=== PATIENT | female | born 1990 | race Caucasian/White ===

== ENCOUNTER 2021-08-03 14:51 | Emergency (ER) | payer OTHER, SELFPAY ==
[2021-08-03 15:01] VITALS: BP 129/88; PULSE 85; RESP 18; TEMP 36.4; O2SAT 100; BMI 28.3
--- NOTE | 2021-08-03 18:16 | ED_ITS ---
HPI - General Adult General Chief complaint: General Medical Stated complaint: dental pain Source: patient Mode of arrival: ambulatory Limitations: no limitations History of Present Illness HPI narrative: Patient presents for left-sided upper tooth pain for couple of days. Patient denies any recent trauma to the face or facial swelling. Patient states she is due for a root canal, but due to they would not perform root canal. Patient is 22 weeks . Patient denies any fever, chills, neck swelling, nausea, vomiting, or shortness of breath. During evaluation patient informed me that also she has not felt baby move since 05:00. Patient denies any abdominal pain or vaginal bleeding. Related Data Previous Rx's Medication Instructions Recorded acetaminophen 325 mg capsule 325 mg PO QID PRN #28 cap 08/03/21 (Tylenol) amoxicillin 500 mg tablet 500 mg PO Q8H 10 Days #30 tab 08/03/21 Allergies Allergy/AdvReac Type Severity Reaction Status Date / Time No Known Allergies Allergy Mild UNKNOWN Verified 08/03/21 15:06 Review of Systems Review of Systems: Yes all other systems are reviewed and are negative Constitutional: Constitutional: Reports as per HPI and Reports no additional constitutional complaints Eyes: Eyes: Reports as per HPI and Reports no additional eye complaints ENT: Reports system reviewed and no additional complaints, except as documented and Reports as per HPI Comments: Dental pain Cardiovascular: Cardiovascular: Reports as per HPI and Reports no additional cardiovascular complaints Respiratory: Respiratory: Reports as per HPI and Reports no additional respiratory complaints Gastrointestinal: Gastrointestinal: Reports as per HPI and Reports no additional gastrointestinal complaints Comments: Not feeling baby move Genitourinary: Genitourinary: Reports no additional female genitourinary complaints and Reports as per HPI Musculoskeletal: Musculoskeletal: Reports no additional musculoskeletal complaints and Reports as per HPI Neurologic: Reports system reviewed and no additional complaints, except as documented and Reports as per HPI Psychiatric: Psychiatric: Reports no additional psychiatric complaints and Reports as per HPI [facility] Past Medical History Medical History (Updated 08/03/21 @ 19:09 by RUDY Jones) Thyroid disease Social History Social History Alcohol intake: never Patient Tobacco Use Status: Never used Tobacco Physical Exam Vital Signs: Vital Signs: Last Vital Signs Temp 97.5 F 08/03/21 15:01 Pulse 85 08/03/21 15:01 Resp 18 08/03/21 15:01 BP 129/88 08/03/21 15:01 Pulse Ox 100 08/03/21 15:01 Body Mass Index 28.3 Const: General: cooperative, healthy appearing, comfortable, no acute distress, well developed, alert, awake and Physically active Orientation/consciousness: patient oriented x3 HENMT: Head: Yes normal to inspection, Yes No palpable skull fracture present, Yes normocephalic, Yes atraumatic and No abrasion Teeth image: 1. Tenderness on palpation. Negative for gum swelling, gum redness, or active pus discharge. Negative for facial swelling or neck swelling. Negative for drooling. Negative for change in voice or hoarseness. Eyes: General: appearance normal, both eyes and all related structures Neck: Neck: Yes normal visual inspection, Yes full ROM, Yes no lymphadenopathy, Yes no meningeal signs, Yes trachea midline, Yes supple and No tender Chest: Chest palpation & inspection: normal inspection of the chest and normal palpation of entire chest wall Resp: Effort & Inspection: normal respiratory effort and able to speak in complete sentences Auscultation: clear to auscultation bilaterally Cardio: Jugular venous distension: no JVD Heart sounds: S1 normal heart sound present and S2 normal heart sound present GI: Other: 5 months Palpation (GI): Soft to palpation, not firm, nontender, no guarding and not rigid : General: No CVA tenderness and Yes no CVA tenderness Back/Spine/Pelvis: Back: no CVA tenderness, No CVA tenderness and No back tenderness Skin: General skin exam: no rashes or lesions noted and elasticity normal Neuro: General: patient oriented x3, gait normal, no meningeal signs and CN's II-XI intact bilaterally Cranial nerves: Yes CN's II-XII intact bilaterally Extrem: Other: Lower extremities negative for swelling, pitting edema, or calf Psych: Appearance: grossly normal, well kempt and not disheveled Course Course Course Narrative: Patient will be given Tylenol and antibiotic prescription. Bedside transabdominal ultrasound shows fetus moving with heart rate of 140. Will consult Dr. Small your OBGYN to see for possible transfer. Reevaluation(s) Reevaluation #1: Dr. Small Recommends patient be transferred to [facility] for monitoring of fetus on the strip. 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 Patient states she she should go to [facility] immediately if patient having abdominal pain, vaginal bleeding, decrease babys movement. Patient states she will go in the morning. Patient informs necessity for evaluation of fetus and the importance of heart rhythm on the strip and monertering of fetus, but patient states she has to take care of her daughter. Patient discharged with antibiotic. Time: 19:05 Medical Decision Making MDM Narrative Medical decision making narrative: Tooth pain Discharge Plan Discharge Clinical Impression: Toothache, Currently Patient Disposition: Home, Self-Care Instructions: Toothache (ED), at 19 to 22 Weeks (ED) Additional Instructions: Dr. Staci Cameron, our OBGYN on-call recommended you be transferred to [facility] for further evaluation/monitoring immediately after being discharged. Since you presently refuse to go to [facility], I would recommend going to [facility] immediately if once again not able to feel fetus, severe abdominal pain, vaginal bleeding, weakness, dizziness, nausea, vomiting, or any other concerning symptoms. Prescriptions: New amoxicillin 500 mg tablet 500 mg PO Q8H 10 Days Qty: 30 RF: 0 acetaminophen [Tylenol] 325 mg capsule 325 mg PO QID PRN (Reason: pain) Qty: 28 RF: 0 Interventions: ED Discharge Assessment Last Done: 08/03/21 19:47 Discharge Date/Time: 08/03/21 19:49 Print Language: Vietnamese
--- NOTE | 2021-08-03 18:37 | PC.NURSE ---
heart tone 140
--- NOTE | 2021-08-03 19:16 | PM.OBCN ---
OB Consult Note - [facility] Data Service Date: 08/03/21 Primary Care Provider: None Physician Narrative I was consulted regarding Pascale Dooley who is a 31 year old female who presented to the emergency room at 22 weeks of gestation with toothache and complaining of decreased movement, no abdominal cramping vaginal bleeding or leakage of fluid. 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 Review of Systems ROS Unobtainable: All systems reviewed & are unremarkable except as noted in HPI and below OB PMFSH Past Medical History Medical History (Updated 08/03/21 @ 19:09 by RUDY Jones) Thyroid disease Social History Social History Alcohol intake: never Patient Tobacco Use Status: Never used Tobacco Use of substances other than those prescribed or required for medical reasons: No Advance Directives: No Advance Directives Information Provided: No Patient : Yes Meds Allergies Allergy/AdvReac Type Severity Reaction Status Date / Time No Known Allergies Allergy Mild UNKNOWN Verified 08/03/21 15:06 OB - CN: A/P Assessment and Plan (1) Currently : Status: Acute Assessment and Plan: Since the patient is having decreased movement and 22 weeks of gestation , I recommended for the [facility], and OB ultrasound for a well-being check. I was contacted back by RUDY Veloz stating that the patient declined to go to [facility], recommended for the following instructions to be explained to the patient the importance of going to [facility] triage area to evaluate well-being with a heart rate strip monitoring and an OB ultrasound to rule out any abnormalities and to explain to the patient the risk of not going l might affect patient well-being, delay diagnosis of any abnormality and can lead to possiblefetal . I was contacted by [employer] regarding this patient, I did not see the patient or examine her. (2) Toothache: Status: Acute Assessment and Plan: Recommended for the patient to call her dentist regarding treatment recommendation for toothache. Tylenol p.r.n.
== END 2021-08-03 19:49 | disposition home or self-care (01) ==
PROVIDERS: Emergency Provider Emergency Medicine
DX: K08.89 Other specified disorders of teeth and supporting structures (principal)
CPT/HCPCS: 99283; 99284

== ENCOUNTER 2022-01-02 08:44 | Emergency (ER) | payer OTHER, SELFPAY ==
--- NOTE | ~2022-01-02 | CT_ITS ---
EXAMINATION: CT ANGIOGRAM OF THE CHEST WITH AND WITHOUT CONTRAST (CT PULMONARY ANGIOGRAM FOR PE) CLINICAL INFORMATION: Reason for Exam elevated ddimer. . pleuritic cp COMPARISON: Previous chest x-ray September 2015 TECHNIQUE: Prior to contrast administration, noncontrast localization images were obtained. Subsequently, multidetector volumetric imaging was performed from the thoracic inlet to below the diaphragms following the administration of 80 mL Omnipaque 350 intravenous contrast. No contrast reaction reported Sagittal, coronal, and MIP oblique sagittal reformatted images were obtained on the CT workstation, uploaded to PACS, and reviewed. This CT examination was performed using dose optimization techniques as appropriate, variously including the following: *Automated exposure control *Adjustment of mA and/or kV according to patient size (this includes techniques or standardized protocols for targeted exams where dose is matched to indication/reason for exam; i.e. extremities or head) *Use of iterative reconstruction technique Total exam dose-length product mGy-cm FINDINGS: QUALITY OF STUDY/CONTRAST BOLUS: Satisfactory. PULMONARY ARTERIES: No central or segmental pulmonary emboli. THORACIC AORTA: No aneurysm or dissection. LUNG: No focal consolidation, nodules or masses. PLEURA: No pleural effusion or pneumothorax. MEDIASTINUM: Normal heart size. No pericardial effusion. No hilar or mediastinal lymphadenopathy. No evidence of septal bowing or right heart strain. CHEST WALL/AXILLA: No axillary or internal mammary lymphadenopathy. OSSEOUS STRUCTURES: No acute or suspicious osseous abnormality. UPPER ABDOMEN: There are small gallstones. No reflux of contrast into the hepatic veins to suggest elevated right heart pressures. CT/CT angio chest PE protocol IMPRESSION: No evidence of pulmonary embolism. VTE: negative
[2022-01-02 10:07] VITALS: BP 117/76; PULSE 70; RESP 14; TEMP 36.6; O2SAT 99; BMI 30.7
[2022-01-02 11:22] LABS: MANUAL DIFF FLAG NO
[2022-01-02 11:24] LABS: Basophils Percent Auto 0.3 % (0-2); Eosinophils Absolute Auto 0.1 X10*3/uL (0.0-0.4); Eosinophils Percent Auto 1.4 % (0-4); Hematocrit 42.2 % (37.0-47.0); Hemoglobin 14.1 g/dl (12.0-16.0); Imm Gran Abs Auto 0.01 X10*3/uL (0.00-0.03); Imm Gran Pct Auto 0.2 % (0.0-0.4); Lymphocytes Absolute Auto 1.3 X10*3/uL (1.2-4.9); Lymphocytes Percent Auto 22.7 % (20-40); Mean Corpuscular HGB Conc 33.4 g/dl (31.0-35.0); Mean Corpuscular Hemoglobin 32.7 pg (27.0-33.0); Mean Corpuscular Volume 97.9 fL (80.0-98.0); Mean Platelet Volume 9.9 fL (9.4-12.3); Monocytes Absolute Auto 0.3 X10*3/uL (0.1-1.2); Monocytes Percent Auto 5.6 % (2-11); Neutrophils Percent Auto 69.8 % (45-73); Platelet Count 341 X10*3/uL (160-400); Red Blood Count 4.31 X10*6/uL (4.20-5.50); Red Cell Distribution Width 12.1 % (11.0-16.0); White Blood Count 5.7 X10*3/uL (4.8-10.8)
--- NOTE | 2022-01-02 11:31 | ED_ITS ---
HPI - Back Pain/Injury General Chief Complaint: Back Pain/Injury Stated Complaint: Back pain Time Seen by Provider: 01/02/22 10:12 Source: patient Mode of arrival: ambulatory History of Present Illness HPI Narrative: 31-year-old female with a past medical history of thyroid disease, 2 months , presenting to the ED complaining of acute on chronic mid back pain worsening x 3 days. Denies known injury/trauma or fall. Reports pain worse with deep breathing with mild associated SOB from pain. Denies CP, fever, chills, hematuria, flank pain, dysuria, abdominal pain, urinary incontinence/retention. Currently on Depo-Provera. Denies recent travel, history go MD elicited complaint: back pain Pertinent past history: prior back pain Onset (ago): day(s) Related Data Previous Rx's Medication Instructions Recorded acetaminophen 325 mg capsule 325 mg PO QID PRN #28 cap 08/03/21 (Tylenol) amoxicillin 500 mg tablet 500 mg PO Q8H 10 Days #30 tab 08/03/21 acetaminophen 500 mg tablet 500 mg PO Q6H PRN #20 tab 01/02/22 (Tylenol Extra Strength) cyclobenzaprine 5 mg tablet 5 mg PO Q8H PRN 5 Days #14 tab 01/02/22 lidocaine 5 % topical patch 1 patch TOPICAL DAILY PRN #30 ea 01/02/22 (Lidoderm) MDD remove after 12 hours naproxen 500 mg tablet 500 mg PO BID PRN 10 Days #20 tab 01/02/22 Allergies Allergy/AdvReac Type Severity Reaction Status Date / Time No Known Allergies Allergy Mild UNKNOWN Verified 08/03/21 15:06 Review of Systems Review of Systems: Constitutional: No Fever, No Chills, No Fatigue, No Malaise ENT/Mouth: No Ear Pain, No Nasal Congestion, No sore throat, No Rhinorrhea, No Swallowing Difficulty Eyes: No Eye Pain, No Swelling, No Redness Cardiovascular: No Chest Pain, + SOB, No Dyspnea on Exertion, No Orthopnea, No Edema, No Palpitations Respiratory: No Cough, No Sputum, No Dyspnea Gastrointestinal: No Nausea, No Vomiting, No Diarrhea, No Constipation, No Abdominal pain Genitourinary: No Dysuria, No Hematuria, No Urinary Incontinence/retention, No Flank Pain, No Urinary Flow Changes Musculoskeletal: +back joint pain, No Myalgias, No Joint Swelling Skin: No Skin Lesions, No rash Neuro: No Weakness, No Numbness, No Paresthesias, No Headache Yes all other systems are reviewed and are negative Neurologic: Denies Sensory deficit (Neuro) [facility] Past Medical History Attestation statement: The following information was validated with the patient. Medical History Thyroid disease Social History Social History Alcohol intake: never Patient Tobacco Use Status: Never used Tobacco Advance Directives: No Patient : No Physical Exam Vital Signs: Vital Signs: Last Vital Signs Temp 97.8 F 01/02/22 10:07 Pulse 70 01/02/22 10:07 Resp 14 01/02/22 10:07 BP 117/76 01/02/22 10:07 Pulse Ox 99 01/02/22 10:07 BMI result Body Mass Index 30.7 Const: General: cooperative, healthy appearing, comfortable and no acute distress Orientation/consciousness: patient oriented x3 Limitations: no limitations HEENT: Head: Yes normal to inspection and Yes normocephalic Ears: hearing grossly normal bilaterally General nose exam: Normal external nose present Face and sinus: Yes normal facial exam Eyes: General: appearance normal, both eyes and all related structures EOM: EOMs intact bilaterally Neck: Neck: Yes normal visual inspection and Yes no meningeal signs Chest: Chest palpation & inspection: normal inspection of the chest, no crepitus and no tenderness Resp: Effort & Inspection: normal respiratory effort and no respiratory distress Auscultation: clear to auscultation bilaterally Cardio: Rate: regular rate Heart sounds: S1 normal heart sound present and S2 normal heart sound present GI: Inspection: Yes normal to inspection Palpation (GI): Soft to palpation, nontender, no guarding and not rigid : General: Yes no CVA tenderness Back/Spine/Pelvis: Other: No midline cervical/thoracic or lumbar spinous tenderness/step-off or deformity. + bilateral thoracic paraspinal tenderness. No CVA tenderness Back: no CVA tenderness Skin: Rashes: no rashes Wounds: no wounds Neuro: Other: Ambulating with steady gait General: patient oriented x3, gait normal, tone normal, moves all extremities, no meningeal signs and no focal motor deficits Gait exam (Neuro): Normal gait present Motor exam (neuro): 5/5 motor strength present throughout Sensory Exam: No Sensory deficit (Neuro) Extrem: General: Yes normal to inspection Course Course Course Narrative: -1140--D-dimer elevated to 630 > will obtain CTA to rule out PE CT angio chest PE protocol IMPRESSION: No evidence of pulmonary embolism. VTE: negative >> results discussed with patient including worrisome signs and symptoms and strict return precautions and needed follow-up with PCP. Patient not currently breast feeding MDM - Back Pain/Injury MDM Narrative Medical decision making narrative: 31-year-old female with a past medical history of thyroid disease, 2 months , presenting to the ED complaining of acute on chronic mid back pain worsening x 3 days. On exam vital signs stable, NAD/nontoxic, no midline spinous tenderness throughout, no focal neuro deficits. Lungs CTA, no CVA tenderness. Concern for MSK pain/strain vs PE RN low concern for follow/UTI or renal stone. Low concern for pneumonia. Plan: Labs including D-dimer Medical Records Attestation: I reviewed the patient's medical records. Lab Data Attestation: I reviewed the patient's lab results. Result diagrams: 01/02/22 11:12 01/02/22 11:12 Labs: Lab Results 01/02/22 01/02/22 01/02/22 Range/Units 11:12 11:12 11:12 WBC 5.7 (4.8-10.8) X10*3/uL RBC 4.31 (4.20-5.50) X10*6/uL Hgb 14.1 (12.0-16.0) g/dl Hct 42.2 (37.0-47.0) % MCV 97.9 (80.0-98.0) fL MCH 32.7 (27.0-33.0) pg MCHC 33.4 (31.0-35.0) g/dl RDW 12.1 (11.0-16.0) % Plt Count 341 (160-400) X10*3/uL MPV 9.9 (9.4-12.3) fL Immature Gran % (Auto) 0.2 (0.0-0.4) % Neut % (Auto) 69.8 (45-73) % Lymph % (Auto) 22.7 (20-40) % [place] % (Auto) 5.6 (2-11) % Eos % (Auto) 1.4 (0-4) % Baso % (Auto) 0.3 (0-2) % Lymph # (Auto) 1.3 (1.2-4.9) X10*3/uL [place] # (Auto) 0.3 (0.1-1.2) X10*3/uL Eos # (Auto) 0.1 (0.0-0.4) X10*3/uL Baso # (Auto) 0.0 (0.0-0.2) X10*3/uL Abs Immat Gran (auto) 0.01 (0.00-0.03) X10*3/uL Absolute Neuts (auto) 4.0 (2.0-8.3) x10*3/uL Absolute Nucleated RBC 0.000 (0.0-0.012) X10*3/uL Nucleated RBC % (auto) 0.0 (0.0-0.2) /100WBC D-Dimer High Sensitivty 630 NG/ML Sodium 138 (135-145) mmol/L Potassium 4.3 (3.3-5.1) mmol/L Chloride 107 (96-108) mmol/L Carbon Dioxide 23 (22-29) mmol/L Anion Gap 12 (12-20) BUN 6 L (9-16) mg/dL Creatinine 0.63 (0.5-1.4) mg/dL Estim Creat Clear Calc 132.2 Estimated GFR > 60 Random Glucose 81 (60-115) mg/dL Calcium 9.4 (8.4-10.2) mg/dL B-Natriuretic Peptide (<100) pg/mL 01/02/22 Range/Units 11:12 WBC (4.8-10.8) X10*3/uL RBC (4.20-5.50) X10*6/uL Hgb (12.0-16.0) g/dl Hct (37.0-47.0) % MCV (80.0-98.0) fL MCH (27.0-33.0) pg MCHC (31.0-35.0) g/dl RDW (11.0-16.0) % Plt Count (160-400) X10*3/uL MPV (9.4-12.3) fL Immature Gran % (Auto) (0.0-0.4) % Neut % (Auto) (45-73) % Lymph % (Auto) (20-40) % [place] % (Auto) (2-11) % Eos % (Auto) (0-4) % Baso % (Auto) (0-2) % Lymph # (Auto) (1.2-4.9) X10*3/uL [place] # (Auto) (0.1-1.2) X10*3/uL Eos # (Auto) (0.0-0.4) X10*3/uL Baso # (Auto) (0.0-0.2) X10*3/uL Abs Immat Gran (auto) (0.00-0.03) X10*3/uL Absolute Neuts (auto) (2.0-8.3) x10*3/uL Absolute Nucleated RBC (0.0-0.012) X10*3/uL Nucleated RBC % (auto) (0.0-0.2) /100WBC D-Dimer High Sensitivty NG/ML Sodium (135-145) mmol/L Potassium (3.3-5.1) mmol/L Chloride (96-108) mmol/L Carbon Dioxide (22-29) mmol/L Anion Gap (12-20) BUN (9-16) mg/dL Creatinine (0.5-1.4) mg/dL Estim Creat Clear Calc Estimated GFR Random Glucose (60-115) mg/dL Calcium (8.4-10.2) mg/dL B-Natriuretic Peptide 29 (<100) pg/mL Discharge Plan Discharge Clinical Impression: Thoracic back pain Patient Disposition: Home, Self-Care Instructions: Thoracic Pain (ED) Additional Instructions: Your CT scan was unremarkable, did not show a blood clot Your pain is likely musculoskeletal Flexeril is a muscle relaxer, take at night as it makes you drowsy, do not drive, drink alcohol, or operate machinery while taking it Naproxen as an anti-inflammatory / pain medication, take with food Lidoderm patches are numbing patches, apply to painful area In addition take Tylenol at home If symptoms persist or worsen, pain becomes unbearable, you developed urinary retention or incontinence, or weakness return to the ED Prescriptions: New acetaminophen [Tylenol Extra Strength] 500 mg tablet 500 mg PO Q6H PRN (Reason: pain or fever) Qty: 20 0RF lidocaine [Lidoderm] 5 % adhesive patch,medicated 1 patch topical DAILY MDD remove after 12 hours PRN (Reason: pain) Qty: 30 0RF Rx Instructions: leave on most painful area for up to 12 hrs naproxen 500 mg tablet 500 mg PO BID PRN (Reason: pain) 10 Days Qty: 20 0RF cyclobenzaprine 5 mg tablet 5 mg PO Q8H PRN (Reason: pain (scale score 7-10)) 5 Days Qty: 14 0RF No Action amoxicillin 500 mg tablet 500 mg PO Q8H 10 Days Qty: 30 0RF acetaminophen [Tylenol] 325 mg capsule 325 mg PO QID PRN (Reason: pain) Qty: 28 0RF Referrals: Physician,None [Primary Care Provider] - 2 days Stand Alone Forms: Work/School Release
[2022-01-02 11:34] LABS: D Dimer High Sensitivity 630 NG/ML
[2022-01-02 11:50] LABS: Anion Gap 12 (12-20); Blood Urea Nitrogen 6 mg/dL (9-16); Calcium 9.4 mg/dL (8.4-10.2); Carbon Dioxide 23 mmol/L (22-29); Chloride 107 mmol/L (96-108); Creatinine Clr Calc Pharmacy 132.2; Estimated Glomerular Filt Rate > 60; Glucose Random 81 mg/dL (60-115); Potassium 4.3 mmol/L (3.3-5.1); Sodium 138 mmol/L (135-145)
[2022-01-02] MEDS: 0.9 % Sodium Chloride 500 ML 999 ML IV (11:50)
[2022-01-02 11:58] LABS: B Type Natriuretic Peptide 29 pg/mL (<100)
[2022-01-02] MEDS: iohexoL 350 MG/ML 100 ML INFUS..BTL IV (12:07)
== END 2022-01-02 13:33 | disposition home or self-care (01) ==
PROVIDERS: Physician Assistant; Emergency Provider Emergency Medicine Emergency Medical Services
DX: M54.6 Pain in thoracic spine (principal); R06.02 Shortness of breath
CPT/HCPCS: 36415; 71275; 80048; 83880; 85025; 85379; 99284; Q9967

== ENCOUNTER 2022-01-30 16:53 | Emergency (ER) | payer OTHER, SELFPAY ==
[2022-01-30 17:10] VITALS: BP 117/61; PULSE 75; RESP 16; TEMP 36.3; O2SAT 99; BMI 30.5
[2022-01-30] MEDS: Acetaminophen 325 MG TABLET 650 MG PO (17:37)
[2022-01-30 18:02] LABS: Appearance Urine HAZY; Color Urine ORANGE; Glucose Urine UA 100 MG/DL (NEG); Leukocyte Esterase Urine 2+ (NEG); Nitrite Urine POS (NEG); Specific Gravity - Urine 1.025 (1.005-1.025); UACC Culture Trigger YES; Urine Blood TRACE (NEG); Urine Ketones 5 MG/DL (NEG); Urine Protein 2+ MG/DL (NEG-TRACE)
[2022-01-30 18:12] LABS: Bacteria Urine 2+ /LPF; Squamous Epithelial Cell Urine 3+ /LPF
--- NOTE | 2022-01-30 19:10 | ED.FEMALEGU ---
HPI - Female Genitourinary General Chief complaint: Urogenital-Female Stated complaint: Uti Time Seen by Provider: 01/30/22 19:10 Source: patient Mode of arrival: ambulatory Limitations: no limitations History of Present Illness HPI Narrative: 31 y/o female presents to the ER for evaluation of UTI symptoms that started 4 days ago. She states she has burning with urination, bladder pain, increased urinary frequency and urgency. She states her urine is dark and foul smelling. She denies any abdominal pain, nausea, vomiting, fever, chills. She has history of UTI in the past and states it feels similar. She denies any chance of . She denies any concern for STI, denies vaginal discharge. She has been taking [id number] AZO with no improvement in her symptoms. MD elicited complaint: UTI Onset (ago): day(s) (4) Location of symptoms: suprapubic and urethra Severity: severe Female Urogenital Radiation: Suprapubic Severity scale (1-10): 10 Quality of pain: burning Consistency: intermittent Vaginal discharge: none Vaginal bleeding: none Urinary symptoms: Dysuria, Urgency, Frequency and Foul Smelling Urine Exacerbating factors: urination Relieving factors: none Treatment prior to arrival: none Patient : No Related Data Previous Rx's Medication Instructions Recorded acetaminophen 325 mg capsule 325 mg PO QID PRN #28 cap 08/03/21 (Tylenol) amoxicillin 500 mg tablet 500 mg PO Q8H 10 Days #30 tab 08/03/21 acetaminophen 500 mg tablet 500 mg PO Q6H PRN #20 tab 01/02/22 (Tylenol Extra Strength) cyclobenzaprine 5 mg tablet 5 mg PO Q8H PRN 5 Days #14 tab 01/02/22 lidocaine 5 % topical patch 1 patch TOPICAL DAILY PRN #30 ea 01/02/22 (Lidoderm) MDD remove after 12 hours naproxen 500 mg tablet 500 mg PO BID PRN 10 Days #20 tab 01/02/22 nitrofurantoin 100 mg PO Q12H 7 Days #14 cap 01/30/22 monohydrate/macrocrystals 100 mg capsule (Macrobid) phenazopyridine 100 mg tablet 100 mg PO TID PRN #6 tab 01/30/22 (Pyridium) Allergies Allergy/AdvReac Type Severity Reaction Status Date / Time No Known Allergies Allergy Mild UNKNOWN Verified 08/03/21 15:06 Review of Systems Review of Systems: Constitutional: No Fever, No Chills ENT/Mouth: No sore throat, No Rhinorrhea Cardiovascular: No Chest Pain, No SOB Gastrointestinal: No Nausea, No Vomiting, No Diarrhea, No abdominal Pain Genitourinary: + Dysuria, + Urinary Frequency, No Hematuria Musculoskeletal: No joint pain, No Myalgias Skin: No Skin Lesions, No rash Heme/Lymph: No Bruising, No Lymphadenopathy Endocrine: + Polyuria, No Polydipsia PMFSH Past Medical History Medical History Thyroid disease Social History Social History Alcohol intake: never Patient Tobacco Use Status: Never used Tobacco Patient : No Physical Exam Vital Signs: Vital Signs: Last Vital Signs Temp 97.3 F 01/30/22 17:10 Pulse 75 01/30/22 17:10 Resp 16 01/30/22 17:10 BP 117/61 01/30/22 17:10 Pulse Ox 99 01/30/22 17:10 BMI result Body Mass Index 30.5 Appearance: Alert. Oriented X3. No acute distress. HEENT: Normal external inspection Neck: Normal inspection. Neck supple. CVS: Normal heart rate and rhythm. Pulses normal. Respiratory: No respiratory distress. Breath sounds normal. Abdomen: Soft mild suprapubic tenderness. No rebound or guarding. +BS x4 no CVA tenderness. Pelvic deferred. Skin: Skin warm and dry. Normal skin color. Normal skin turgor. No rashes. Extremities: Normal inspection x4 Neuro: Oriented X 3. Grossly normal, nonfocal Course Course Course Narrative: 31-year-old female presents to the ER with UTI symptoms for the last 4 days. On arrival she is hemodynamically stable and afebrile. Her urinalysis is grossly positive for infection. Will give a dose of Macrobid and Pyridium here and discharge her on a course of antibiotics. She is stable for discharge home with plan to follow-up with her PCP as needed. Return precautions discussed. MDM - Female Genitourinary Lab Data Labs: Lab Results 01/30/22 Range/Units 17:39 Urine Color ORANGE A Urine Appearance HAZY Urine pH 5.0 (5.0-8.0) Ur Specific [place] 1.025 (1.005-1.025) Urine Protein 2+ H (NEG-TRACE) MG/DL Urine Glucose (UA) 100 H (NEG) MG/DL Urine Ketones 5 (NEG) MG/DL Urine Blood TRACE (NEG) Urine Nitrite POS H (NEG) Ur Leukocyte Esterase 2+ H (NEG) Urine RBC 1-4 (0) /HPF Urine WBC 76-150 H (0-4) /HPF Ur Squamous Epith Cells 3+ /LPF Urine Bacteria 2+ /LPF Discharge Plan Discharge Clinical Impression: Urinary tract infection Patient Disposition: Home, Self-Care Instructions: Urinary Tract Infection in Women (DC) Additional Instructions: Your urine test today showed infection. Take the prescribed antibiotic as directed, complete the entire course. Drink plenty of water. Take the prescribed medication called Pyridium to help with bladder pain. This will turn your urine orange and that is a normal side effect. If you develop new or worsening symptoms call 911 or come back to the ER for further evaluation. Prescriptions: New nitrofurantoin monohyd/m-cryst [Macrobid] 100 mg capsule 100 mg PO Q12H 7 Days Qty: 14 0RF Rx Instructions: must administer with a meal/food phenazopyridine [Pyridium] 100 mg tablet 100 mg PO TID PRN (Reason: pain) Qty: 6 0RF No Action amoxicillin 500 mg tablet 500 mg PO Q8H 10 Days Qty: 30 0RF acetaminophen [Tylenol] 325 mg capsule 325 mg PO QID PRN (Reason: pain) Qty: 28 0RF acetaminophen [Tylenol Extra Strength] 500 mg tablet 500 mg PO Q6H PRN (Reason: pain or fever) Qty: 20 0RF lidocaine [Lidoderm] 5 % adhesive patch,medicated 1 patch topical DAILY MDD remove after 12 hours PRN (Reason: pain) Qty: 30 0RF Rx Instructions: leave on most painful area for up to 12 hrs naproxen 500 mg tablet 500 mg PO BID PRN (Reason: pain) 10 Days Qty: 20 0RF cyclobenzaprine 5 mg tablet 5 mg PO Q8H PRN (Reason: pain (scale score 7-10)) 5 Days Qty: 14 0RF
[2022-01-30] MEDS: Nitrofurantoin Monohyd/M-Cryst 100 MG CAPSULE PO (19:40)
[2022-01-30] MEDS: Phenazopyridine HCL 100 MG TABLET PO (19:40)
== END 2022-01-30 20:14 | disposition home or self-care (01) ==
LOC: HO.ED 19:25
PROVIDERS: Physician Assistant; Emergency Provider Emergency Medicine Emergency Medical Services
DX: N39.0 Urinary tract infection, site not specified (principal); Z79.899 Other long term (current) drug therapy
CPT/HCPCS: 81001; 87086; 99283; 99284

== ENCOUNTER 2022-08-27 16:17 | Emergency (ER) | payer OTHER, SELFPAY ==
[2022-08-27 16:43] VITALS: BP 123/62; PULSE 97; RESP 18; TEMP 36.5; O2SAT 100; BMI 30.9
--- NOTE | 2022-08-27 16:43 | ED_ITS ---
HPI - General Adult General Chief complaint: General Medical <Leanne Blackwood MD - Last Filed: 08/27/22 16:49> Stated complaint: spider bite infection <Leanne Blackwood MD - Last Filed: 08/27/22 16:49> Time Seen by Provider: 08/27/22 20:52 <Leanne Blackwood MD - Last Filed: 08/27/22 16:49> Source: patient <Kalyan Ontiveros MD - Last Filed: 08/27/22 23:45> Mode of arrival: ambulatory <Kalyan Ontiveros MD - Last Filed: 08/27/22 23:45> Limitations: no limitations <Kalyan Ontiveros MD - Last Filed: 08/27/22 23:45> History of Present Illness HPI narrative: Patient had? Insect/spider bite the is getting bigger and blackish with surrounding erythema patient does not know what caused it . No fever no chills <Kalyan Ontiveros MD - Last Filed: 08/27/22 23:45> Related Data Home medications: Previous Rx's Medication Instructions Recorded acetaminophen 325 mg capsule 325 mg PO QID PRN pain #28 caps 08/03/21 (Tylenol) amoxicillin 500 mg tablet 500 mg PO Q8H dental 10 days #30 08/03/21 tabs acetaminophen 500 mg tablet 500 mg PO Q6H PRN pain or fever 01/02/22 (Tylenol Extra Strength) #20 tabs cyclobenzaprine 5 mg tablet 5 mg PO Q8H PRN pain (scale score 01/02/22 7-10) 5 days #14 tabs lidocaine 5 % topical patch 1 patch topical DAILY PRN pain #30 01/02/22 (Lidoderm) ea naproxen 500 mg tablet 500 mg PO BID PRN pain 10 days #20 01/02/22 tabs nitrofurantoin 100 mg PO Q12H 7 days #14 caps 01/30/22 monohydrate/macrocrystals 100 mg capsule (Macrobid) phenazopyridine 100 mg tablet 100 mg PO TID PRN pain 6 doses #6 01/30/22 (Pyridium) tabs cephalexin 500 mg capsule 500 mg PO QID 10 days #40 caps 08/27/22 doxycycline hyclate 100 mg tablet 100 mg PO BID #20 tabs 08/27/22 <Leanne Blackwood MD - Last Filed: 08/27/22 16:49> Allergies/adverse reactions: Allergies Allergy/AdvReac Type Severity Reaction Status Date / Time No Known Allergies Allergy Mild UNKNOWN Verified 08/03/21 15:06 <Leanne Blackwood MD - Last Filed: 08/27/22 16:49> Review of Systems Review of Systems: Yes all other systems are reviewed and are negative <Kalyan Ontiveros MD - Last Filed: 08/27/22 23:45> [facility] Past Medical History Medical History: Medical History Thyroid disease <Leanne Blackwood MD - Last Filed: 08/27/22 16:49> Social History Social History: Social History Alcohol intake: never Patient Tobacco Use Status: Never used Tobacco Advance Directives: No Advance Directives Information Provided: No <Leanne Blackwood MD - Last Filed: 08/27/22 16:49> Physical Exam ED Vital Signs: Vital Signs - 24 hr 08/27/22 16:43 08/27/22 21:01 Temperature 97.7 F Pulse Rate 97 80 Respiratory Rate 18 18 Blood Pressure 123/62 106/61 Pulse Oximetry 100 100 Oxygen Delivery Method Room Air Room Air BMI result Body Mass Index 30.9 <Leanne Blackwood MD - Last Filed: 08/27/22 16:49> Vital Signs - 24 hr 08/27/22 16:43 08/27/22 21:01 Temperature 97.7 F Pulse Rate 97 80 Respiratory Rate 18 18 Blood Pressure 123/62 106/61 Pulse Oximetry 100 100 Oxygen Delivery Method Room Air Room Air BMI result Body Mass Index 30.9 <Kalyan Ontiveros MD - Last Filed: 08/27/22 23:45> Appearance: Alert. Oriented X3. No acute distress. CVS: Normal heart rate and rhythm. Pulses normal. Respiratory: No respiratory distress. Abdomen: Soft and nontender. B Neuro: Oriented X 3. <Kalyan Ontiveros MD - Last Filed: 08/27/22 23:45> Extrem Upper/lower leg/hip images: 1. 10 x 10 cm cellulitic area with 3 x 3 cm induration in central area with blackish eschar <Leanne Blackwood MD - Last Filed: 08/27/22 16:49> 1. 10 x 10 cm cellulitic area with 3 x 3 cm induration in central area with blackish eschar <Kalyan Ontiveros MD - Last Filed: 08/27/22 23:45> Course Course Course Narrative: Triage JULISSA: -pt comes to the ED c/o pain/insect bite 4 days ago in the inner right thigh -c/o significant pain, no fever or chills -PE: 10cm x 10cm erythematous patch, ulceration in middle, no drainage, very tender to palpation -basic labs pending, may need bedside US to determine if there's a deep abcess underneath +/- I&D -on PE noted to have goiter, hasnt been taking meds for a long time/months <Leanne Blackwood MD - Last Filed: 08/27/22 16:49> Medications Administered Discontinued Medications Generic Name Dose Route Start Last Admin Trade Name Freq PRN Reason Stop Dose Admin Cephalexin HCl 500 mg 08/27/22 22:59 08/27/22 23:37 Cephalexin 500 Mg Capsule PO 08/27/22 23:00 500 mg ONCE ONE Administration Diphtheria/Tetanus/Acell Pertussis 0.5 ml 08/27/22 23:23 08/27/22 23:39 Diphth,Pertus(Acell),Tet Adult 0.5 Ml Syringe IM 08/27/22 23:24 0.5 ml .ONCE ONE Administration Doxycycline Monohydrate 100 mg 08/27/22 22:59 08/27/22 23:38 Doxycycline Monohydrate 100 Mg Capsule PO 08/27/22 23:00 100 mg ONCE ONE Administration <Leanne Blackwood MD - Last Filed: 08/27/22 16:49> Medications Administered Discontinued Medications Generic Name Dose Route Start Last Admin Trade Name Freq PRN Reason Stop Dose Admin Cephalexin HCl 500 mg 08/27/22 22:59 08/27/22 23:37 Cephalexin 500 Mg Capsule PO 08/27/22 23:00 500 mg ONCE ONE Administration Diphtheria/Tetanus/Acell Pertussis 0.5 ml 08/27/22 23:23 08/27/22 23:39 Diphth,Pertus(Acell),Tet Adult 0.5 Ml Syringe IM 08/27/22 23:24 0.5 ml .ONCE ONE Administration Doxycycline Monohydrate 100 mg 08/27/22 22:59 08/27/22 23:38 Doxycycline Monohydrate 100 Mg Capsule PO 08/27/22 23:00 100 mg ONCE ONE Administration <Kalyan Ontiveros MD - Last Filed: 08/27/22 23:45> Procedures Abscess I/D Site: lower extremity (Right thigh) <Kalyan Ontiveros MD - Last Filed: 08/27/22 23:45> Side (if applicable): right <Kalyan Ontiveros MD - Last Filed: 08/27/22 23:45> Local Anesthetic: lidocaine 1% <Kalyan Ontiveros MD - Last Filed: 08/27/22 23:45> Amount of anesthesia used (mL): 10 <Kalyan Ontiveros MD - Last Filed: 08/27/22 23:45> Technique: incised with blade <Kalyan Ontiveros MD - Last Filed: 08/27/22 23:45> Amount of fluid expressed (mL): 2 <Kalyan Ontiveros MD - Last Filed: 08/27/22 23:45> Sent for culture/gram staining?: Yes <Kalyan Ontiveros MD - Last Filed: 08/27/22 23:45> Irrigation: No <Kalyan Ontiveros MD - Last Filed: 08/27/22 23:45> Packing used?: iodoform <Kalyan Ontiveros MD - Last Filed: 08/27/22 23:45> Complications: pain <Kalyan Ontiveros MD - Last Filed: 08/27/22 23:45> Medical Decision Making Lab Data Result diagrams: : 08/27/22 19:56 08/27/22 19:56 <Leanne Blackwood MD - Last Filed: 08/27/22 16:49> Labs: Lab Results 08/27/22 08/27/22 08/27/22 Range/Units 19:56 19:56 19:56 WBC 9.8 (4.8-10.8) X10*3/uL RBC 4.05 L (4.20-5.50) X10*6/uL Hgb 13.0 (12.0-16.0) g/dl Hct 39.4 (37.0-47.0) % MCV 97.3 (80.0-98.0) fL MCH 32.1 (27.0-33.0) pg MCHC 33.0 (31.0-35.0) g/dl RDW 12.4 (11.0-16.0) % Plt Count 322 (160-400) X10*3/uL MPV 9.8 (9.4-12.3) fL Immature Gran % (Auto) 0.3 (0.0-0.4) % Neut % (Auto) 75.8 H (45-73) % Lymph % (Auto) 17.8 L (20-40) % [place] % (Auto) 5.0 (2-11) % Eos % (Auto) 0.7 (0-4) % Baso % (Auto) 0.4 (0-2) % Lymph # (Auto) 1.7 (1.2-4.9) X10*3/uL [place] # (Auto) 0.5 (0.1-1.2) X10*3/uL Eos # (Auto) 0.1 (0.0-0.4) X10*3/uL Baso # (Auto) 0.0 (0.0-0.2) X10*3/uL Abs Immat Gran (auto) 0.03 (0.00-0.03) X10*3/uL Absolute Neuts (auto) 7.4 (2.0-8.3) x10*3/uL Absolute Nucleated RBC 0.000 (0.0-0.012) X10*3/uL Nucleated RBC % (auto) 0.0 (0.0-0.2) /100WBC Sodium 144 (135-145) mmol/L Potassium 4.0 (3.3-5.1) mmol/L Chloride 109 H (96-108) mmol/L Carbon Dioxide 24 (22-29) mmol/L Anion Gap 15 (12-20) BUN 12 D (9-16) mg/dL Creatinine 0.69 (0.5-1.4) mg/dL Estim Creat Clear Calc 119.9 Estimated GFR > 60 Random Glucose 77 (60-115) mg/dL Calcium 8.9 (8.4-10.2) mg/dL TSH 5.00 H (0.32-4.0) uIU/mL Free T4 0.98 (0.71-1.85) ng/dL <Leanne Blackwood MD - Last Filed: 08/27/22 16:49> Lab Results 08/27/22 08/27/22 08/27/22 Range/Units 19:56 19:56 19:56 WBC 9.8 (4.8-10.8) X10*3/uL RBC 4.05 L (4.20-5.50) X10*6/uL Hgb 13.0 (12.0-16.0) g/dl Hct 39.4 (37.0-47.0) % MCV 97.3 (80.0-98.0) fL MCH 32.1 (27.0-33.0) pg MCHC 33.0 (31.0-35.0) g/dl RDW 12.4 (11.0-16.0) % Plt Count 322 (160-400) X10*3/uL MPV 9.8 (9.4-12.3) fL Immature Gran % (Auto) 0.3 (0.0-0.4) % Neut % (Auto) 75.8 H (45-73) % Lymph % (Auto) 17.8 L (20-40) % [place] % (Auto) 5.0 (2-11) % Eos % (Auto) 0.7 (0-4) % Baso % (Auto) 0.4 (0-2) % Lymph # (Auto) 1.7 (1.2-4.9) X10*3/uL [place] # (Auto) 0.5 (0.1-1.2) X10*3/uL Eos # (Auto) 0.1 (0.0-0.4) X10*3/uL Baso # (Auto) 0.0 (0.0-0.2) X10*3/uL Abs Immat Gran (auto) 0.03 (0.00-0.03) X10*3/uL Absolute Neuts (auto) 7.4 (2.0-8.3) x10*3/uL Absolute Nucleated RBC 0.000 (0.0-0.012) X10*3/uL Nucleated RBC % (auto) 0.0 (0.0-0.2) /100WBC Sodium 144 (135-145) mmol/L Potassium 4.0 (3.3-5.1) mmol/L Chloride 109 H (96-108) mmol/L Carbon Dioxide 24 (22-29) mmol/L Anion Gap 15 (12-20) BUN 12 D (9-16) mg/dL Creatinine 0.69 (0.5-1.4) mg/dL Estim Creat Clear Calc 119.9 Estimated GFR > 60 Random Glucose 77 (60-115) mg/dL Calcium 8.9 (8.4-10.2) mg/dL TSH 5.00 H (0.32-4.0) uIU/mL Free T4 0.98 (0.71-1.85) ng/dL <Kalyan Ontiveros MD - Last Filed: 08/27/22 23:45> Discharge Plan Discharge Clinical Impression: Abscess of right thigh <Leanne Blackwood MD - Last Filed: 08/27/22 16:49> Patient Disposition: Home, Self-Care <Leanne Blackwood MD - Last Filed: 08/27/22 16:49> Instructions: Abscess Incision and Drainage (DC) <Leanne Blackwood MD - Last Filed: 08/27/22 16:49> Additional Instructions: Local care as advised Packing removal in 48 hours Antibiotic as prescribed Follow up with PCP Report to ER if worsening of the redness or pain <Leanne Blackwood MD - Last Filed: 08/27/22 16:49> Prescriptions: New cephalexin 500 mg capsule 500 mg PO QID 10 Days Qty: 40 0RF doxycycline hyclate 100 mg tablet 100 mg PO BID Qty: 20 0RF No Action amoxicillin 500 mg tablet 500 mg PO Q8H 10 Days Qty: 30 0RF acetaminophen [Tylenol] 325 mg capsule 325 mg PO QID PRN (Reason: pain) Qty: 28 0RF acetaminophen [Tylenol Extra Strength] 500 mg tablet 500 mg PO Q6H PRN (Reason: pain or fever) Qty: 20 0RF lidocaine [Lidoderm] 5 % adhesive patch,medicated 1 patch topical DAILY MDD remove after 12 hours PRN (Reason: pain) Qty: 30 0RF Rx Instructions: leave on most painful area for up to 12 hrs naproxen 500 mg tablet 500 mg PO BID PRN (Reason: pain) 10 Days Qty: 20 0RF cyclobenzaprine 5 mg tablet 5 mg PO Q8H PRN (Reason: pain (scale score 7-10)) 5 Days Qty: 14 0RF nitrofurantoin monohyd/m-cryst [Macrobid] 100 mg capsule 100 mg PO Q12H 7 Days Qty: 14 0RF Rx Instructions: must administer with a meal/food phenazopyridine [Pyridium] 100 mg tablet 100 mg PO TID PRN (Reason: pain) Qty: 6 0RF <Leanne Blackwood MD - Last Filed: 08/27/22 16:49> Stand Alone Forms: Work/School Release <Leanne Blackwood MD - Last Filed: 08/27/22 16:49>
[2022-08-27 20:02] LABS: MANUAL DIFF FLAG NO
[2022-08-27 20:03] LABS: Basophils Percent Auto 0.4 % (0-2); Eosinophils Absolute Auto 0.1 X10*3/uL (0.0-0.4); Eosinophils Percent Auto 0.7 % (0-4); Hematocrit 39.4 % (37.0-47.0); Imm Gran Abs Auto 0.03 X10*3/uL (0.00-0.03); Imm Gran Pct Auto 0.3 % (0.0-0.4); Lymphocytes Absolute Auto 1.7 X10*3/uL (1.2-4.9); Lymphocytes Percent Auto 17.8 % (20-40); Mean Corpuscular Hemoglobin 32.1 pg (27.0-33.0); Mean Corpuscular Volume 97.3 fL (80.0-98.0); Mean Platelet Volume 9.8 fL (9.4-12.3); Monocytes Absolute Auto 0.5 X10*3/uL (0.1-1.2); Neutrophils Absolute Auto 7.4 x10*3/uL (2.0-8.3); Neutrophils Percent Auto 75.8 % (45-73); Platelet Count 322 X10*3/uL (160-400); Red Blood Count 4.05 X10*6/uL (4.20-5.50); Red Cell Distribution Width 12.4 % (11.0-16.0); White Blood Count 9.8 X10*3/uL (4.8-10.8)
[2022-08-27 20:32] LABS: Anion Gap 15 (12-20); Blood Urea Nitrogen 12 mg/dL (9-16); Calcium 8.9 mg/dL (8.4-10.2); Carbon Dioxide 24 mmol/L (22-29); Chloride 109 mmol/L (96-108); Creatinine Clr Calc Pharmacy 119.9; Estimated Glomerular Filt Rate > 60; Glucose Random 77 mg/dL (60-115); Sodium 144 mmol/L (135-145)
[2022-08-27 21:01] VITALS: BP 106/61; PULSE 80; RESP 18; O2SAT 100
[2022-08-27 21:40] LABS: Free T4 (Free Thyroxine) 0.98 ng/dL (0.71-1.85)
[2022-08-27] MEDS: cephALEXin 500 MG CAPSULE PO (23:37)
[2022-08-27] MEDS: Doxycycline Monohydrate 100 MG CAPSULE PO (23:38)
[2022-08-27] MEDS: Diphth,Pertus(ACell),Tet Adult 0.5 ML SYRINGE IM (23:39)
--- NOTE | 2022-08-27 23:43 | PC.NURSE ---
non-adhesive dressing applied and wrapped, pt medicated per provider order.
== END 2022-08-27 23:49 | disposition home or self-care (01) ==
PROVIDERS: Emergency Medicine; Emergency Provider Internal Medicine
DX: L02.415 Cutaneous abscess of right lower limb (principal)
CPT/HCPCS: 10060; 36415; 80048; 84439; 84443; 85025; 87070; 87077; 87147; 87186; 87205; 90471; 90715; 99283; 99284

== ENCOUNTER 2023-01-26 09:39 | Inpatient (IN) | payer OTHER, SELFPAY ==
--- NOTE | ~2023-01-26 | MR_ITS ---
EXAMINATION: MR ABDOMEN WITHOUT CONTRAST/MRCP CLINICAL INFORMATION: Elevated LFTs. Gallstones. COMPARISON: CT scan of the abdomen and pelvis dated 01/26/2023 and 11/01/2019. Ultrasound of the abdomen dated 01/26/2023. TECHNIQUE: An MRI scan of the abdomen was performed using multiple imaging sequences and imaging planes. As per the MRCP protocol, heavily T2-weighted 3-D high-resolution MRCP sequences were obtained in the coronal plane along with thin and thick slab coronal images and coronal MIP reconstructions obtained on the technologist workstation under concurrent physician supervision. FINDINGS: LIVER: The liver is normal in size and signal. No hepatic steatosis is seen. No focal cystic or solid mass is present. GALLBLADDER/BILIARY TREE: The gallbladder is partially distended. There is mild intrahepatic and prominent extrahepatic ductal dilatation. Common hepatic duct measures 1.2 cm and the common bile duct approximately 1.2 cm and distally 0.9 cm. No obstructing stone or mass is seen. There are several gallstones seen within the gallbladder. Gallbladder wall is normal in thickness on MRI scan and no definite pericholecystic edema is seen. PANCREAS: The pancreas is normal in appearance. No ductal dilatation, mass or surrounding stranding is seen. SPLEEN: Normal size and appearance. Splenic vein patent. ADRENAL GLANDS AND KIDNEYS: Adrenal glands normal. Kidneys bilaterally symmetric in size and function. No focal mass, hydronephrosis, or perinephric stranding. BOWEL LOOPS: Grossly within normal limits. LYMPHOVASCULAR STRUCTURES: Abdominal aorta normal in caliber. No periaortic collections. Incidentally noted are 2 left renal arteries. No abdominal adenopathy or free fluid collection. BONES: Within normal limits to the extent included. MR/MR MRCP IMPRESSION: 1. Mild intrahepatic and prominent extrahepatic ductal dilatation is seen without evidence of an obstructing stone or mass. The common bile duct distention is new compared to CT scan from 11/01/2019 and etiology is not entirely certain. Consider endoscopic assessment to exclude ampullary stricture or mass. 2. Cholelithiasis with no MRI evidence of acute cholecystitis. Close clinical correlation is requested.
--- NOTE | ~2023-01-26 | US_ITS ---
EXAMINATION: US ABDOMEN LIMITED CLINICAL INFORMATION: Right upper quadrant pain. Evaluate for cholelithiasis. COMPARISON: Most recent CT abdomen/pelvis dated 11/01/2019. TECHNIQUE: Real-time imaging of the right upper quadrant abdominal viscera. FINDINGS: GALLBLADDER: The gallbladder is completely opacified with stones. There is thickening of the gallbladder wall which measures up to 0.7 cm. Trace pericholecystic free fluid. Findings can be seen in the setting of acute cholecystitis. Positive sonographic Gaxiola sign. COMMON BILE DUCT: Mildly dilated measuring up to 1.0 cm. No visualized choledocholithiasis, however, a distal ductal stone cannot be excluded. US/US abdomen limited IMPRESSION: 1. Cholelithiasis with gallbladder wall thickening, trace pericholecystic free fluid, and positive sonographic Gaxiola sign. Findings can be seen in the setting of acute cholecystitis. 2. Mildly dilated common bile duct measuring up to 1.0 cm. No visualized choledocholithiasis, however, a distal ductal stone cannot be excluded.
--- NOTE | ~2023-01-26 | CT_ITS ---
EXAMINATION: CT ABDOMEN AND PELVIS WITH CONTRAST CLINICAL INFORMATION: Upper abdominal pain. COMPARISON: CT scan of the abdomen and pelvis dated 11/01/2019. TECHNIQUE: Multidetector CT volumetric acquisition of the abdomen and pelvis was performed after the administration of 85 mL of intravenous Omnipaque 350. The data set was reformatted in the sagittal and coronal planes and reviewed on an independent workstation. This CT examination was performed using dose optimization techniques as appropriate, variously including the following: *Automated exposure control *Adjustment of mA and/or kV according to patient size (this includes techniques or standardized protocols for targeted exams where dose is matched to indication/reason for exam; i.e. extremities or head) *Use of iterative reconstruction technique DLP: 644 mGy-cm. FINDINGS: LOWER CHEST: Included lung bases unremarkable. LIVER, GALLBLADDER, BILIARY TREE: Liver normal size and attenuation. No focal cystic or solid mass. There is prominent intra-and extrahepatic ductal dilatation. Common bile duct measures 1.1 cm in maximal diameter and can be followed down to the ampullary region. No definite obstructing stone or mass is seen. There is mild mucosal enhancement of the gallbladder, which is only partially distended. Trace amount of pericholecystic fluid is noted. There is a tiny calcification in the gallbladder fundus. Findings are equivocal but raise the suspicion of subtle acute cholecystitis and close clinical correlation is requested. Hepatic and portal veins patent. PANCREAS: Normal. No ductal dilatation, mass, or surrounding stranding. SPLEEN: Normal size and appearance. Splenic vein patent. ADRENAL GLANDS AND KIDNEYS: Adrenal glands normal. Kidneys bilaterally symmetric in size and function. No focal mass, hydronephrosis, nephrolithiasis or perinephric stranding. URETERS AND BLADDER: Ureters decompressed and within normal limits. Bladder partially distended and grossly unremarkable. PELVIC ORGANS: Uterus retroverted and retroflexed. There is a small subserosal anterior uterine body fibroid GASTROINTESTINAL TRACT: Normal. Small and large bowel loops decompressed. Appendix in right lower quadrant normal. ABDOMINAL WALL: There is a tiny fat-containing umbilical hernia. LYMPHOVASCULAR STRUCTURES: Abdominal aorta normal in caliber. No periaortic collections. No abdominal or pelvic adenopathy or free fluid collection. BONES: The spinous processes at the T11 and T12 level are absent with incomplete fusion of the posterior elements of T12 noted, consistent with a variant spinal dysraphism. CT/CT abdomen pelvis w IV con IMPRESSION: 1. Prominent intra-and extrahepatic ductal dilatation is seen with the common bile duct measuring 1.1 cm in maximal diameter. No definite obstructing calcified stone or mass is seen. Consider further evaluation with ultrasound or MRCP to more fully evaluate the common bile duct. 2. There is mild mucosal enhancement of the gallbladder with trace pericholecystic fluid and a tiny calcification in the gallbladder fundus. Findings are equivocal but raise the suspicion of subtle acute cholecystitis. 3. Small uterine fibroid. 4. Tiny fat-containing umbilical hernia. 5. 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
[2023-01-26 10:00] LABS: MANUAL DIFF FLAG NO
--- NOTE | 2023-01-26 10:00 | ED_ITS ---
HPI - Abdominal Pain General Chief Complaint: Abdominal Pain Stated Complaint: Abd pain per EMS Time Seen by Provider: 01/26/23 09:52 Source: patient Mode of arrival: EMS Limitations: no limitations History of Present Illness HPI narrative: This is a 32 years old female presented to the emergency department complaining of epigastric abdominal pain nausea vomiting for about a week denies any fever chills diarrhea MD elicited complaint: abdominal pain Pertinent past history: none Onset (ago): week(s) (1) Pain Consistency: constant Location: epigastric Severity: moderate Migration to: no migration Related Data Patient : No Home Medications Medication Instructions Recorded Confirmed levothyroxine 125 mcg tablet 125 mcg PO DAILY 01/26/23 01/26/23 Allergies Allergy/AdvReac Type Severity Reaction Status Date / Time No Known Allergies Allergy Mild UNKNOWN Verified 08/03/21 15:06 Review of Systems Constitutional: Reports no additional constitutional complaints Reports system reviewed and no additional complaints, except as documented Cardiovascular: Reports no additional cardiovascular complaints [facility] Past Medical History Attestation statement: The following information was validated with the patient. [facility] Narrative: denies Medical History Hypothyroidism Social History Social History Alcohol intake: never Patient Tobacco Use Status: Never used Tobacco Smoked in Last 30 Days: No Use of substances other than those prescribed or required for medical reasons: Yes Substance Use Type: Marijuana Advance Directives: No Advance Directives Information Provided: Yes Nutrition Risks: Acute nausea or vomiting x1 week Patient : No Physical Exam ED Vital Signs: Vital Signs - 24 hr 01/26/23 10:03 Temperature 97.7 F Pulse Rate 56 Respiratory Rate 18 Blood Pressure 115/59 L Pulse Oximetry 99 Oxygen Delivery Method Room Air BMI result Body Mass Index 32.9 Const General: cooperative HENMT Head: Yes normal to inspection General nose exam: Normal external nose present Face and sinus: Yes normal facial exam Throat: Yes posterior oropharynx normal Neck Neck: Yes normal visual inspection Resp Effort & Inspection: normal respiratory effort Cardio Jugular venous distension: no JVD Rate: regular rate Rhythm: regular rhythm GI Inspection: Yes normal to inspection Palpation (GI): Soft to palpation, not firm, nontender and no guarding Auscultation: normal bowel sounds Skin General skin exam: no rashes or lesions noted and elasticity normal Course Reevaluation(s) Reevaluation #1: case was d/w GI Dr Haas and Dr Douglass surgery pt will be admitted to surgery service Time: 13:08 Medical Decision Making Medical Decision Making [facility] Narrative: Patient to presented with upper abdominal pain we get the labs ultrasound to rule of cholecystitis Differential Diagnosis Differential Diagnoses: The differential diagnosis associated with the presentation includes Cholecystitis/biliary colic/peptic ulcer disease Admission/Observation Consideration of admission/observation: Escalation of care including admission/observation considered Consult Healthcare Provider Management of the patient was discussed with: Transmission System Operator GI DR Haas and surgery Dr Douglass Lab Data [facility] Lab Attestation statement: I reviewed the patient's lab results. 01/26/23 09:57 01/26/23 09:56 Labs: Lab Results 01/26/23 01/26/23 01/26/23 Range/Units 09:56 09:57 10:09 WBC 7.3 (4.8-10.8) X10*3/uL RBC 4.41 (4.20-5.50) X10*6/uL Hgb 14.4 (12.0-16.0) g/dl Hct 43.0 (37.0-47.0) % MCV 97.5 (80.0-98.0) fL MCH 32.7 (27.0-33.0) pg MCHC 33.5 (31.0-35.0) g/dl RDW 12.5 (11.0-16.0) % Plt Count 346 (160-400) X10*3/uL MPV 10.5 (9.4-12.3) fL Immature Gran % (Auto) 0.3 (0.0-0.4) % Neut % (Auto) 73.9 H (45-73) % Lymph % (Auto) 18.4 L (20-40) % [place] % (Auto) 5.7 (2-11) % Eos % (Auto) 1.0 (0-4) % Baso % (Auto) 0.7 (0-2) % Lymph # (Auto) 1.4 (1.2-4.9) X10*3/uL [place] # (Auto) 0.4 (0.1-1.2) X10*3/uL Eos # (Auto) 0.1 (0.0-0.4) X10*3/uL Baso # (Auto) 0.1 (0.0-0.2) X10*3/uL Abs Immat Gran (auto) 0.02 (0.00-0.03) X10*3/uL Absolute Neuts (auto) 5.4 (2.0-8.3) x10*3/uL Absolute Nucleated RBC 0.000 (0.0-0.012) X10*3/uL Nucleated RBC % (auto) 0.0 (0.0-0.2) /100WBC Sodium 143 (135-145) mmol/L Potassium 3.9 (3.3-5.1) mmol/L Chloride 110 H (96-108) mmol/L Carbon Dioxide 25 (22-29) mmol/L Anion Gap 12 (12-20) BUN 11 (9-16) mg/dL Creatinine 0.73 (0.5-1.4) mg/dL Estim Creat Clear Calc 117.0 Estimated GFR > 60 Random Glucose 112 (60-115) mg/dL Calcium 9.1 (8.4-10.2) mg/dL Total Bilirubin 2.7 H (0.0-1.0) mg/dL Direct Bilirubin 1.9 H (0.0-0.5) mg/dL AST 567 H (5-31) U/L ALT 1185 H (0-31) U/L Alkaline Phosphatase 222 H (39-117) U/L Total Protein 7.0 (6.5-8.0) g/dL Albumin 4.3 (3.5-5.0) g/dL Lipase 21 (8-78) U/L Beta HCG, Quant < 2 mIU/mL Urine Color Urine Appearance Urine pH (5.0-9.0) Ur Specific [place] (1.005-1.025) Urine Protein (Neg-Trace) mg/dL Urine Glucose (UA) (Negative) mg/dL Urine Ketones (Negative) mg/dL Urine Blood (Negative) Urine Nitrite (Negative) Ur Leukocyte Esterase (Negative) Urine RBC (0-2) /HPF Urine WBC (0-5) /HPF Ur Squamous Epith Cells (0-2) /HPF Other Crystals Urine Bacteria (None Seen) Hyaline Casts (0-2) /LPF Urine Test (NEGATIVE) 01/26/23 01/26/23 Range/Units 11:07 11:07 WBC (4.8-10.8) X10*3/uL RBC (4.20-5.50) X10*6/uL Hgb (12.0-16.0) g/dl Hct (37.0-47.0) % MCV (80.0-98.0) fL MCH (27.0-33.0) pg MCHC (31.0-35.0) g/dl RDW (11.0-16.0) % Plt Count (160-400) X10*3/uL MPV (9.4-12.3) fL Immature Gran % (Auto) (0.0-0.4) % Neut % (Auto) (45-73) % Lymph % (Auto) (20-40) % [place] % (Auto) (2-11) % Eos % (Auto) (0-4) % Baso % (Auto) (0-2) % Lymph # (Auto) (1.2-4.9) X10*3/uL [place] # (Auto) (0.1-1.2) X10*3/uL Eos # (Auto) (0.0-0.4) X10*3/uL Baso # (Auto) (0.0-0.2) X10*3/uL Abs Immat Gran (auto) (0.00-0.03) X10*3/uL Absolute Neuts (auto) (2.0-8.3) x10*3/uL Absolute Nucleated RBC (0.0-0.012) X10*3/uL Nucleated RBC % (auto) (0.0-0.2) /100WBC Sodium (135-145) mmol/L Potassium (3.3-5.1) mmol/L Chloride (96-108) mmol/L Carbon Dioxide (22-29) mmol/L Anion Gap (12-20) BUN (9-16) mg/dL Creatinine (0.5-1.4) mg/dL Estim Creat Clear Calc Estimated GFR Random Glucose (60-115) mg/dL Calcium (8.4-10.2) mg/dL Total Bilirubin (0.0-1.0) mg/dL Direct Bilirubin (0.0-0.5) mg/dL AST (5-31) U/L ALT (0-31) U/L Alkaline Phosphatase (39-117) U/L Total Protein (6.5-8.0) g/dL Albumin (3.5-5.0) g/dL Lipase (8-78) U/L Beta HCG, Quant mIU/mL Urine Color Dark Yellow Urine Appearance Turbid Urine pH 5.5 (5.0-9.0) Ur Specific [place] >= 1.030 H (1.005-1.025) Urine Protein 30 (1+) H (Neg-Trace) mg/dL Urine Glucose (UA) Negative (Negative) mg/dL Urine Ketones 40 (Negative) mg/dL Urine Blood Large (3+) H (Negative) Urine Nitrite Positive H (Negative) Ur Leukocyte Esterase Small (1+) H (Negative) Urine RBC >20 H (0-2) /HPF Urine WBC 6-10 (0-5) /HPF Ur Squamous Epith Cells 0-2 (0-2) /HPF Other Crystals Present Urine Bacteria None Seen (None Seen) Hyaline Casts 0-2 (0-2) /LPF Urine Test NEGATIVE (NEGATIVE) Independent Interpretation I performed an independent interpretation of an: Ultrasound Interpretation: gallstones Radiology Impression Discussion of test interpretation with radiology: I have reviewed the radiologist's reading. Radiologist Impression: COMPARISON: Most recent CT abdomen/pelvis dated 11/01/2019. TECHNIQUE: Real-time imaging of the right upper quadrant abdominal viscera. FINDINGS: GALLBLADDER: The gallbladder is completely opacified with stones. There is thickening of the gallbladder wall which measures up to 0.7 cm. Trace pericholecystic free fluid. Findings can be seen in the setting of acute cholecystitis. Positive sonographic Gaxiola sign. COMMON BILE DUCT: Mildly dilated measuring up to 1.0 cm. No visualized choledocholithiasis, however, a distal ductal stone cannot be excluded. US/US abdomen limited IMPRESSION: 1. Cholelithiasis with gallbladder wall thickening, trace pericholecystic free fluid, and positive sonographic Gaxiola sign. Findings can be seen in the setting of acute cholecystitis. ? 2. Mildly dilated common bile duct measuring up to 1.0 cm. No visualized choledocholithiasis, however, a distal ductal stone cannot be excluded. Medications Administered Discontinued Medications Generic Name Dose Route Start Last Admin Trade Name Freq PRN Reason Stop Dose Admin Hydromorphone HCl 0.5 mg 01/26/23 10:44 01/26/23 11:01 Hydromorphone Hcl 0.5 Mg/0.5 Ml Syringe IVPUSH 01/26/23 10:45 0.5 mg ONCE ONE Administration Protocol Sodium Chloride 1,000 mls @ 999 mls/hr 01/26/23 10:00 01/26/23 10:14 Ns IVCONT 01/26/23 11:00 999 mls/hr .Q1H1M ORESTES Administration Iohexol 100 ml 01/26/23 12:40 01/26/23 12:40 Iohexol 350 Mg/Ml 100 Ml Infus..Btl IV 01/26/23 12:41 85 ml ONCE ONE Administration Ketorolac Tromethamine 30 mg 01/26/23 09:58 01/26/23 10:14 Ketorolac Tromethamine 30 Mg/Ml Vial IVPUSH 01/26/23 09:59 30 mg ONCE ONE Administration Ondansetron HCl 4 mg 01/26/23 10:53 01/26/23 11:03 Ondansetron Hcl 4 Mg/2 Ml Vial IVPUSH 01/26/23 10:54 4 mg ONCE ONE Administration Discharge Plan Discharge Clinical Impression: Cholecystitis, Elevated LFTs Patient Disposition: Admitted As Inpatient
[2023-01-26 10:03] VITALS: BP 115/59; PULSE 56; RESP 18; TEMP 36.5; O2SAT 99; BMI 32.9
[2023-01-26] MEDS: 0.9 % Sodium Chloride 1,000 ML 999 ML IVCONT (10:14)
[2023-01-26] MEDS: Ketorolac Tromethamine 30 MG/ML VIAL IVPUSH (10:14)
[2023-01-26 10:18] LABS: Alanine Aminotransferase 1185 U/L (0-31); Albumin Level 4.3 g/dL (3.5-5.0); Alkaline Phosphatase 222 U/L (39-117); Anion Gap 12 (12-20); Aspartate Amino Transferase 567 U/L (5-31); Bilirubin Direct 1.9 mg/dL (0.0-0.5); Bilirubin Total 2.7 mg/dL (0.0-1.0); Blood Urea Nitrogen 11 mg/dL (9-16); Calcium 9.1 mg/dL (8.4-10.2); Carbon Dioxide 25 mmol/L (22-29); Chloride 110 mmol/L (96-108); Estimated Glomerular Filt Rate > 60; Glucose Random 112 mg/dL (60-115); Lipase 21 U/L (8-78); Potassium 3.9 mmol/L (3.3-5.1); Sodium 143 mmol/L (135-145)
[2023-01-26 10:19] VITALS: BP 115/79; PULSE 61; O2SAT 98
[2023-01-26 10:31] LABS: Basophils Absolute Auto 0.1 X10*3/uL (0.0-0.2); Basophils Percent Auto 0.7 % (0-2); Eosinophils Absolute Auto 0.1 X10*3/uL (0.0-0.4); Hemoglobin 14.4 g/dl (12.0-16.0); Imm Gran Abs Auto 0.02 X10*3/uL (0.00-0.03); Imm Gran Pct Auto 0.3 % (0.0-0.4); Lymphocytes Absolute Auto 1.4 X10*3/uL (1.2-4.9); Lymphocytes Percent Auto 18.4 % (20-40); Mean Corpuscular HGB Conc 33.5 g/dl (31.0-35.0); Mean Corpuscular Hemoglobin 32.7 pg (27.0-33.0); Mean Corpuscular Volume 97.5 fL (80.0-98.0); Mean Platelet Volume 10.5 fL (9.4-12.3); Monocytes Absolute Auto 0.4 X10*3/uL (0.1-1.2); Monocytes Percent Auto 5.7 % (2-11); Neutrophils Absolute Auto 5.4 x10*3/uL (2.0-8.3); Neutrophils Percent Auto 73.9 % (45-73); Platelet Count 346 X10*3/uL (160-400); Red Blood Count 4.41 X10*6/uL (4.20-5.50); Red Cell Distribution Width 12.5 % (11.0-16.0); White Blood Count 7.3 X10*3/uL (4.8-10.8)
[2023-01-26 10:37] LABS: HCG Quantitative < 2 mIU/mL
--- OUTSIDE RECORDS SUMMARY | 2023-01-26 10:42 | XMS_ITS | Continuity of Care Document ---
Author Name Unknown Organization [facility] Address [address] [place] [id number]- Care Team Providers Care Data Assistant Name Role Phone Po Belinda MARY Primary Care Physician Encounter [facility] [place] Date(s): 01/29/22 - 02/28/[address] [id number] Allergies, Adverse Reactions, Alerts No Known Allergies Immunizations Given and Recorded Vaccine Date Status Refusal Reason tetanus/diphtheria/pertussis, acel(Tdap) 10/03/21 Given tetanus/diphtheria/pertussis, acel(Tdap) 09/28/20 Given Medications acetaminophen 325 mg oral tablet 650 mg, By Mouth, Every 4 hours, PRN, (1-3), may give 325mg per patient preference and re-dose [id number] within 4 hours, if needed. Patient should only receive a total of 650mg of Acetaminophen every 4 hours., Refills 0, Maintenance, Pain , Mild, 0... Start Date: 11/01/21 Status: Ordered Diflucan 150 mg oral tablet 1 tablet = 150 mg, By Mouth, Once, # 1 tablet, 0 Refills, Soft Stop, 01/23/22 18:05:00 EDT, Tablet,[id number], Partial fill upon patient request if the prescription is for a schedule II opioid drug., 163, cm, 11/01/21 8:24:00 EST, Height, 85,... Start Date: 01/23/22 Status: Ordered Docusate Sodium Capsule 100 mg, 1, capsule, By Mouth, 2 times a day, PRN, Refills 0, Maintenance, Constipation, 11/01/21 6:42:00 EST, Partial fill upon patient request if the prescription is for a schedule II opioid drug. Start Date: 11/01/21 Status: Ordered famotidine 20 mg oral tablet 1, tablet, By Mouth, 2 times a day, # 180 tablet, Refills 0, Route to Pharmacy Electronically, [id number], 163, cm, 11/01/21 8:24:00 EST, Height, 85, kg, 10/29/21 21:04:00 EST, Dry Weight Start Date: 12/15/21 Status: Ordered ibuprofen 800 mg oral tablet 800 mg, 1, tablet, By Mouth, Every 8 hours, PRN, (4-6), may give 400mg per patient preference and re-dose with 400mg within 8 hours if needed. Patient should only receive a total of 800mg of Ibuprofen every 8 hours., Refills 0, Maintenance, Pain , M... Start Date: 11/01/21 Status: Ordered levothyroxine 125 mcg (0.125 mg) oral tablet 1 tablet = 125 mcg, By Mouth, Daily, # 30 tablet, 11 Refills, Maintenance, 06/16/21 16:02:00 EDT, Tablet, [facility]/pharmacy #[id number], dose changed, 163, cm, 05/29/21 9:58:00 EDT, Height, 82.2, kg, 02/15/21 9:54:00 EDT, Dry Weight Start Date: 06/16/21 Status: Ordered medroxyPROGESTERone 150 mg/mL intramuscular suspension 1 mL = 150 mg, Intramuscular, On Discharge, 0 Refills, Maintenance, 11/01/21 6:42:00 EST, Injection, Partial fill upon patient request if the prescription is for a schedule II opioid drug. Start Date: 11/01/21 Status: Ordered Multivitamins with Folic Acid 1 mg oral capsule See Instructions, TAKE ONE DAILY BY MOUTH, # 100 capsule, 2 Refills, Maintenance, 04/07/21 10:09:00EDT, [facility]/pharmacy #[id number], Partial fill upon patient request if the prescription is for a schedule IIopioid drug., TAKE ONE DAILY BY MOUTH, 163, cm, ... 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 Pt informed of [facility] services/declined - will call if services are needed. 2Urogyn Consult in [place] 3Patient reports during telehealth OBI visit that she is not currently engaged with Endo or any provider to help manage thyroid dysfunction. TSH level labs ordered. 4Patient reports during telehealth OBI visit that she is not currently engaged with Mental health services for DXs. Pt informed of [facility] services/declined - will call if services are needed. 5?bipolar 2 disorder; no meds/therapy currently Social History Social History Type Response Smoking Status Former smoker, quit more than 30 days ago entered on: 05/16/20 Sex
--- OUTSIDE RECORDS SUMMARY | 2023-01-26 10:42 | XMS_ITS | Continuity of Care Document ---
Author Name Unknown Organization [facility] Address [address] [place] [id number]- Care Team Providers Care Safety Net Maker Name Role Phone Po Belinda MARY Primary Care Physician Encounter [facility] [place] Date(s): 01/30/22 - 03/02/[address] [address] Attending Physician: Not on Staff, Attending MD Allergies, Adverse Reactions, Alerts No Known Allergies Immunizations Given and Recorded Vaccine Date Status Refusal Reason tetanus/diphtheria/pertussis, acel(Tdap) 10/03/21 Given tetanus/diphtheria/pertussis, acel(Tdap) 09/28/20 Given Medications acetaminophen 325 mg oral tablet 650 mg, By Mouth, Every 4 hours, PRN, (1-3), may give 325mg per patient preference and re-dose [id number] within 4 hours, if needed. Patient should only receive a total of 650mg of Acetaminophen every 4 hours., Refills 0, Maintenance, Pain , Mild, 0... Start Date: 11/01/21 Status: Ordered Diflucan 150 mg oral tablet 1 tablet = 150 mg, By Mouth, Once, # 1 tablet, 0 Refills, Soft Stop, 01/23/22 18:05:00 EDT, [facility]t,[id number], Partial fill upon patient request if the [...] tablet, Refills 0, Route to Pharmacy Electronically, [facility] [id number], 163, cm, 11/01/21 8:24:00 EST, Height, 85, [...] 11 Refills, Maintenance, 06/16/21 16:02:00 EDT, Tablet, [facility]/pharmacy #[id number], dose changed, 163, cm, 05/29/21 9:58:00 [...] 100 capsule, 2 Refills, Maintenance, 04/07/21 10:09:00EDT, [facility]/pharmacy #[id number], Partial fill upon patient request if [...] health services for DXs. Pt informed of [facility] services/declined - will call if services are needed. 2Urogyn Consult in [facility] 3Patient reports during telehealth OBI visit that she is not currently engaged with Endo or any provider to help manage thyroid dysfunction. TSH level labs ordered. 4Patient reports during telehealth OBI visit that she is not currently engaged with Mental health services for DXs. Pt informed of [facility] services/declined - will call if services are needed. 5?bipolar 2 disorder; no meds/therapy currently Social History Social History Type Response Smoking Status Former smoker, quit more than 30 days ago entered on: 05/16/20 Sex
--- OUTSIDE RECORDS SUMMARY | 2023-01-26 10:42 | XMS_ITS | Continuity of Care Document ---
Author Name Unknown Organization [facility] Address [address] [place] [id number]- Care Team Providers Care Flying I Instructor Name Role Phone Milind MARY [OB], Itzel Azevedo Primary Care Physician Encounter [facility] Date(s): 11/07/20 - 12/07/[address] [address]- Allergies, Adverse Reactions, Alerts Substance Reaction Severity Status NKA Active Immunizations Given and Recorded Vaccine Date Status Refusal Reason tetanus/diphtheria/pertussis, acel(Tdap) 09/28/20 Given Medications LSO for low back pain LSO for low back pain, See Instructions, # 1 each, Refills 0, Tot. Refills 0, Maintenance, please size patient, 10/12/20 13:49:00 EST, Supply Start Date: 10/12/20 Status: Ordered Pepcid 20 mg oral tablet 1 tablet = 20 mg, By Mouth, 2 times a day, # 180 tablet, 1 Refills, Maintenance, 09/23/20 17:11:00 EST, [facility]t, [id number], Partial fill upon patient request if the prescription is for a schedule II opioid drug., 168, cm, 08/31/20 9:01:00 EST,... 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
--- OUTSIDE RECORDS SUMMARY | 2023-01-26 10:43 | XMS_ITS | Continuity of Care Document ---
Author Name Unknown Organization [facility] Address [address] [place] [id number]- Care Team Providers Care Desk Pen Set Assembler Name Role Phone Milind MARY [OB], Itzel Azevedo Primary Care Physician [place] [facility] [place]/14/20 - 12/14/[address] [address]- Allergies, Adverse Reactions, Alerts Substance Reaction Severity [...]
--- OUTSIDE RECORDS SUMMARY | 2023-01-26 10:43 | XMS_ITS | Continuity of Care Document ---
Author Name Unknown Organization [facility] Address [address] [place] [id number]- Care Team Providers Care County Coroner Name Role Phone Po Belinda MARY Primary Care Physician Encounter [facility] Date(s): 01/31/22 - 03/02/[address] [address]- Attending Physician: Sara Bloom Admitting Physician: Sara Bloom Referring Physician: AdmtrSara Allergies, Adverse Reactions, Alerts No Known Allergies Immunizations Given and Recorded Vaccine Date Status Refusal Reason tetanus/diphtheria/pertussis, acel(Tdap) 10/03/21 Given tetanus/diphtheria/pertussis, acel(Tdap) 09/28/20 Given Medications acetaminophen 325 mg oral tablet 650 mg, By Mouth, Every 4 hours, PRN, (1-3), may give 325mg per patient preference and re-dose [id number] within 4 hours, if needed. Patient should only receive a total of 650mg of Acetaminophen every 4 hours., Refills 0, Maintenance, Pain , Mild, 0... Start Date: 11/01/21 Status: Ordered Diflucan 150 mg oral tablet 1 tablet = 150 mg, By Mouth, Once, # 1 tablet, 0 Refills, Soft Stop, 01/23/22 18:05:00 EDT, Tablet,[facility]/pharmacy #[id number], Partial fill upon patient request if the [...] tablet, Refills 0, Route to [facility]acy Electronically, [id number], 163, cm, 11/01/21 8:24:00 EST, Height, 85, [...] 11 Refills, Maintenance, 06/16/21 16:02:00 EDT, Tablet, [facility]/pharmacy #[id number], dose changed, 163, cm, 05/29/21 [...] 100 capsule, 2 Refills, Maintenance, 04/07/21 10:09:00EDT, [facility]/pharmacy #[id number], Partial fill upon patient request [...] health services for DXs. Pt informed of [facility] services/declined - will call if services are needed. 2Urogyn Consult in [facility] 3Patient reports during telehealth OBI visit that she is not currently engaged with Endo or any provider to help manage thyroid dysfunction. TSH level labs ordered. 4Patient reports during telehealth OBI visit that she is not currently engaged with Mental health services for DXs. Pt informed of [facility] services/declined - will call if services are needed. 5?bipolar 2 disorder; no meds/therapy currently Social History Social History Type Response Smoking Status Former smoker, quit more than 30 days ago entered on: 05/16/20 Sex
--- OUTSIDE RECORDS SUMMARY | 2023-01-26 10:43 | XMS_ITS | Continuity of Care Document ---
Author Name Unknown Organization [facility] Address [address] [place] [address]- Care Team Providers Care Licensed Life And Health Agent Name Role Phone Po Belinda MARY Primary Care Physician Encounter [facility] Date(s): 09/26/21 - 10/26/[address] [address]- Allergies, Adverse Reactions, Alerts No Known Allergies Immunizations Given and Recorded Vaccine Date Status Refusal Reason tetanus/diphtheria/pertussis, acel(Tdap) 10/03/21 Given tetanus/diphtheria/pertussis, acel(Tdap) 09/28/20 Given Medications famotidine 20 mg oral tablet 20 mg, 1, tablet, By Mouth, 2 times a day, # 180 tablet, Refills 0, Tot. Refills 0, Maintenance, 09/25/21 14:02:00 EST, Route to Pharmacy Electronically, [facility]/pharmacy #[id number], Partial fill upon patientrequest if the prescription is for a schedule II op... Start Date: 09/25/21 Status: Ordered levothyroxine 125 mcg (0.125 mg) oral tablet 1 tablet = 125 mcg, By Mouth, Daily, # 30 tablet, 11 Refills, Maintenance, 06/16/21 16:02:00 EDT, Tablet, [facility]/pharmacy #[id number], dose changed, 163, cm, 05/29/21 9:58:00 EDT, Height, 82.2, kg, 02/15/21 9:54:00 EDT, Dry Weight Start Date: 06/16/21 Status: Ordered LSO for lower back pain LSO for lower back pain, See Instructions, # 1 each, Refills 0, Tot. Refills 0, Maintenance, pleasesize pt for LSO, 10/12/21 12:05:00 EST, Supply Start Date: 10/12/21 Status: Ordered Multivitamins with Folic Acid 1 mg oral capsule See Instructions, TAKE ONE DAILY BY MOUTH, # 100 capsule, 2 Refills, Maintenance, 04/07/21 10:09:00EDT, [facility]/pharmacy #[id number], Partial fill upon patient request if the prescription is for a schedule IIopioid drug., TAKE ONE DAILY BY MOUTH, 163, cm, .. 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 Pt informed of [facility] services/declined - will call if services are needed. 2Urogyn Consult in [place] 3Patient reports during telehealth OBI visit that she is not currently engaged with Endo or any provider to help manage thyroid dysfunction. TSH level labs ordered. 4Patient reports during telehealth OBI visit that she is not currently engaged with Mental health services for DXs. Pt informed of [facility] services/declined - will call if services are needed. 5?bipolar 2 disorder; no meds/therapy currently Social History Social History Type Response Smoking Status Former smoker, quit more than 30 days ago entered on: 05/16/20 Sex Female
--- OUTSIDE RECORDS SUMMARY | 2023-01-26 10:43 | XMS_ITS | Continuity of Care Document ---
Author Name Unknown Organization [facility] Address [address] [place] [address]- Care Team Providers Care Aerospace Project Engineer Name Role Phone Milind MARY [OB], Itzel Azevedo Primary Care Physician [facility]counter [facility] Date(s): 02/15/21 - 02/15/[address] [address] Discharge Disposition: A-D/C Home Attending Physician: Allie Griggs MD Admitting Physician: Allie Griggs MD Referring Physician: Allie Griggs MD Allergies, Adverse Reactions, Alerts Substance Reaction Severity Status NKA Active Immunizations Given and Recorded Vaccine Date Status Refusal Reason tetanus/diphtheria/pertussis, acel(Tdap) 09/28/20 Given Medications No Known Medications Problem List Condition Effective Dates Status Health Status Inform ant 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 Hypothyroid(Confirmed) Active Marijuana use(Confirmed) Active Anxiety and depression(Confirmed) 1 Active Body piercing(Confirmed) Active (Confirmed) Active 1?bipolar 2 disorder; no meds/therapy currently Vital Signs Most recent to oldest [Reference Range]: 1 Height 163 cm (02/15/21 10:26 AM) Weight 82.2 kg (02/15/21 9:54 AM) Oxygen Saturation [94-100 %] 100 % (02/15/21 9:54 AM) Pulse Rate [55-90 bpm] 100 bpm *H* (02/15/21 9:54 AM) Blood Pressure [90-138/55-84 mm Hg] 114/ 75mm Hg (02/15/21 9:54 AM) Respiratory Rate [16-30 br/min] 16 br/mi n (02/15/21 9:54 AM) Temperature [96.8-100.4 DegF] 98.5 DegF (02/15/21 9:54 AM) Mode of Delivery (Oxygen) Room air (02/15/21 9:54 AM) Blood pressure sites Arm, right 1 (02/15/21 9:54 AM) Temperature Route Oral (02/15/21 9:54 AM) Dry Weight 82.2 kg (02/15/21 9:54 AM) Weight Obtained Via Standing scale (02/15/21 9:54 AM) Dry Weight Obtained Via Standing scale (02/15/21 9:54 AM) 1Result Comment: Right arm measured at 37cm Social History Social History Type Response Smoking Status Former smoker, quit more than 30 days ago entered on: 05/16/20 Sex
--- OUTSIDE RECORDS SUMMARY | 2023-01-26 10:43 | XMS_ITS | Continuity of Care Document ---
Author Name Unknown Organization [facility] Address [address] [place] [address]- Care Team Providers Care Naturalization Examiner Name Role Phone Po Belinda MARY Primary Care Physician [place] [facility] Date(s): 06/28/22 - 09/05/[address] [address] Attending Physician: Not on Staff, Attending MD Allergies, Adverse Reactions, Alerts No Known Allergies Immunizations Given and Recorded Vaccine Date Status Refusal Reason tetanus/diphtheria/pertussis, acel(Tdap) 10/03/21 Given tetanus/diphtheria/pertussis, acel(Tdap) 09/28/20 Given Medications acetaminophen 325 mg oral tablet 650 mg, By Mouth, Every 4 hours, PRN, (1-3), may give 325mg per patient preference and re-dose [id number] within 4 hours, if needed. Patient should only receive a total of 650mg of Acetaminophen every 4 hours., Refills 0, Maintenance, Pain , Mild, 0... Start Date: 11/01/21 Status: Ordered Diflucan 150 mg oral tablet 1 tablet = 150 mg, By Mouth, Once, # 1 tablet, 0 Refills, Soft Stop, 01/23/22 18:05:00 EDT, Tablet,[id number], Partial fill upon patient request if the [...] tablet, Refills 0, Route to Pharmacy Electronically, [id number], 163, cm, 11/01/21 8:24:00 EST, Height, 85, [...] 125 mcg (0.125 mg) oral tablet 1 tablet, By Mouth, Daily, # 30 tablet, 3 Refills, Maintenance, 06/28/22 15:13:00 EDT, [id number], 163, cm, 04/17/22 12:28:00 EDT, Height, 85, kg, 10/29/21 21:04:00 EST, Dry Weight Start Date: 06/28/22 Status: Ordered medroxyPROGESTERone 150 mg/mL intramuscular suspension [...] 100 capsule, 2 Refills, Maintenance, 04/07/21 10:09:00EDT, [facility]/pharmacy #[id number], Partial fill upon patient request if the prescription is for a schedule IIopioid drug., TAKE ONE DAILY BY MOUTH, 163, cm, ... 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 Pt informed of [facility] services/declined - will call if services are needed. 2Urogyn Consult in [facility] 3Patient reports during telehealth OBI visit that she is not currently engaged with Endo or any provider to help manage thyroid dysfunction. TSH level labs ordered. 4Patient reports during telehealth OBI visit that she is not currently engaged with Mental health services for DXs. Pt informed of [facility] services/declined - will call if services are needed. 5?bipolar 2 disorder; no meds/therapy currently Social History Social History Type Response Smoking Status Former smoker, quit more than 30 days ago entered on: 05/16/20 Sex Patient Care team information Care Team Personnel Name: Belinda Helm MD Position: Reference Physician Member Role: PCP Address: Address: [address] [place] [address] - Care Team Related Persons Name: ALICE CHAUDHRY Address: [place], [place] Name: ALEXEY LOVE Address: [address] Address: home [address] [place], [place] Name: FRACISCO LOVE Address: home [address] [place], [place] Name: TERESSA LOVE Address: [address] Address: home [address] [place], [place] Name: ARGELIA SOUSA Address: [address]
--- OUTSIDE RECORDS SUMMARY | 2023-01-26 10:43 | XMS_ITS | Continuity of Care Document ---
Author Name Unknown Organization [facility] Address [address] [place] [address]- Care Team Providers Care Pool Finisher Name Role Phone Po Belinda MARY Primary Care Physician [phone] Encounter [facility] [place] Date(s): 10/16/21 - 11/15/21 [facility] [address] [place] [address] Allergies, Adverse Reactions, Alerts No Known Allergies Immunizations Given and Recorded Vaccine Date Status Refusal Reason tetanus/diphtheria/pertussis, acel(Tdap) 10/03/21 Given tetanus/diphtheria/pertussis, acel(Tdap) 09/28/20 Given Medications acetaminophen 325 mg oral tablet 650 mg, By Mouth, Every 4 hours, PRN, (1-3), may give 325mg per patient preference and re-dose [id number] within 4 hours, if needed. Patient should only receive a total of 650mg of Acetaminophen every 4 hours., Refills 0, Maintenance, Pain , Mild, 0... Start Date: 11/01/21 Status: Ordered Docusate Sodium Capsule 100 mg, 1, capsule, By Mouth, 2 times a day, PRN, Refills 0, Maintenance, Constipation, 11/01/21 6:42:00 EST, Partial fill upon patient request if the prescription is for a schedule II opioid drug. Start Date: 11/01/21 Status: Ordered ibuprofen 800 mg oral tablet [...] 11 Refills, Maintenance, 06/16/21 16:02:00 EDT, Tablet, [id number], dose changed, 163, cm, 05/29/21 9:58:00 [...] 2 Refills, Maintenance, 04/07/21 10:09:00EDT, [facility]/pharmacy #[id number], Partial fill upon patient request if [...] health services for DXs. Pt informed of [facility] services/declined - will call if services are needed. 5?bipolar 2 disorder; no meds/therapy currently Social History Social History Type Response Smoking Status Former smoker, quit more than 30 days ago entered on: 05/16/20 Sex
--- OUTSIDE RECORDS SUMMARY | 2023-01-26 10:43 | XMS_ITS | Continuity of Care Document ---
Author Name Unknown Organization [facility] Address [address] [place] [address]- Care Team Providers Care Environmental Issues Instructor Name Role Phone Luis Fernando MARY, Mina Primary Care Physician Encounter [facility] Date(s): 06/01/20 - 07/01/20 [facility] [address] [address]- [facility] Allergies, Adverse Reactions, Alerts Substance Reaction Severity Status NKA Active Medications Multivitamins with Folic Acid 1 mg oral [...] use(Confirmed) Active Anxiety and depression(Confirmed) 1 Active (Confirmed) Active 1?bipolar 2 disorder; no meds/therapy currently Social History Social History Type Response Smoking Status Former smoker, quit more than 30 days ago entered on: 05/16/20 Sex
--- OUTSIDE RECORDS SUMMARY | 2023-01-26 10:43 | XMS_ITS | Continuity of Care Document ---
Author Name Unknown Organization [facility] Address [address] [place] [address]- Care Team Providers Care Cloth Brushing And Sueding Supervisor Name Role Phone Po Belinda MARY Primary Care Physician [phone] Encounter [facility] Date(s): 09/27/21 - 10/27/[address] [address] Allergies, Adverse Reactions, Alerts No Known Allergies Immunizations Given and Recorded Vaccine Date Status Refusal Reason tetanus/diphtheria/pertussis, acel(Tdap) 10/03/21 Given tetanus/diphtheria/pertussis, acel(Tdap) 09/28/20 Given Medications famotidine 20 mg oral tablet 20 mg, 1, tablet, By Mouth, 2 times a day, # 180 tablet, Refills 0, Tot. Refills 0, Maintenance, 09/25/21 14:02:00 EST, Route to Pharmacy Electronically, [facility]/pharmacy #[id number], Partial fill upon patientrequest if the prescription is for a schedule II op... Start Date: 09/25/21 Status: Ordered levothyroxine 125 mcg (0.125 mg) oral tablet 1 tablet = 125 mcg, By Mouth, Daily, # 30 tablet, 11 Refills, Maintenance, 06/16/21 16:02:00 EDT, Tablet, [facility]/pharmacy #[id number], dose changed, 163, cm, 05/29/21 9:58:00 EDT, Height, 82.2, kg, 02/15/21 9:54:00 EDT, Dry Weight Start Date: 06/16/21 Status: Ordered LSO for lower back pain LSO for lower back pain, See Instructions, # 1 each, Refills 0, Tot. Refills 0, Maintenance, pleasesize pt for LSO, 12/30/21 12:05:00 EST, Supply Start Date: 10/12/21 Status: Ordered Multivitamins with Folic Acid 1 mg oral capsule See Instructions, TAKE ONE DAILY BY MOUTH, # 100 capsule, 2 Refills, Maintenance, 04/07/21 10:09:00EDT, [facility]/pharmacy #[id number], Partial fill upon patient request if the [...] health services for DXs. Pt informed of [facility] services/declined - will call if services are needed. 2Urogyn Consult in [facility] 3Patient reports during telehealth OBI visit that she is not currently engaged with [facility] or any provider to help manage thyroid dysfunction. TSH level labs ordered. 4Patient reports during telehealth OBI visit that she is not currently engaged with Mental health services for DXs. Pt informed of [facility] services/declined - will call if services are needed. 5?bipolar 2 disorder; no meds/therapy currently Social History Social History Type Response Smoking Status Former smoker, quit more than 30 days ago entered on: 05/16/20 Sex Female
--- OUTSIDE RECORDS SUMMARY | 2023-01-26 10:43 | XMS_ITS | Continuity of Care Document ---
Author Name Unknown Organization [facility] Address [address] [place] [address]- Care Team Providers Care Health Center Assistant Name Role Phone Po Belinda MARY Primary Care Physician Encounter [facility] Date(s): 08/06/22 - 09/05/[address] [address]- Attending Physician: Sara Bloom Admitting Physician: Sara Bloom Referring Physician: AdmtrSara Allergies, Adverse Reactions, Alerts No Known Allergies Immunizations Given and Recorded Vaccine Date Status Refusal Reason tetanus/diphtheria/pertussis, acel(Tdap) 10/03/21 Given tetanus/diphtheria/pertussis, acel(Tdap) 09/28/20 Given Medications acetaminophen 325 mg oral tablet 650 mg, By Mouth, Every 4 hours, PRN, (1-3), may give 325mg per patient preference and re-dose [id number] within 4 hours, if needed. Patient should only receive a total of 650mg of Acetaminophen every 4 hours., Refills 0, Maintenance, Pain , Mild, 0... Start Date: 11/01/21 Status: Ordered Diflucan 150 mg oral tablet 1 tablet = 150 mg, By Mouth, Once, # 1 tablet, 0 Refills, Soft Stop, 01/23/22 18:05:00 EDT, Tablet,[facility]/pharmacy #[id number], Partial fill upon patient request if the [...] tablet, Refills 0, Route to Pharmacy Electronically, [facility] [id number], 163, cm, 11/01/21 8:24:00 EST, Height, 85, [...] tablet, 3 Refills, Maintenance, 06/28/22 15:13:00 EDT, [facility] 82327, 163, cm, 04/17/22 12:28:00 EDT, Height, 85, [...] capsule, 2 Refills, Maintenance, 04/07/21 10:09:00EDT, [facility]/pharmacy #[id number], Partial fill upon patient request if [...] Reference Physician Member Role: PCP Address: Address: [address] [place] [address] - Care Team Related Persons Name: ALICE CHAUDHRY Address: [place], [place] Name: ALEXEY LOVE Address: [address] Address: home [address] [place], [place] Name: FRACISCO LOVE Address: [address] [place], [place] Name: TERESSA LOVE Address: [address] Address: [address] [place], [place] Name: ARGELIA SOUSA Address: [address]
--- OUTSIDE RECORDS SUMMARY | 2023-01-26 10:43 | XMS_ITS | Continuity of Care Document ---
Author Name Unknown Organization [facility] Address [address] [place] [address]- Care Team Providers Care Grades 1 Thru 5 Teacher Name Role Phone Belinda Helm MD Primary Care Physician [place] [facility] Date(s): 04/04/22 - 05/09/[address] [address]- Attending Physician: Not on Staff, Attending MD Referring Physician: Belinda Helm MD Allergies, Adverse Reactions, Alerts No Known Allergies Immunizations Given and Recorded Vaccine Date Status Refusal Reason tetanus/diphtheria/pertussis, acel(Tdap) 10/03/21 Given tetanus/diphtheria/pertussis, acel(Tdap) 09/28/20 Given Medications acetaminophen 325 mg oral tablet 650 mg, By Mouth, Every 4 hours, PRN, (1-3), may give 325mg per patient preference and re-dose [id number] within 4 hours, if needed. Patient should only receive a total of 650mg of Acetaminophen every 4 hours., Refills 0, Maintenance, Pain , Mild, 0... Start Date: 11/01/21 Status: Ordered Diflucan 150 mg oral tablet 1 tablet = 150 mg, By Mouth, Once, # 1 tablet, 0 Refills, Soft Stop, 01/23/22 18:05:00 EDT, [facility]t,[id number], Partial fill upon patient request if the [...] tablet, Refills 0, Route to Pharmacy Electronically, [facility] [id number], 163, cm, 11/01/21 8:24:00 EST, Height, 85, [...] 11 Refills, Maintenance, 06/16/21 16:02:00 EDT, Tablet, [facility]/pharmacy #[id number], dose changed, 163, cm, [...] 100 capsule, 2 Refills, Maintenance, 04/07/21 10:09:00EDT, [facility]/pharmacy #[id number], Partial fill upon patient request [...] health services for DXs. Pt informed of [facility] services/declined - will call if services are needed. 2Urogyn Consult in [facility] 3Patient reports during telehealth OBI visit that she is not currently engaged with Endo or any provider to help manage thyroid dysfunction. TSH level labs ordered. 4Patient reports during telehealth OBI visit that she is not currently engaged with Mental health services for DXs. Pt informed of [facility] services/declined - will call if services are needed. 5?bipolar 2 disorder; no meds/therapy currently Social History Social History Type Response Smoking Status Former smoker, quit more than 30 days ago entered on: 05/16/20 Sex
--- OUTSIDE RECORDS SUMMARY | 2023-01-26 10:43 | XMS_ITS | Continuity of Care Document ---
Author Name Unknown Organization [facility] Address [address] [place] [address]- Care Team Providers Care Coil Wrapper Name Role Phone Po Belinda MARY Primary Care Physician [place] [facility]/22/[place] - 10/22/[address] [address]- Allergies, Adverse Reactions, Alerts Substance Reaction Severity Status NKA Active Immunizations Given and Recorded Vaccine Date Status Refusal Reason tetanus/diphtheria/pertussis, acel(Tdap) 10/03/21 Given tetanus/diphtheria/pertussis, acel(Tdap) 09/28/20 Given Medications famotidine 20 mg oral tablet 20 mg, 1, tablet, By Mouth, 2 times a day, # 180 tablet, Refills 0, Tot. Refills 0, Maintenance, 09/25/21 14:02:00 EST, Route to Pharmacy Electronically, [facility]/pharmacy #[id number], Partial fill upon patientrequest if the prescription is for a schedule II op... Start Date: 09/25/21 Status: Ordered levothyroxine 125 mcg (0.125 mg) oral tablet 1 tablet = 125 mcg, By Mouth, Daily, # 30 tablet, 11 Refills, Maintenance, 06/16/21 16:02:00 EDT, Tablet, [facility]/pharmacy #[id number], dose changed, 163, cm, 05/29/21 9:58:00 [...] 100 capsule, 2 Refills, Maintenance, 04/07/21 10:09:00EDT, [facility]/pharmacy #[id number], Partial fill upon patient request if the [...] health services for DXs. Pt informed of [facility] services/declined - will call if services are needed. 2Urogyn Consult in [facility] 3Patient reports during telehealth OBI visit that she is not currently engaged with Endo or any provider to help manage thyroid dysfunction. TSH level labs ordered. 4Patient reports during telehealth OBI visit that she is not currently engaged with Mental health services for DXs. Pt informed of [facility] services/declined - will call if services are needed. 5?bipolar 2 disorder; no meds/therapy currently Social History Social History Type Response Smoking Status Former smoker, quit more than 30 days ago entered on: 05/16/20 Sex Female
--- OUTSIDE RECORDS SUMMARY | 2023-01-26 10:43 | XMS_ITS | Continuity of Care Document ---
Author Name Unknown Organization [facility] Address [address] [place] [address]- Care Team Providers Care Nuclear Weapons Mechanical Specialist Name Role Phone Milind MARY [OB], Itzel Azevedo Primary Care Physician [place] [facility] 12/01/20 - 12/31/20 [facility] [address] [address]- Allergies, Adverse Reactions, Alerts Substance Reaction Severity Status NKA Active Immunizations Given and Recorded Vaccine Date Status Refusal Reason tetanus/diphtheria/pertussis, acel(Tdap) 09/28/20 Given Problem List Condition Effective Dates Status Health [...]
--- OUTSIDE RECORDS SUMMARY | 2023-01-26 10:43 | XMS_ITS | Continuity of Care Document ---
Author Name Unknown Organization [facility] Address [address] [place] [address]- Care Team Providers Care Head Of Stock Name Role Phone Milind MARY [OB], Itzel Azevedo Primary Care Physician ( [phone] [facility] [place] Date(s): 01/23/21 - 02/22/21 [facility] [address] [address] Allergies, Adverse Reactions, Alerts Substance Reaction Severity [...]
--- OUTSIDE RECORDS SUMMARY | 2023-01-26 10:43 | XMS_ITS | Continuity of Care Document ---
Author Name Unknown Organization [facility] Address [address] [place] [address]- Care Team Providers Care Functional Manager Name Role Phone Po Belinda MARY Primary Care Physician [phone] Encounter [facility] [place] Date(s): 03/15/22 - 04/14/[address] [address]- Allergies, Adverse Reactions, Alerts No Known Allergies Immunizations Given and Recorded Vaccine Date Status Refusal Reason tetanus/diphtheria/pertussis, acel(Tdap) 10/03/21 Given tetanus/diphtheria/pertussis, acel(Tdap) 09/28/20 Given Medications acetaminophen 325 mg oral tablet 650 mg, By Mouth, Every 4 hours, PRN, (1-3), may give 325mg per patient preference and re-dose [id number] within 4 hours, if needed. Patient should only receive a total of 650mg of Acetaminophen every 4 hours., Refills 0, Maintenance, Pain , Mild, 0... Start Date: 11/01/21 Status: Ordered Diflucan 150 mg oral tablet 1 tablet = 150 mg, By Mouth, Once, # 1 tablet, 0 Refills, Soft Stop, 01/23/22 18:05:00 EDT, Tablet,[id number], Partial fill upon patient request if the [...] tablet, Refills 0, Route to Pharmacy Electronically, [id number], 163, cm, 11/01/21 8:24:00 EST, Height, 85, [...] 11 Refills, Maintenance, 06/16/21 16:02:00 EDT, Tablet, [facility]/pharmacy #[id number], dose changed, 163, cm, 05/29/21 9:58:00 [...] 100 capsule, 2 Refills, Maintenance, 04/07/21 10:09:00EDT, [facility]/pharmacy #[id number], Partial fill upon patient request [...] health services for DXs. Pt informed of [facility] services/declined - will call if services are needed. 5?bipolar 2 disorder; no meds/therapy currently Social History Social History Type Response Smoking Status Former smoker, quit more than 30 days ago entered on: 05/16/20 Sex
--- OUTSIDE RECORDS SUMMARY | 2023-01-26 10:43 | XMS_ITS | Continuity of Care Document ---
Author Name Unknown Organization [facility] Address [address] [place] [address]- Care Team Providers Care Server Assistant Name Role Phone Po Belinda MARY Primary Care Physician [phone] Encounter [facility] [place] Date(s): 10/03/21 - 10/03/[address] [address] Discharge Disposition: A-D/C Home Attending Physician: Milind MARY [OB], Itzel Azevedo Admitting Physician: Milind MARY [OB], Itzel Azevedo Referring Physician: Milind MARY [OB], Itzel Azevedo Allergies, Adverse Reactions, Alerts Substance Reaction Severity Status NKA Active Immunizations Given and Recorded Vaccine Date Status Refusal Reason tetanus/diphtheria/pertussis, acel(Tdap) 10/03/21 Given tetanus/diphtheria/pertussis, acel(Tdap) 09/28/20 Given Medications famotidine 20 mg oral tablet 20 mg, 1, tablet, By Mouth, 2 times a day, # 180 tablet, Refills 0, Tot. Refills 0, Maintenance, 09/25/21 14:02:00 EST, Route to Pharmacy Electronically, [facility]/pharmacy #[id number], Partial fill upon patientrequest if the prescription is for a schedule II op... Start Date: 09/25/21 Status: Ordered levothyroxine 125 mcg (0.125 mg) oral tablet 1 tablet = 125 mcg, By Mouth, Daily, # 30 tablet, 11 Refills, Maintenance, 06/16/21 16:02:00 EDT, Tablet, [facility]/pharmacy #[id number], dose changed, 163, cm, 05/29/21 9:58:00 EDT, Height, 82.2, kg, 02/15/21 9:54:00 EDT, Dry Weight Start Date: 06/16/21 Status: Ordered Multivitamins with Folic Acid 1 mg oral capsule See Instructions, TAKE ONE DAILY BY MOUTH, # 100 capsule, 2 Refills, Maintenance, 04/07/21 10:09:00EDT, [facility]/pharmacy #[id number], Partial fill upon patient request if the prescription is for a schedule IIopioid drug., TAKE ONE DAILY BY MOUTH, 163, cm, ... 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 Pt informed of [facility] services/declined - will call if services are needed. 2Urogyn Consult in CIS 3Patient reports during telehealth OBI visit that she is not currently engaged with Endo or any provider to help manage thyroid dysfunction. TSH level labs ordered. 4Patient reports during telehealth OBI visit that she is not currently engaged with Mental health services for DXs. Pt informed of [facility] services/declined - will call if services are needed. 5?bipolar 2 disorder; no meds/therapy currently Vital Signs Most recent to oldest [Reference Range]: 1 Blood Pressure [90-138/55-84 mm Hg] 101/ 62mm Hg (10/03/21 11:59 AM) Respiratory Rate [16-30 br/min] 20 br/mi n (10/03/21 11:59 AM) Temperature [96.8-100.4 DegF] 98.5 DegF (10/03/21 11:59 AM) Temperature Route Oral (10/03/21 11:59 AM) Social History Social History Type Response Smoking Status Former smoker, quit more than 30 days ago entered on: 05/16/20 Sex Female
--- OUTSIDE RECORDS SUMMARY | 2023-01-26 10:43 | XMS_ITS | Continuity of Care Document ---
Author Name Unknown Organization [facility] ter Address [address] [place] [address]- Care Team Providers Care Car Changer Name Role Phone Po Belinda MARY Primary Care Physician Encounter [facility] [place] Date(s): 09/22/21 - 09/22/[address] [address] Discharge Disposition: A-D/C Home Attending Physician: Rani Parker MD Admitting Physician: Rani Parker MD Referring Physician: Rani Parker MD Allergies, Adverse Reactions, Alerts Substance Reaction Severity Status NKA Active Immunizations Given and Recorded Vaccine Date Status Refusal Reason tetanus/diphtheria/pertussis, acel(Tdap) 09/28/20 Given Medications Flagyl 500 mg oral tablet 1 tablet = 500 mg, By Mouth, Every 12 hours, for 7 days, # 14 tablet, 0 Refills, Acute 09/29/21 16:11:00 EST, 09/22/21 16:11:00 EST, [facility]t, [id number], Partial fill upon patient request if the prescription is for a schedule II opioid drug., 1... Start Date: 09/22/21 Stop Date: 09/29/21 Status: Ordered levothyroxine 125 mcg (0.125 mg) [...] 100 capsule, 2 Refills, Maintenance, 04/07/21 10:09:00EDT, [facility]/pharmacy #[id number], Partial fill upon patient request if [...] services for DXs. Pt informed of [facility] services/declined - will call if services are needed. 2Urogyn Consult in CIS 3Patient reports during telehealth OBI visit that she is not currently engaged with Endo or any provider to help manage thyroid dysfunction. TSH level labs ordered. 4Patient reports during telehealth OBI visit that she is not currently engaged with Mental health services for DXs. Pt informed of [facility] services/declined - will call if services are needed. 5?bipolar 2 disorder; no meds/therapy currently Vital Signs Most recent to oldest [Reference Range]: 1 Height 163 cm (09/22/21 12:40 PM) Weight 83.8 kg (09/22/21 12:22 PM) Oxygen Saturation [94-100 %] 99 % (09/22/21 12:40 PM) Pulse Rate [55-90 bpm] 87 bpm (09/22/21 12:40 PM) Blood Pressure [90-138/55-84 mm Hg] 102/ 66mm Hg (09/22/21 12:40 PM) Respiratory Rate [16-30 br/min] 20 br/mi n (09/22/21 12:40 PM) Temperature [96.8-100.4 DegF] 98.5 DegF (09/22/21 12:22 PM) Temperature Route Oral (09/22/21 12:22 PM) Dry Weight 83.8 kg (09/22/21 12:22 PM) Social History Social History Type Response Smoking Status Former smoker, quit more than 30 days ago entered on: 05/16/20 Sex Female
--- OUTSIDE RECORDS SUMMARY | 2023-01-26 10:43 | XMS_ITS | Continuity of Care Document ---
Author Name Unknown Organization [facility] Address [address] [place] [address]- Care Team Providers Care Clerk Cashier Name Role Phone Milind MARY [OB], Itzel Azevedo Primary Care Physician En[place] [facility] [place] Date(s): 01/23/21 - 02/24/21 [facility] [address] [address]- Attending Physician: Abril Britton CNM Admitting Physician: Abril Britton CNM Allergies, Adverse Reactions, Alerts Substance Reaction Severity [...]
--- OUTSIDE RECORDS SUMMARY | 2023-01-26 10:43 | XMS_ITS | Continuity of Care Document ---
Author Name Unknown Organization [facility] Address [address] [place] [address]- Care Team Providers Care Gateman Name Role Phone Mina Gould MD Primary Care Physician Encounter [facility] [place] Date(s): 11/23/19 - 12/03/19 [facility] [address] [address]- [facility] Attending Physician: Sara Bloom Admitting Physician: Sara Bloom Referring Physician: AdmtrSara Allergies, Adverse Reactions, Alerts Substance Reaction Severity Status NKA Active Medications levothyroxine 0.075 mg oral tablet 1 tablet, By Mouth, Daily, # 30 tablet, 6 Refills, Maintenance, 12/28/16 15:57:49 Start Date: 12/28/16 Stop Date: 07/26/17 Status: Ordered Multivitamins By Mouth, Daily, 0 Refills, Maintenance, 10/18/19 17:58:00 EST Start Date: 10/18/19 Status: Ordered Social History Social History Type Response Tobacco Use: 4 or less cigar ettes(less than 1/4 pack)/day in last 30 days. Sex
--- OUTSIDE RECORDS SUMMARY | 2023-01-26 10:43 | XMS_ITS | Continuity of Care Document ---
Author Name Unknown Organization [facility] Address [address] [place] [address]- Care Team Providers Care Linux System Admin Name Role Phone Po Belinda MARY Primary Care Physician [phone] Encounter [facility] [place] Date(s): 10/09/21 - 11/08/[address] [address] Allergies, Adverse Reactions, Alerts No Known Allergies Immunizations Given and Recorded Vaccine Date Status Refusal Reason tetanus/diphtheria/pertussis, acel(Tdap) 10/03/21 Given tetanus/diphtheria/pertussis, acel(Tdap) 09/28/20 Given Medications acetaminophen 325 mg oral tablet 650 mg, By Mouth, Every 4 hours, PRN, (1-3), may give 325mg per patient preference and re-dose [id number] within 4 hours, if needed. Patient should [...] 100 capsule, 2 Refills, Maintenance, 04/07/21 10:09:00EDT, [id number], Partial fill upon patient request [...] that she is not currently engaged with [facility] or any provider to help manage thyroid dysfunction. TSH level labs ordered. 4Patient reports during telehealth OBI visit that she is not currently engaged with Mental health services for DXs. Pt informed of [facility] services/declined - will call if services are needed. 5?bipolar 2 disorder; no meds/therapy currently Social History Social History Type Response Smoking Status Former smoker, quit more than 30 days ago entered on: 05/16/20 Sex
--- OUTSIDE RECORDS SUMMARY | 2023-01-26 10:43 | XMS_ITS | Continuity of Care Document ---
Author Name Unknown Organization [facility] Address [address] [place] [address]- Care Team Providers Care Flask Carrier Name Role Phone Po Belinda MARY Primary Care Physician Encounter [facility] [place] Date(s): 10/24/21 - 11/23/[address] [address] Allergies, Adverse Reactions, Alerts No Known Allergies Immunizations Given and Recorded Vaccine Date Status Refusal Reason tetanus/diphtheria/pertussis, acel(Tdap) 10/03/21 Given tetanus/diphtheria/pertussis, acel(Tdap) 09/28/20 Given Medications acetaminophen 325 mg oral tablet 650 mg, By Mouth, Every 4 hours, PRN, (1-3), may give 325mg per patient preference and re-dose [id number] within 4 hours, if needed. Patient should [...] health services for DXs. Pt informed of [facility] services/declined - will call if services are needed. 5?bipolar 2 disorder; no meds/therapy currently Social History Social History Type Response Smoking Status Former smoker, quit more than 30 days ago entered on: 05/16/20 Sex
--- OUTSIDE RECORDS SUMMARY | 2023-01-26 10:44 | XMS_ITS | Continuity of Care Document ---
Author Name Unknown Organization [facility] Address [address] [place] [address]- Care Team Providers Care Hazardous Materials Tanker Driver Name Role Phone Po Belinda MARY Primary Care Physician [phone] Encounter [facility] [place] Date(s): 09/21/21 - 10/21/21 [facility] [address] [place] [address]- Allergies, Adverse Reactions, Alerts Substance Reaction Severity Status NKA Active Immunizations Given and Recorded Vaccine Date Status Refusal Reason tetanus/diphtheria/pertussis, acel(Tdap) 10/03/21 Given tetanus/diphtheria/pertussis, acel(Tdap) 09/28/20 Given Medications famotidine 20 mg oral tablet 20 mg, 1, tablet, By Mouth, 2 times a day, # 180 tablet, Refills 0, Tot. Refills 0, Maintenance, 09/25/21 14:02:00 EST, Route to Pharmacy Electronically, [facility]/pharmacy #[id number], Partial fill upon patientrequest if the prescription is for a schedule II op... Start Date: 09/25/21 Status: Ordered levothyroxine 125 mcg (0.125 mg) oral tablet 1 tablet = 125 mcg, By Mouth, Daily, # 30 tablet, 11 Refills, Maintenance, 06/16/21 16:02:00 EDT, Tablet, [facility]/pharmacy #[id number], dose changed, 163, cm, 05/29/21 [...] 100 capsule, 2 Refills, Maintenance, 04/07/21 10:09:00EDT, [facility]/pharmacy #[id number], Partial fill upon patient request if the [...] health services for DXs. Pt informed of [facility] services/declined - will call if services are needed. 2Urogyn Consult in CIS 3Patient reports during telehealth OBI visit that she is not currently engaged with Endo or any provider to help manage thyroid dysfunction. TSH level labs ordered. 4Patient reports during telehealth OBI visit that she is not currently engaged with Mental health services for DXs. Pt informed of [facility] services/declined - will call if services are needed. 5?bipolar 2 disorder; no meds/therapy currently Social History Social History Type Response Smoking Status Former smoker, quit more than 30 days ago entered on: 05/16/20 Sex Female
--- OUTSIDE RECORDS SUMMARY | 2023-01-26 10:44 | XMS_ITS | Continuity of Care Document ---
Author Name Unknown Organization [facility] Address [address] [place] [address]- Care Team Providers Care Inner Tube Tuber Machine Operator Name Role Phone Po Belinda MARY Primary Care Physician [phone] Encounter [facility] Date(s): 09/27/21 - 10/27/21 [facility] [address] [place] [address] Attending Physician: Sara Bloom Admitting Physician: Admtr, Ar8 Referring Physician: Admtr, Ar8 Allergies, Adverse Reactions, Alerts No Known Allergies Immunizations Given and Recorded Vaccine Date Status Refusal Reason tetanus/diphtheria/pertussis, acel(Tdap) 10/03/21 Given tetanus/diphtheria/pertussis, acel(Tdap) 09/28/20 Given Medications famotidine 20 mg oral tablet 20 mg, 1, tablet, By Mouth, 2 times a day, # 180 tablet, Refills 0, Tot. Refills 0, Maintenance, 09/25/21 14:02:00 EST, Route to Pharmacy Electronically, [facility]/pharmacy #[id number], Partial fill upon patientrequest if the prescription is for a schedule II op... Start Date: 09/25/21 Status: Ordered levothyroxine 125 mcg (0.125 mg) oral tablet 1 tablet = 125 mcg, By Mouth, Daily, # 30 tablet, 11 Refills, Maintenance, 06/16/21 16:02:00 EDT, Tablet, [facility]/pharmacy #[id number], dose changed, 163, cm, 05/29/21 9:58:00 [...] 100 capsule, 2 Refills, Maintenance, 04/07/21 10:09:00EDT, [facility]/pharmacy #[id number], Partial fill upon patient request if [...] health services for DXs. Pt informed of [facility] services/declined - will call if services are needed. 2Urogyn Consult in CIS 3Patient reports during telehealth OBI visit that she is not currently engaged with Endo or any provider to help manage thyroid dysfunction. TSH level labs ordered. 4Patient reports during telehealth OBI visit that she is not currently engaged with Mental health services for DXs. Pt informed of [facility] services/declined - will call if services are needed. 5?bipolar 2 disorder; no meds/therapy currently Social History Social History Type Response Smoking Status Former smoker, quit more than 30 days ago entered on: 05/16/20 Sex Female
--- OUTSIDE RECORDS SUMMARY | 2023-01-26 10:44 | XMS_ITS | Continuity of Care Document ---
Author Name Unknown Organization [facility] Address [address] [place] [address]- Care Team Providers Care Shell Freezing Machine Operator Name Role Phone Po Belinda MARY Primary Care Physician Encounter [facility] [place] Date(s): 11/03/21 - 01/10/[address] [address] Attending Physician: Not on Staff, Attending MD Allergies, Adverse Reactions, Alerts No Known Allergies Immunizations Given and Recorded Vaccine Date Status Refusal Reason tetanus/diphtheria/pertussis, acel(Tdap) 10/03/21 Given tetanus/diphtheria/pertussis, acel(Tdap) 09/28/20 Given Medications acetaminophen 325 mg oral tablet 650 mg, By Mouth, Every 4 hours, PRN, (1-3), may give 325mg per patient preference and re-dose [id number] within 4 hours, if needed. Patient should [...] tablet, Refills 0, Route to Pharmacy Electronically, [id number], 163, cm, 11/01/21 8:24:00 EST, Height, 85, [...] 11 Refills, Maintenance, 06/16/21 16:02:00 EDT, Tablet, [facility]/pharmacy #[id number], dose changed, 163, [...] services for DXs. Pt informed of [facility] services/declined - will call if services are needed. 2Urogyn Consult in CIS 3Patient reports during telehealth OBI visit that she is not currently engaged with Endo or any provider to help manage thyroid dysfunction. TSH level labs ordered. 4Patient reports during telehealth OBI visit that she is not currently engaged with Mental health services for DXs. Pt informed of [facility] services/declined - will call if services are needed. 5?bipolar 2 disorder; no meds/therapy currently Social History Social History Type Response Smoking Status Former smoker, quit more than 30 days ago entered on: 05/16/20 Sex
--- OUTSIDE RECORDS SUMMARY | 2023-01-26 10:44 | XMS_ITS | Continuity of Care Document ---
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 H/O: depression(Confirmed) 1 11/08/20 Active Hypothyroid(Confirmed) Active Marijuana use(Confirmed) Active Anxiety and depression(Confirmed) 2 Active Body piercing(Confirmed) Active (Confirmed) Active 1Problem added by Discern Expert 2?bipolar 2 disorder; no meds/therapy currently Vital Signs Most recent to oldest [Reference Range]: 1 Weight 81.7 kg (11/08/20 10:22 AM) Oxygen Saturation [94-100 %] 99 % (11/08/20 10:35 AM) Pulse Rate [55-90 bpm] 109 bpm *H* (11/08/20 10:35 AM) Blood Pressure [90-138/55-84 mm Hg] 116/ 79mm Hg (11/08/20 10:35 AM) Respiratory Rate [16-30 br/min] 18 br/mi n (11/08/20 10:35 AM) Temperature [96.8-100.4 DegF] 98.7 DegF (11/08/20 10:22 AM) Mode of Delivery (Oxygen) Room air (11/08/20 10:35 AM) Blood pressure sites Arm, right (11/08/20 10:35 AM) Temperature Route Oral (11/08/20 10:22 AM) Weight Obtained Via Standing scale (11/08/20 10:22 AM) Social History Social History Type Response Smoking Status Former smoker, quit more than 30 days ago entered on: 05/16/20 Sex
--- OUTSIDE RECORDS SUMMARY | 2023-01-26 10:44 | XMS_ITS | Continuity of Care Document ---
Author Name Unknown Organization [facility] Address [address] [place] [address]- Care Team Providers Care Exchange Consultant Name Role Phone Milind MARY [OB], Itzel Azevedo Primary Care Physician [place] [facility] [place](s): 12/28/20 - 03/22/21 [facility] [address] [address] Attending Physician: Not on Staff, Attending MD Allergies, Adverse Reactions, Alerts Substance Reaction [...]
--- OUTSIDE RECORDS SUMMARY | 2023-01-26 10:44 | XMS_ITS | Continuity of Care Document ---
Author Name Unknown Organization [facility] Address [address] [place] [address]- Care Team Providers Care Broaching Machine Set Up Operator Name Role Phone Milind MARY [OB], Itzel Azevedo Primary Care Physician [place] [facility] [place] - 04/07/[address] [address] Allergies, Adverse Reactions, Alerts Substance Reaction Severity Status NKA Active Immunizations Given and Recorded Vaccine Date Status Refusal Reason tetanus/diphtheria/pertussis, acel(Tdap) 09/28/20 Given Medications Multivitamins with Folic Acid 1 mg oral capsule See Instructions, TAKE ONE DAILY BY MOUTH, # 100 capsule, 2 Refills, Maintenance, 04/07/21 10:09:00EDT, [facility]/pharmacy #[id number], Partial fill upon patient request if the prescription is for a schedule IIopioid drug., TAKE ONE DAILY BY MOUTH, 163, cm, 05/... Start Date: 04/07/21 Status: Ordered Problem List [...]
--- OUTSIDE RECORDS SUMMARY | 2023-01-26 10:44 | XMS_ITS | Continuity of Care Document ---
Author Name Unknown Organization [facility] Address [address] [place] [address]- Care Team Providers Care Wardrobe Supervisor Name Role Phone Po Belinda MARY Primary Care Physician [phone] Encounter [id number] Date(s): 10/03/21 - 12/17/[address] [address] Attending Physician: Not on Staff, Attending MD Allergies, Adverse Reactions, Alerts No Known Allergies Immunizations Given and Recorded Vaccine Date Status Refusal Reason tetanus/diphtheria/pertussis, acel(Tdap) 10/03/21 Given tetanus/diphtheria/pertussis, acel(Tdap) 09/28/20 Given Medications acetaminophen 325 mg oral tablet 650 mg, By Mouth, Every 4 hours, PRN, (1-3), may give 325mg per patient preference and re-dose [id number] within 4 hours, if needed. Patient should [...] tablet, Refills 0, Route to Pharmacy Electronically, [id number], 163, cm, 11/01/21 8:24:00 EST, Height, 85, [...] 11 Refills, Maintenance, 06/16/21 16:02:00 EDT, Tablet, [facility]/pharmacy #[id number], dose changed, 163, cm, 05/29/21 [...] health services for DXs. Pt informed of [facility] services/declined - will call if services are needed. 2Urogyn Consult in CIS 3Patient reports during telehealth OBI visit that she is not currently engaged with Endo or any provider to help manage thyroid dysfunction. TSH level labs ordered. 4Patient reports during telehealth OBI visit that she is not currently engaged with Mental health services for DXs. Pt informed of [facility] services/declined - will call if services are needed. 5?bipolar 2 disorder; no meds/therapy currently Social History Social History Type Response Smoking Status Former smoker, quit more than 30 days ago entered on: 05/16/20 Sex
--- OUTSIDE RECORDS SUMMARY | 2023-01-26 10:44 | XMS_ITS | Continuity of Care Document ---
Author Name Unknown Organization [facility] Address [address] [place] [address]- Care Team Providers Care Hub Cutter Apprentice Name Role Phone Belinda Helm MD Primary Care Physician En[place] [facility] Date(s): 06/29/21 - 10/27/21 [facility] [address] [place] [address] Attending Physician: Betzaida Keith MD Admitting Physician: Betzaida Keith MD Referring Physician: Milind MARY [OB], Itzel Azevedo Allergies, Adverse Reactions, Alerts No Known Allergies Immunizations Given and Recorded Vaccine Date Status Refusal Reason tetanus/diphtheria/pertussis, acel(Tdap) 10/03/21 Given tetanus/diphtheria/pertussis, acel(Tdap) 09/28/20 Given Medications famotidine 20 mg oral tablet 20 mg, 1, tablet, By Mouth, 2 times a day, # 180 tablet, Refills 0, Tot. Refills 0, Maintenance, 09/25/21 14:02:00 EST, Route to Pharmacy Electronically, [facility]/pharmacy #[id number], Partial fill upon patientrequest if the prescription is for a schedule II op... Start Date: 09/25/21 Status: Ordered levothyroxine 125 mcg (0.125 mg) oral tablet 1 tablet = 125 mcg, By Mouth, Daily, # 30 tablet, 11 Refills, Maintenance, 06/16/21 16:02:00 EDT, Tablet, [facility]/pharmacy #[id number], dose changed, 163, cm, 05/29/21 [...] 100 capsule, 2 Refills, Maintenance, 04/07/21 10:09:00EDT, [facility]/pharmacy #[id number], Partial fill upon patient request [...] health services for DXs. Pt informed of [facility] services/declined - will call if services are needed. 2Urogyn Consult in CIS 3Patient reports during telehealth OBI visit that she is not currently engaged with Endo or any provider to help manage thyroid dysfunction. TSH level labs ordered. 4Patient reports during telehealth OBI visit that she is not currently engaged with Mental health services for DXs. Pt informed of [facility] services/declined - will call if services are needed. 5?bipolar 2 disorder; no meds/therapy currently Social History Social History Type Response Smoking Status Former smoker, quit more than 30 days ago entered on: 05/16/20 Sex Female
--- OUTSIDE RECORDS SUMMARY | 2023-01-26 10:44 | XMS_ITS | Continuity of Care Document ---
Author Name Unknown Organization [facility] Address [address] [place] [address]- Care Team Providers Care Web Content Editor Name Role Phone Milind MARY [OB], Itzel Azevedo Primary Care Physician [place] [facility] [place] 04/28/21 - 05/28/[address] [address]- Allergies, Adverse Reactions, Alerts Substance Reaction Severity Status NKA Active Immunizations Given and Recorded Vaccine Date Status Refusal Reason tetanus/diphtheria/pertussis, acel(Tdap) 09/28/20 Given Medications levothyroxine 75 mcg (0.075 mg) oral tablet 1 tablet = 75 mcg, By Mouth, Daily, # 30 tablet, 1 Refills, Maintenance, 04/28/21 10:00:00 EDT, Tablet, [id number], Partial fill upon patient request if the prescription is for a schedule II opioid drug., 163, cm, 04/18/21 13:28:00 EDT, Height... Start Date: 04/28/21 Status: Ordered Multivitamins with Folic Acid 1 [...] onfirmed) 4, 5 Active Body piercing(Confirmed) Active 1Patient reports during telehealth OBI visit [...] services for DXs. Pt informed of [facility] services/declined - will call if services are needed. 5?bipolar 2 disorder; no meds/therapy currently Social History Social History Type Response Smoking Status Former smoker, quit more than 30 days ago entered on: 05/16/20 Sex
--- OUTSIDE RECORDS SUMMARY | 2023-01-26 10:44 | XMS_ITS | Continuity of Care Document ---
Author Name Unknown Organization [facility] Address [address] [place] [address]- Care Team Providers Care Animal Rides Manager Name Role Phone Luis Fernando MARY, Mina Primary Care Physician Encounter [facility] Date(s): 11/13/19 - 12/17/19 [facility] [address] [address]- [facility] Attending Physician: Not on Staff, Attending MD [...]
--- OUTSIDE RECORDS SUMMARY | 2023-01-26 10:44 | XMS_ITS | Continuity of Care Document ---
Author Name Unknown Organization [facility] Address [address] [place] [address]- Care Team Providers Care Payment Rep Name Role Phone Po Belinda MARY Primary Care Physician [phone] [place] [facility] [place] Date(s): 10/31/21 - 11/30/[address] [address] Allergies, Adverse Reactions, Alerts No Known Allergies Immunizations Given and Recorded Vaccine Date Status Refusal Reason tetanus/diphtheria/pertussis, acel(Tdap) 10/03/21 Given tetanus/diphtheria/pertussis, acel(Tdap) 09/28/20 Given Medications acetaminophen 325 mg oral tablet 650 mg, By Mouth, Every 4 hours, PRN, (1-3), may give 325mg per patient preference and re-dose [id number] within 4 hours, if needed. Patient should [...] that she is not currently engaged with [facility] or any provider to help manage thyroid dysfunction. TSH level labs ordered. 4Patient reports during telehealth OBI visit that she is not currently engaged with Mental health services for DXs. Pt informed of [facility] services/declined - will call if services are needed. 5?bipolar 2 disorder; no meds/therapy currently Social History Social History Type Response Smoking Status Former smoker, quit more than 30 days ago entered on: 05/16/20 Sex
--- OUTSIDE RECORDS SUMMARY | 2023-01-26 10:44 | XMS_ITS | Continuity of Care Document ---
Author Name Unknown Organization [facility] Address [address] [place] [address]- Care Team Providers Care Sourcing Engineer Name Role Phone Po Belinda MARY Primary Care Physician [phone] Encounter [facility] [place] Date(s): 11/03/21 - 02/16/[address] [address] Attending Physician: Not on Staff, Attending MD Allergies, Adverse Reactions, Alerts No Known Allergies Immunizations Given and Recorded Vaccine Date Status Refusal Reason tetanus/diphtheria/pertussis, acel(Tdap) 10/03/21 Given tetanus/diphtheria/pertussis, acel(Tdap) 09/28/20 Given Medications acetaminophen 325 mg oral tablet 650 mg, By Mouth, Every 4 hours, PRN, (1-3), may give 325mg per patient preference and re-dose [id number] within 4 hours, if needed. Patient should only receive a total of 650mg of Acetaminophen every 4 hours., Refills 0, Maintenance, Pain , Mild, 0... Start Date: 11/01/21 Status: Ordered Diflucan 150 mg oral tablet 1 tablet = 150 mg, By Mouth, Once, # 1 tablet, 0 Refills, Soft Stop, 01/23/22 18:05:00 EDT, [facility]t,[id number], Partial fill upon patient request if the [...] tablet, Refills 0, Route to Pharmacy Electronically, [id number], 163, cm, 11/01/21 8:24:00 EST, Height, 85, [...] 11 Refills, Maintenance, 06/16/21 16:02:00 EDT, Tablet, [facility]/pharmacy #[id number], dose changed, 163, cm, [...] 100 capsule, 2 Refills, Maintenance, 04/07/21 10:09:00EDT, [facility]/pharmacy #[id number], Partial fill upon patient request [...] health services for DXs. Pt informed of [facility] services/declined - will call if services are needed. 2Urogyn Consult in CIS 3Patient reports during telehealth OBI visit that she is not currently engaged with Endo or any provider to help manage thyroid dysfunction. TSH level labs ordered. 4Patient reports during telehealth OBI visit that she is not currently engaged with Mental health services for DXs. Pt informed of [facility] services/declined - will call if services are needed. 5?bipolar 2 disorder; no meds/therapy currently Social History Social History Type Response Smoking Status Former smoker, quit more than 30 days ago entered on: 05/16/20 Sex
--- OUTSIDE RECORDS SUMMARY | 2023-01-26 10:44 | XMS_ITS | Continuity of Care Document ---
Author Name Unknown Organization [facility] Address [address] [place] [address]- Care Team Providers Care Ticket Scheduler Name Role Phone Milind MARY [OB], Itzel Azevedo Primary Care Physician Encounter [facility] Date(s): 06/16/21 - 07/16/21 [facility] [address] [place] [address] Allergies, Adverse Reactions, Alerts Substance Reaction Severity Status NKA Active Immunizations Given and Recorded Vaccine Date Status Refusal Reason tetanus/diphtheria/pertussis, acel(Tdap) 09/28/20 Given Medications levothyroxine 125 mcg (0.125 mg) oral tablet [...] services for DXs. Pt informed of [facility] services/declined - will call if services are needed. 2Urogyn Consult in CIS 3Patient reports during telehealth OBI visit that she is not currently engaged with Endo or any provider to help manage thyroid dysfunction. TSH level labs ordered. 4Patient reports during telehealth OBI visit that she is not currently engaged with Mental health services for DXs. Pt informed of [facility] services/declined - will call if services are needed. 5?bipolar 2 disorder; no meds/therapy currently Social History Social History Type Response Smoking Status Former smoker, quit more than 30 days ago entered on: 05/16/20 Sex
--- OUTSIDE RECORDS SUMMARY | 2023-01-26 10:44 | XMS_ITS | Continuity of Care Document ---
Author Name Unknown Organization [facility] Address [address] [place] [address]- Care Team Providers Care Production Manufacturing Worker Name Role Phone Po Belinda MARY Primary Care Physician En[place] [facility] Date(s): 10/26/21 - 11/25/[address] [address] Allergies, Adverse Reactions, Alerts No Known Allergies Immunizations Given and Recorded Vaccine Date Status Refusal Reason tetanus/diphtheria/pertussis, acel(Tdap) 10/03/21 Given tetanus/diphtheria/pertussis, acel(Tdap) 09/28/20 Given Medications acetaminophen 325 mg oral tablet 650 mg, By Mouth, Every 4 hours, PRN, (1-3), may give 325mg per patient preference and re-dose [id number] within 4 hours, if needed. Patient should [...] health services for DXs. Pt informed of [facility] services/declined - will call if services are needed. 5?bipolar 2 disorder; no meds/therapy currently Social History Social History Type Response Smoking Status Former smoker, quit more than 30 days ago entered on: 05/16/20 Sex
--- OUTSIDE RECORDS SUMMARY | 2023-01-26 10:44 | XMS_ITS | Continuity of Care Document ---
Author Name Unknown Organization [facility] Address [address] [facility] [address] [place] [address]- Care Team Providers Care Line Runner Name Role Phone Po Belinda MARY Primary Care Physician [phone] [place] [facility] Date(s): 08/02/21 - 09/01/21 [facility] [place] [facility] [address] [facility] [address] [place], [place] [address] Allergies, Adverse Reactions, Alerts Substance Reaction [...] services for DXs. Pt informed of [facility] services/declined - will call if services are needed. 2Urogyn Consult in CIS 3Patient reports during telehealth OBI visit that she is not currently engaged with Endo or any provider to help manage thyroid dysfunction. TSH level labs ordered. 4Patient reports during telehealth OBI visit that she is not currently engaged with Mental health services for DXs. Pt informed of [facility] services/declined - will call if services are needed. 5?bipolar 2 disorder; no meds/therapy currently Social History Social History Type Response Smoking Status Former smoker, quit more than 30 days ago entered on: 05/16/20 Sex Female
--- OUTSIDE RECORDS SUMMARY | 2023-01-26 10:44 | XMS_ITS | Continuity of Care Document ---
Author Name Unknown Organization [facility] Address [address] [place] [address]- Care Team Providers Care Labor Gang Supervisor Name Role Phone Po Belinda MARY Primary Care Physician Encounter [facility] Date(s): 10/05/20 - 11/04/[address] [address] Allergies, Adverse Reactions, Alerts Substance Reaction Severity [...]
--- OUTSIDE RECORDS SUMMARY | 2023-01-26 10:44 | XMS_ITS | Continuity of Care Document ---
Author Name Unknown Organization [facility] Address [address] [place] [address]- Care Team Providers Care Acoustical Tile Patternmaker Name Role Phone Po Belinda MARY Primary Care Physician [phone] [id number] Date(s): 10/03/21 - 12/24/[address] [address] Attending Physician: Not on Staff, Attending MD Allergies, Adverse Reactions, Alerts No Known Allergies Immunizations Given and Recorded Vaccine Date Status Refusal Reason tetanus/diphtheria/pertussis, acel(Tdap) 10/03/21 Given tetanus/diphtheria/pertussis, acel(Tdap) 09/28/20 Given Medications acetaminophen 325 mg oral tablet 650 mg, By Mouth, Every 4 hours, PRN, (1-3), may give 325mg per patient preference and re-dose [id number] within 4 hours, if needed. Patient should [...] tablet, Refills 0, Route to Pharmacy Electronically, [id number], 163, cm, 11/01/21 8:24:00 EST, Height, 85, [...] 11 Refills, Maintenance, 06/16/21 16:02:00 EDT, Tablet, [facility]/pharmacy #[id number], dose changed, 163, cm, [...] health services for DXs. Pt informed of [facility] services/declined - will call if services are needed. 2Urogyn Consult in CIS 3Patient reports during telehealth OBI visit that she is not currently engaged with Endo or any provider to help manage thyroid dysfunction. TSH level labs ordered. 4Patient reports during telehealth OBI visit that she is not currently engaged with Mental health services for DXs. Pt informed of [facility] services/declined - will call if services are needed. 5?bipolar 2 disorder; no meds/therapy currently Social History Social History Type Response Smoking Status Former smoker, quit more than 30 days ago entered on: 05/16/20 Sex
--- OUTSIDE RECORDS SUMMARY | 2023-01-26 10:44 | XMS_ITS | Continuity of Care Document ---
Author Name Unknown Organization [facility] Address [address] [place] [address]- Care Team Providers Care Clerical Assistant Name Role Phone Po Belinda MARY Primary Care Physician [place] [facility] [place] - 03/01/[address] [address] Allergies, Adverse Reactions, Alerts No Known Allergies Immunizations Given and Recorded Vaccine Date Status Refusal Reason tetanus/diphtheria/pertussis, acel(Tdap) 10/03/21 Given tetanus/diphtheria/pertussis, acel(Tdap) 09/28/20 Given Medications acetaminophen 325 mg oral tablet 650 mg, By Mouth, Every 4 hours, PRN, (1-3), may give 325mg per patient preference and re-dose [id number] within 4 hours, if needed. Patient should only receive a total of 650mg of Acetaminophen every 4 hours., Refills 0, Maintenance, Pain , Mild, 0... Start Date: 11/01/21 Status: Ordered Diflucan 150 mg oral tablet 1 tablet = 150 mg, By Mouth, Once, # 1 tablet, 0 Refills, Soft Stop, 01/23/22 18:05:00 EDT, [id number], Partial fill upon patient request if the [...] tablet, Refills 0, Route to Pharmacy Electronically, [id number], 163, cm, 11/01/21 8:24:00 EST, Height, 85, [...] 11 Refills, Maintenance, 06/16/21 16:02:00 EDT, Tablet, [facility]/pharmacy #[id number], dose changed, 163, cm, 05/29/21 9:58:00 [...] 100 capsule, 2 Refills, Maintenance, 04/07/21 10:09:00EDT, [facility]/pharmacy #[id number], Partial fill upon patient request if [...] health services for DXs. Pt informed of [facility] services/declined - will call if services are needed. 2Urogyn Consult in CIS 3Patient reports during telehealth OBI visit that she is not currently engaged with Endo or any provider to help manage thyroid dysfunction. TSH level labs ordered. 4Patient reports during telehealth OBI visit that she is not currently engaged with Mental health services for DXs. Pt informed of [facility] services/declined - will call if services are needed. 5?bipolar 2 disorder; no meds/therapy currently Social History Social History Type Response Smoking Status Former smoker, quit more than 30 days ago entered on: 05/16/20 Sex
--- OUTSIDE RECORDS SUMMARY | 2023-01-26 10:44 | XMS_ITS | Continuity of Care Document ---
Author Name Unknown Organization [facility] Address [address] [place] [address]- Care Team Providers Care Storage Garage Manager Name Role Phone Milind MARY [OB], Itzel Azevedo Primary Care Physician En[facility] [place] Date(s): 11/30/20 - 11/30/[address] [address] Discharge Disposition: A-D/C Home Attending Physician: Lubna Callahan MD Admitting Physician: Lubna Callahan MD Referring Physician: Lubna Callahan MD Allergies, Adverse Reactions, Alerts Substance Reaction Severity Status NKA Active Immunizations Given and Recorded Vaccine Date Status Refusal Reason tetanus/diphtheria/pertussis, acel(Tdap) 09/28/20 Given Medications fluconazole 150 mg oral tablet 1 tablet = 150 mg, By Mouth, Once, # 1 tablet, 0 Refills, Soft Stop, 11/30/20 19:05:00 EST, [id number], Partial fill upon patient request if the prescription is for a schedule II opioid drug., 163, cm, 11/30/20 16:59:00 EST, Height, 73... Start Date: 11/30/20 Status: Ordered LSO for low back pain LSO for [...] oldest [Reference Range]: 1 Height 163 cm (11/30/20 4:53 PM) Weight 83.5 kg (11/30/20 4:53 PM) Oxygen Saturation [94-100 %] 99 % (11/30/20 4:53 PM) Pulse Rate [55-90 bpm] 90 bpm (11/30/20 4:53 PM) Body Mass Index [18.5-24.99] 31.43 *>HHI* (11/30/20 4:53 PM) Blood Pressure [90-138/55-84 mm Hg] 108/ 76mm Hg (11/30/20 4:53 PM) Respiratory Rate [16-30 br/min] 18 br/mi n (11/30/20 4:53 PM) Temperature [96.8-100.4 DegF] 98.0 DegF (11/30/20 4:53 PM) Blood pressure sites Arm, right (11/30/20 4:53 PM) Temperature Route Oral (11/30/20 4:53 PM) Social History Social History Type Response Smoking Status Former smoker, quit more than 30 days ago entered on: 05/16/20 Sex Female
--- OUTSIDE RECORDS SUMMARY | 2023-01-26 10:44 | XMS_ITS | Continuity of Care Document ---
Author Name Unknown Organization [facility] Address [address] [place] [address]- Care Team Providers Care Pairing Machine Operator Name Role Phone Milind MARY [OB], Itzel Azevedo Primary Care Physician ( [phone] [place] [facility] [place] - 12/04/[address] [address]- Discharge Disposition: A-D/C Home Attending Physician: Lubna Callahan MD Admitting Physician: Lubna Callahan MD Referring Physician: Lubna Callahan MD Allergies, Adverse Reactions, Alerts Substance Reaction Severity Status NKA Active Immunizations Given and Recorded Vaccine Date Status Refusal Reason tetanus/diphtheria/pertussis, acel(Tdap) 09/28/20 Given Medications Ibuprofen Tablet 800 mg, Tablet, By Mouth, Every 8 hours, PRN for Pain , Moderate, (4-6), may give 400mg per patientpreference and re-dose with 400mg within 8 hours if needed. Patient should only receive a total of 800mg of Ibuprofen every 8 hours., Routine, ... Start Date: 12/02/20 Stop Date: 12/04/20 Status: Discontinued LSO for low back pain LSO for low back pain, See Instructions, # 1 each, Refills 0, Tot. Refills 0, Maintenance, please size patient, 10/12/20 13:49:00 EST, Supply Start Date: 10/12/20 Status: Ordered Pepcid 20 mg oral tablet 1 tablet = 20 mg, By Mouth, 2 times a day, # 180 tablet, 1 Refills, Maintenance, 09/23/20 17:11:00 EST, [id number], Partial fill upon patient request if the [...] Most recent to oldest [Reference Range]: 1 2 3 Height 163 cm (12/04/20 8:11 AM) 163 cm (12/04/20 12:00 AM) 163 cm (12/03/20 6:28 PM) Weight 83.3 kg (12/02/20 4:11 PM) 83.3 kg (12/02/20 4:07 PM) 83.3 kg (12/02/20 9:27 AM) Oxygen Saturation [94-100 %] 100 % (12/04/20 12:00 AM) 100 % (12/03/20 5:25 AM) 99 % (12/02/20 11:15 PM) Pulse Rate [55-90 bpm] 88 bpm (12/04/20 8:11 AM) 67 bpm (12/04/20 12:00 AM) 77 bpm (12/03/20 6:28 PM) Body Mass Index [18.5-24.99] 31.35 *>HHI* (12/02/20 4:07 PM) Blood Pressure [90-138/55-84 mm Hg] 119/77mm Hg (12/04/20 8:11 AM) 120/79mm Hg (12/04/20 12:00 AM) 119/67mm Hg (12/03/20 6:28 PM) Respiratory Rate [16-30 br/min] 17 br/min (12/04/20 8:11 AM) 19 br/min (12/04/20 12:00 AM) 20 br/min (12/03/20 10:34 PM) Temperature [96.8-100.4 DegF] 97.9 DegF (12/04/20 8:11 AM) 97.7 DegF (12/04/20 12:00 AM) 98.4 DegF (12/03/20 6:28 PM) Mode of Delivery (Oxygen) Room air (12/04/20 12:00 AM) Room air (12/03/20 5:25 AM) Blood pressure sites Arm, right (12/04/20 8:11 AM) Arm, right (12/03/20 6:28 PM) Arm, right (12/03/20 3:44 PM) Temperature Route Oral (12/04/20 8:11 AM) Oral (12/04/20 12:00 AM) Oral (12/03/20 6:28 PM) Dry Weight 83.3 kg (12/02/20 4:07 PM) 83.3 kg (12/02/20 9:27 AM) Weight Obtained Via Patient/family stated (12/02/20 4:11 PM) Patient/family stated (12/02/20 4:07 PM) Social History Social History Type Response Smoking Status Former smoker, quit more than 30 days ago entered on: 05/16/20 Sex Female
--- OUTSIDE RECORDS SUMMARY | 2023-01-26 10:44 | XMS_ITS | Continuity of Care Document ---
Author Name Unknown Organization [facility] Address [address] [place] [address]- Care Team Providers Care Mechanical Product Engineer Name Role Phone Milind MARY [OB], tIzel Azevedo Primary Care Physician Encounter [facility] [place] Date(s): 12/05/20 - 02/12/21 [facility] [address] [address]- Attending Physician: Abril Britton CNM Admitting Physician: Abril Britton CNM Referring Physician: Jennifer Appiah MD Allergies, Adverse Reactions, Alerts Substance Reaction [...]
--- OUTSIDE RECORDS SUMMARY | 2023-01-26 10:44 | XMS_ITS | Continuity of Care Document ---
Author Name Unknown Organization [facility] Address [address] [place] [address]- Care Team Providers Care International Freight Forwarder Name Role Phone Milind MARY [OB], Itzel Azevedo Primary Care Physician [place] [facility] [place] - 06/09/21 [facility] [address] [place] [address]- Attending Physician: Betzaida Keith MD Admitting Physician: Betzaida Keith MD Referring Physician: Milind MARY [OB]Itzel Allergies, Adverse Reactions, Alerts Substance Reaction Severity Status NKA Active Immunizations Given and Recorded Vaccine Date Status Refusal Reason tetanus/diphtheria/pertussis, acel(Tdap) 09/28/20 Given Medications levothyroxine 0.1 mg oral tablet 1 tablet = 100 mcg, By Mouth, Daily, # 30 tablet, 9 Refills, Maintenance, 05/30/21 22:19:00 EDT, Tablet, [id number], Partial fill upon patient request if the prescription is for a schedule IIopioid drug., 163, cm, 05/29/21 9:58:00 EDT, Height... Start Date: 05/30/21 Status: Ordered Multivitamins with Folic Acid 1 [...] health services for DXs. Pt informed of [facility] services/declined - will call if services are needed. 2Urogyn Consult in CIS 3Patient reports during telehealth OBI visit that she is not currently engaged with Endo or any provider to help manage thyroid dysfunction. TSH level labs ordered. 4Patient reports during telehealth OBI visit that she is not currently engaged with Mental health services for DXs. Pt informed of [facility] services/declined - will call if services are needed. 5?bipolar 2 disorder; no meds/therapy currently Social History Social History Type Response Smoking Status Former smoker, quit more than 30 days ago entered on: 05/16/20 Sex
--- OUTSIDE RECORDS SUMMARY | 2023-01-26 10:44 | XMS_ITS | Continuity of Care Document ---
Author Name Unknown Organization [facility] Address [address] [place] [address]- Care Team Providers Care Clothing Busheler Name Role Phone Po Belinda MARY Primary Care Physician [phone] [place] [facility] [place](s): 01/22/22 - 04/04/[address] [address]- Attending Physician: Not on Staff, Attending MD Allergies, Adverse Reactions, Alerts No Known Allergies Immunizations Given and Recorded Vaccine Date Status Refusal Reason tetanus/diphtheria/pertussis, acel(Tdap) 10/03/21 Given tetanus/diphtheria/pertussis, acel(Tdap) 09/28/20 Given Medications acetaminophen 325 mg oral tablet 650 mg, By Mouth, Every 4 hours, PRN, (1-3), may give 325mg per patient preference and re-dose [id number] within 4 hours, if needed. Patient should only receive a total of 650mg of Acetaminophen every 4 hours., Refills 0, Maintenance, Pain , Mild, 0... Start Date: 11/01/21 Status: Ordered Diflucan 150 mg oral tablet 1 tablet = 150 mg, By Mouth, Once, # 1 tablet, 0 Refills, Soft Stop, 01/23/22 18:05:00 EDT, [id number], Partial fill upon patient request if the [...] tablet, Refills 0, Route to Pharmacy Electronically, [id number], 163, cm, 11/01/21 8:24:00 EST, Height, 85, [...] 11 Refills, Maintenance, 06/16/21 16:02:00 EDT, Tablet, [facility]/pharmacy #[id number], dose changed, 163, [...] 100 capsule, 2 Refills, Maintenance, 04/07/21 10:09:00EDT, [facility]/pharmacy #[id number], Partial fill upon patient [...] services for DXs. Pt informed of [facility] services/declined - will call if services are needed. 2Urogyn Consult in CIS 3Patient reports during telehealth OBI visit that she is not currently engaged with Endo or any provider to help manage thyroid dysfunction. TSH level labs ordered. 4Patient reports during telehealth OBI visit that she is not currently engaged with Mental health services for DXs. Pt informed of [facility] services/declined - will call if services are needed. 5?bipolar 2 disorder; no meds/therapy currently Social History Social History Type Response Smoking Status Former smoker, quit more than 30 days ago entered on: 05/16/20 Sex
--- OUTSIDE RECORDS SUMMARY | 2023-01-26 10:44 | XMS_ITS | Continuity of Care Document ---
Author Name Unknown Organization [facility] Address [address] [place] [address]- Care Team Providers Care Toll Collector Supervisor Name Role Phone Po Belinda MARY Primary Care Physician Encounter [facility] Date(s): 09/12/20 - 10/12/[address] [address] Allergies, Adverse Reactions, Alerts Substance [...]
--- OUTSIDE RECORDS SUMMARY | 2023-01-26 10:44 | XMS_ITS | Continuity of Care Document ---
Author Name Unknown Organization [facility] Address [address] [place] [address]- Care Team Providers Care Blast Furnace Helper Name Role Phone Milind MARY, Itzel Azevedo Primary Care Physician Encounter [facility] [place] Date(s): 10/25/20 - 11/24/[address] [address] Allergies, Adverse Reactions, Alerts Substance Reaction Severity [...] Expert 2?bipolar 2 disorder; no meds/therapy currently Social History Social History Type Response Smoking Status Former smoker, quit more than 30 days ago entered on: 05/16/20 Sex Female
--- OUTSIDE RECORDS SUMMARY | 2023-01-26 10:44 | XMS_ITS | Continuity of Care Document ---
Author Name Unknown Organization [facility] Address [address] [place] [address]- Care Team Providers Care Client Executive Name Role Phone Milind MARY [OB], Itzel Azevedo Primary Care Physician Encounter [facility] [place] Date(s): 11/18/20 - 01/04/[address] [address]- Attending Physician: Not on Staff, Attending MD Referring Physician: Jennifer Appiah MD Allergies, Adverse [...]
--- OUTSIDE RECORDS SUMMARY | 2023-01-26 10:44 | XMS_ITS | Continuity of Care Document ---
Author Name Unknown Organization [facility] Address [address] [place] [address]- Care Team Providers Care Linen Checker Name Role Phone Milind MARY [OB], Itzel Azevedo Primary Care Physician Encounter [facility] [place] Date(s): 11/23/20 - 12/23/[address] [address]- Allergies, Adverse Reactions, Alerts Substance Reaction Severity [...]
--- OUTSIDE RECORDS SUMMARY | 2023-01-26 10:44 | XMS_ITS | Continuity of Care Document ---
Author Name Unknown Organization [facility] Address [address] [place] [address]- Care Team Providers Care Recorder Helper Seismograph Name Role Phone Milind MARY [OB], Itzel Azevedo Primary Care Physician Encounter [facility] [place] Date(s): 11/18/20 - 01/18/21 [facility] [address] [address]- Attending Physician: Not on Staff, Attending MD [...]
--- OUTSIDE RECORDS SUMMARY | 2023-01-26 10:44 | XMS_ITS | Continuity of Care Document ---
Author Name Unknown Organization [facility] Address [address] [place] [address]- Care Team Providers Care Outpatient Clerk Name Role Phone Milind MARY [OB], Itzel Azevedo Primary Care Physician ( [phone] [place] [facility] [place] Date(s): 12/02/20 - 01/01/21 [facility] [address] [address]- Allergies, Adverse Reactions, Alerts Substance Reaction Severity [...]
--- OUTSIDE RECORDS SUMMARY | 2023-01-26 10:44 | XMS_ITS | Continuity of Care Document ---
Author Name Unknown Organization [facility] Address [address] [place] [address]- Care Team Providers Care Phosphoric Acid Operator Name Role Phone Po Belinda MARY Primary Care Physician [phone] Encounter [facility] Date(s): 09/23/20 - 10/23/[address] [address] Allergies, Adverse Reactions, Alerts Substance Reaction Severity [...]
--- OUTSIDE RECORDS SUMMARY | 2023-01-26 10:44 | XMS_ITS | Continuity of Care Document ---
Author Name Unknown Organization [facility] Address [address] [place] [address]- Care Team Providers Care Sql Server Developer Name Role Phone Milind MARY [OB], Itzel Azevedo Primary Care Physician En[place] [facility] [place] Date(s): 11/18/20 - 01/11/21 [facility] [address] [address]- Attending Physician: Not on Staff, Attending MD [...]
--- OUTSIDE RECORDS SUMMARY | 2023-01-26 10:44 | XMS_ITS | Continuity of Care Document ---
Author Name Unknown Organization [facility] Address [address] [place] [address]- Care Team Providers Care Co Founder Name Role Phone Milind MARY, Itzel Azevedo Primary Care Physician [place] [facility] [place] Date(s): 10/10/20 - 11/09/[address] [address] Allergies, Adverse Reactions, Alerts [...]
--- OUTSIDE RECORDS SUMMARY | 2023-01-26 10:44 | XMS_ITS | Continuity of Care Document ---
Author Name Unknown Organization [facility] Address [address] [place] [address]- Care Team Providers Care Oracle Soa Developer Name Role Phone Luis Fernando MARY, Mina Primary Care Physician Encounter [facility] Date(s): 06/22/20 - 07/22/20 [facility] [address] [address]- [facility] Allergies, Adverse Reactions, Alerts Substance Reaction Severity [...]
--- OUTSIDE RECORDS SUMMARY | 2023-01-26 10:44 | XMS_ITS | Continuity of Care Document ---
Author Name Unknown Organization [facility] Address [address] [place] [address]- Care Team Providers Care Resident Physician In Radiology Name Role Phone Milind MARY [OB], Itzel Azevedo Primary Care Physician Encounter [facility] [place] Date(s): 04/05/21 - 05/05/[address] [address]- Allergies, Adverse Reactions, Alerts Substance Reaction Severity [...] services for DXs. Pt informed of [facility] services/declined - will call if services are needed. 5?bipolar 2 disorder; no meds/therapy currently Social History Social History Type Response Smoking Status Former smoker, quit more than 30 days ago entered on: 05/16/20 Sex
--- OUTSIDE RECORDS SUMMARY | 2023-01-26 10:44 | XMS_ITS | Continuity of Care Document ---
Author Name Unknown Organization [facility] Address [address] [place] [address]- Care Team Providers Care Medical Collector Name Role Phone Po Belinda MARY Primary Care Physician Encounter [facility] [place] Date(s): 11/12/22 - 12/12/[address] [address]- Allergies, Adverse Reactions, Alerts No Known Allergies Immunizations Given and Recorded Vaccine Date Status Refusal Reason tetanus/diphtheria/pertussis, acel(Tdap) 10/03/21 Given tetanus/diphtheria/pertussis, acel(Tdap) 09/28/20 Given Medications acetaminophen 325 mg oral tablet 650 mg, By Mouth, Every 4 hours, PRN, (1-3), may give 325mg per patient preference and re-dose [id number] within 4 hours, if needed. Patient should only receive a total of 650mg of Acetaminophen every 4 hours., Refills 0, Maintenance, Pain , Mild, 0... Start Date: 11/01/21 Status: Ordered Diflucan 150 mg oral tablet 1 tablet = 150 mg, By Mouth, Once, # 1 tablet, 0 Refills, Soft Stop, 01/23/22 18:05:00 EDT, [id number], Partial fill upon patient request if the [...] tablet, Refills 0, Route to Pharmacy Electronically, [id number], 163, cm, 11/01/21 8:24:00 EST, Height, 85, [...] tablet, 3 Refills, Maintenance, 06/28/22 15:13:00 EDT, [facility], 163, cm, 04/17/22 12:28:00 EDT, Height, 85, [...] capsule, 2 Refills, Maintenance, 04/07/21 10:09:00EDT, [facility]/pharmacy #[id number], Partial fill upon patient request if [...] health services for DXs. Pt informed of [facility] services/declined - will call if services are needed. 5?bipolar 2 disorder; no meds/therapy currently Social History Social History Type Response Smoking Status Former smoker, quit more than 30 days ago entered on: 05/16/20 Sex Patient Care team information Care Team Personnel Name: Belinda Helm MD Position: Reference Physician Member Role: PCP Address: Address: [address] [place] [address] - Care Team Related Persons Name: ALICE CHAUDHRY Address: [place], [place] Name: ALEXEY LOVE Address: Address: home [address], [place] Name: FRACISCO LOVE Address: home [address], [place] Name: TERESSA LOVE Address: [address] Address: home [address], [place] Name: ARGELIA SOUSA Address: [address]
--- OUTSIDE RECORDS SUMMARY | 2023-01-26 10:44 | XMS_ITS | Continuity of Care Document ---
Author Name Unknown Organization [facility] Address [address] [place] [address]- Care Team Providers Care Rehabilitation Program Coordinator Name Role Phone Milind MARY [OB], Itzel Azevedo Primary Care Physician [place] [facility] [place] 11/14/20 - 12/14/[address] [address]- Allergies, Adverse Reactions, Alerts Substance Reaction Severity [...]
--- OUTSIDE RECORDS SUMMARY | 2023-01-26 10:44 | XMS_ITS | Continuity of Care Document ---
Author Name Unknown Organization [facility] Address [address] [place] [address]- Care Team Providers Care Preschool Teacher'S Assistant Name Role Phone Luis Fernando MARY, Mina Primary Care Physician [place] [facility] [place] 05/19/20 - [facility]18/[facility] [address] [address]- [facility] Allergies, Adverse Reactions, Alerts Substance [...]
--- OUTSIDE RECORDS SUMMARY | 2023-01-26 10:44 | XMS_ITS | Continuity of Care Document ---
Author Name Unknown Organization [facility] Address [address] [place] [address]- Care Team Providers Care Parts Classifier Name Role Phone Milind MARY [OB], Itzel Azeevdo Primary Care Physician Encounter [facility] [place] Date(s): 12/06/20 - 01/05/21 [facility] [address] [address]- Allergies, Adverse Reactions, Alerts Substance Reaction Severity [...]
--- OUTSIDE RECORDS SUMMARY | 2023-01-26 10:44 | XMS_ITS | Continuity of Care Document ---
Author Name Unknown Organization [facility] Address [address] [place] [address]- Care Team Providers Care Ldr Rn Name Role Phone Luis Fernando MARY, Mina Primary Care Physician En[place] [facility] Date(s): 04/18/20 - 05/18/[address] [address]- [facility] Allergies, Adverse Reactions, Alerts Substance Reaction Severity Status NKA Active Medications doxylamine 25 mg oral tablet 0.5 tablet = 12.5 mg, By Mouth, 3 times a day, PRN Nausea & Vomiting, Take with pyridoxine, # 45 tablet, 0 Refills, Acute 05/20/20 15:32:00 EDT, 04/19/20 15:32:00 EDT, [id number], 168, cm, 11/11/19 10:21:00 EST, Height, 72.6, kg, 01/29/19 18:4... Start Date: 04/19/20 Stop Date: 05/20/20 Status: Ordered levothyroxine 0.075 mg oral tablet 1 tablet, By Mouth, Daily, # 30 tablet, 6 Refills, Maintenance, 12/28/16 15:57:49 Start Date: 12/28/16 Stop Date: 07/26/17 Status: Ordered Multivitamins By Mouth, Daily, 0 Refills, Maintenance, 10/18/19 17:58:00 EST Start Date: 10/18/19 Status: Ordered Multivitamins with Folic Acid 1 mg oral tablet 1 tablet, By Mouth, Daily, # 90 tablet, 3 Refills, Maintenance, 04/08/20 10:10:00 EDT, Tablet, [id number], 1 tablet By Mouth Daily, 168, cm, 11/11/19 10:21:00 EST, Height, 72.6, kg, 01/29/19 18:47:00 EDT, Dry Weight Start Date: 04/08/20 Status: Ordered pyridoxine 25 mg oral tablet 1 tablet = 25 mg, By Mouth, 3 times a day, PRN Nausea & Vomiting, Take with Doxylamine, # 90 tablet, 0 Refills, Acute 05/20/20 15:32:00 EDT, 04/19/20 15:32:00 EDT, [facility]/pharmacy #[id number], 168, cm, 11/11/19 10:21:00 EST, Height, 72.6, kg, 01/29/19 18:47:00... Start Date: 04/19/20 Stop Date: 05/20/20 Status: Ordered Problem List Condition Effective Dates Status Health Status Inform ant History of abnormal cervical Pap smear(Confirmed) Active Marijuana use(Confirmed) Active Anxiety and depression(Confirmed) 1 Active 1?bipolar 2 disorder; no meds/therapy currently Social History Social History Type Response Smoking Status Former smoker, quit more than 30 days ago entered on: 05/16/20 Sex
--- OUTSIDE RECORDS SUMMARY | 2023-01-26 10:44 | XMS_ITS | Continuity of Care Document ---
Author Name Unknown Organization [facility] Address [address] [place] [address]- Care Team Providers Care Corporate Counsel Name Role Phone Po Belinda MARY Primary Care Physician [place] [facility] [place]13[place] - 01/12/[address] [address] Allergies, Adverse Reactions, Alerts No Known Allergies Immunizations Given and Recorded Vaccine Date Status Refusal Reason tetanus/diphtheria/pertussis, acel(Tdap) 10/03/21 Given tetanus/diphtheria/pertussis, acel(Tdap) 09/28/20 Given Medications acetaminophen 325 mg oral tablet 650 mg, By Mouth, Every 4 hours, PRN, (1-3), may give 325mg per patient preference and re-dose [id number] within 4 hours, if needed. Patient should [...] tablet, Refills 0, Route to Pharmacy Electronically, [id number], 163, cm, 11/01/21 8:24:00 EST, Height, 85, [...] Refills, Maintenance, 06/16/21 16:02:00 EDT, Tablet, [facility]/pharmacy #[id number], dose changed, 163, cm, [...] capsule, 2 Refills, Maintenance, 04/07/21 10:09:00EDT, [facility]/pharmacy #[id number], Partial fill upon patient request [...] health services for DXs. Pt informed of [facility] services/declined - will call if services are needed. 2Urogyn Consult in CIS 3Patient reports during telehealth OBI visit that she is not currently engaged with Endo or any provider to help manage thyroid dysfunction. TSH level labs ordered. 4Patient reports during telehealth OBI visit that she is not currently engaged with Mental health services for DXs. Pt informed of [facility] services/declined - will call if services are needed. 5?bipolar 2 disorder; no meds/therapy currently Social History Social History Type Response Smoking Status Former smoker, quit more than 30 days ago entered on: 05/16/20 Sex
--- OUTSIDE RECORDS SUMMARY | 2023-01-26 10:44 | XMS_ITS | Continuity of Care Document ---
Author Name Unknown Organization [facility] Address [address] [place] [address]- Care Team Providers Care Building Rental Manager Name Role Phone Luis Fernando MARY, Mina Primary Care Physician [place] [facility] [place] 04/13/20 - 05/13/[address] [address]- [facility] Allergies, Adverse Reactions, Alerts [...] Acute 05/20/20 15:32:00 EDT, 04/19/20 15:32:00 EDT, [facility]/pharmacy #[id number], 168, cm, 11/11/19 10:21:00 EST, Height, 72.6, kg, 01/29/19 18:47:00... Start Date: 04/19/20 Stop Date: 05/20/20 Status: Ordered Social History Social History Type Response Tobacco Use: 4 or less cigar ettes(less than 1/4 pack)/day in last 30 days. Sex
--- OUTSIDE RECORDS SUMMARY | 2023-01-26 10:44 | XMS_ITS | Continuity of Care Document ---
Author Name Unknown Organization [facility] [employer] [facility] Address [address] [place] [address]- Care Team Providers Care Pharmaceutical Assistant Name Role Phone Po Belinda MARY Primary Care Physician En[place] [facility] [place] Date(s): 08/14/21 - 09/13/21 [facility] [email or web address] [facility] [address] [place], [place] [address] Allergies, Adverse Reactions, Alerts Substance [...] health services for DXs. Pt informed of [facility] services/declined - will call if services are needed. 2Urogyn Consult in CIS 3Patient reports during telehealth OBI visit that she is not currently engaged with Endo or any provider to help manage thyroid dysfunction. TSH level labs ordered. 4Patient reports during telehealth OBI visit that she is not currently engaged with Mental health services for DXs. Pt informed of [facility] services/declined - will call if services are needed. 5?bipolar 2 disorder; no meds/therapy currently Social History Social History Type Response Smoking Status Former smoker, quit more than 30 days ago entered on: 05/16/20 Sex Female
--- OUTSIDE RECORDS SUMMARY | 2023-01-26 10:44 | XMS_ITS | Continuity of Care Document ---
Author Name Unknown Organization [facility] Address [address] [place] [address]- Care Team Providers Care Independent Beauty Consultant Name Role Phone Po Belinda MARY Primary Care Physician En[place] [facility] [place] Date(s): 09/01/21 - 10/01/[address] [address] Allergies, Adverse Reactions, Alerts Substance Reaction Severity Status NKA Active Immunizations Given and Recorded Vaccine Date Status Refusal Reason tetanus/diphtheria/pertussis, acel(Tdap) 09/28/20 Given Medications famotidine 20 mg oral tablet 20 mg, 1, tablet, By Mouth, 2 times a day, # 180 tablet, Refills 0, Tot. Refills 0, Maintenance, 09/25/21 14:02:00 EST, Route to Pharmacy Electronically, [facility]/pharmacy #[id number], Partial fill upon patientrequest if the [...] health services for DXs. Pt informed of [facility] services/declined - will call if services are needed. 2Urogyn Consult in CIS 3Patient reports during telehealth OBI visit that she is not currently engaged with Endo or any provider to help manage thyroid dysfunction. TSH level labs ordered. 4Patient reports during telehealth OBI visit that she is not currently engaged with Mental health services for DXs. Pt informed of [facility] services/declined - will call if services are needed. 5?bipolar 2 disorder; no meds/therapy currently Social History Social History Type Response Smoking Status Former smoker, quit more than 30 days ago entered on: 05/16/20 Sex Female
--- OUTSIDE RECORDS SUMMARY | 2023-01-26 10:44 | XMS_ITS | Continuity of Care Document ---
Author Name Unknown Organization [facility] Address [address] [place] [address]- Care Team Providers Care Veneer Trimmer Name Role Phone Luis Fernando MARY, Mina Primary Care Physician En[place] [facility] [place] Date(s): 03/30/20 - 05/20/20 [facility] [address] [address]- [facility] Attending Physician: Not on Staff, Attending MD [...]
--- OUTSIDE RECORDS SUMMARY | 2023-01-26 10:44 | XMS_ITS | Continuity of Care Document ---
Author Name Unknown Organization [facility] Address [address] [place] [address]- Care Team Providers Care Pharmacy Customer Care Specialist Name Role Phone Po Belinda MARY Primary Care Physician [phone] Encounter [facility] Date(s): 08/30/20 - 09/29/[address] [address]- Allergies, Adverse Reactions, Alerts Substance Reaction Severity Status NKA Active Immunizations Given and Recorded Vaccine Date Status Refusal Reason tetanus/diphtheria/pertussis, acel(Tdap) 09/28/20 Given Medications Pepcid 20 mg oral tablet 1 tablet [...]
--- OUTSIDE RECORDS SUMMARY | 2023-01-26 10:44 | XMS_ITS | Continuity of Care Document ---
Author Name Unknown Organization [facility] Address [address] [place] [address]- Care Team Providers Care Tubing Oiler Name Role Phone Po Belinda MARY Primary Care Physician [phone] [place] [facility] [place] - 09/16/[address] [address]- Attending Physician: Not on Staff, Attending MD [...] health services for DXs. Pt informed of [facility] services/declined - will call if services are needed. 5?bipolar 2 disorder; no meds/therapy currently Social History Social History Type Response Smoking Status Former smoker, quit more than 30 days ago entered on: 05/16/20 Sex Female
--- OUTSIDE RECORDS SUMMARY | 2023-01-26 10:44 | XMS_ITS | Continuity of Care Document ---
Author Name Unknown Organization [facility] Address [address] [place] [address]- Care Team Providers Care Superintendent Maintenance Airports Name Role Phone Po Belinda MARY Primary Care Physician Encounter [facility] [place] Date(s): 01/22/22 - 05/09/[address] [address]- Attending Physician: Not on Staff, Attending MD Allergies, Adverse Reactions, Alerts No Known Allergies Immunizations Given and Recorded Vaccine Date Status Refusal Reason tetanus/diphtheria/pertussis, acel(Tdap) 10/03/21 Given tetanus/diphtheria/pertussis, acel(Tdap) 09/28/20 Given Medications acetaminophen 325 mg oral tablet 650 mg, By Mouth, Every 4 hours, PRN, (1-3), may give 325mg per patient preference and re-dose [id number] within 4 hours, if needed. Patient should only receive a total of 650mg of Acetaminophen every 4 hours., Refills 0, Maintenance, Pain , Mild, 0... Start Date: 11/01/21 Status: Ordered Diflucan 150 mg oral tablet 1 tablet = 150 mg, By Mouth, Once, # 1 tablet, 0 Refills, Soft Stop, 01/23/22 18:05:00 EDT, [id number], Partial fill upon patient request if the [...] Pharmacy Electronically, [facility] [id number], 163, cm, 11/01/21 8:24:00 EST, Height, 85, [...] health services for DXs. Pt informed of [facility] services/declined - will call if services are needed. 2Urogyn Consult in CIS 3Patient reports during telehealth OBI visit that she is not currently engaged with Endo or any provider to help manage thyroid dysfunction. TSH level labs ordered. 4Patient reports during telehealth OBI visit that she is not currently engaged with Mental health services for DXs. Pt informed of [facility] services/declined - will call if services are needed. 5?bipolar 2 disorder; no meds/therapy currently Social History Social History Type Response Smoking Status Former smoker, quit more than 30 days ago entered on: 05/16/20 Sex
--- OUTSIDE RECORDS SUMMARY | 2023-01-26 10:45 | XMS_ITS | Continuity of Care Document ---
Author Name Unknown Organization [facility] Address [address] [place] [address]- Care Team Providers Care Automotive Window Tinter Name Role Phone Po Belinda MARY Primary Care Physician En[place] [facility] [place] Date(s): 04/17/22 - 05/17/[address] [address]- Attending Physician: Sara Bloom Admitting Physician: AdmSara huertas Referring Physician: AdmtrSara Allergies, Adverse Reactions, Alerts No Known Allergies Immunizations Given and Recorded Vaccine Date Status Refusal Reason tetanus/diphtheria/pertussis, acel(Tdap) 10/03/21 Given tetanus/diphtheria/pertussis, acel(Tdap) 09/28/20 Given Medications acetaminophen 325 mg oral tablet 650 mg, By Mouth, Every 4 hours, PRN, (1-3), may give 325mg per patient preference and re-dose [id number] within 4 hours, if needed. Patient should only receive a total of 650mg of Acetaminophen every 4 hours., Refills 0, Maintenance, Pain , Mild, 0... Start Date: 11/01/21 Status: Ordered Diflucan 150 mg oral tablet 1 tablet = 150 mg, By Mouth, Once, # 1 tablet, 0 Refills, Soft Stop, 01/23/22 18:05:00 EDT, [id number], Partial fill upon patient request if the [...] tablet, Refills 0, Route to Pharmacy Electronically, [facility] [id number], 163, cm, 11/01/21 8:24:00 EST, Height, 85, [...] 11 Refills, Maintenance, 06/16/21 16:02:00 EDT, Tablet, [facility]/pharmacy #[id number], dose changed, 163, cm, [...] 100 capsule, 2 Refills, Maintenance, 04/07/21 10:09:00EDT, [facility]/pharmacy #[id number], Partial fill upon patient [...] health services for DXs. Pt informed of [facility] services/declined - will call if services are needed. 2Urogyn Consult in CIS 3Patient reports during telehealth OBI visit that she is not currently engaged with Endo or any provider to help manage thyroid dysfunction. TSH level labs ordered. 4Patient reports during telehealth OBI visit that she is not currently engaged with Mental health services for DXs. Pt informed of [facility] services/declined - will call if services are needed. 5?bipolar 2 disorder; no meds/therapy currently Social History Social History Type Response Smoking Status Former smoker, quit more than 30 days ago entered on: 05/16/20 Sex
--- OUTSIDE RECORDS SUMMARY | 2023-01-26 10:45 | XMS_ITS | Continuity of Care Document ---
Author Name Unknown Organization [facility] Address [address] [place] [address]- Care Team Providers Care Central Office Frame Wirer Name Role Phone Po Belinda MARY Primary Care Physician [id number] Date(s): 10/03/21 - 01/07/[address] [address] Attending Physician: Not on Staff, Attending MD Allergies, Adverse Reactions, Alerts No Known Allergies Immunizations Given and Recorded Vaccine Date Status Refusal Reason tetanus/diphtheria/pertussis, acel(Tdap) 10/03/21 Given tetanus/diphtheria/pertussis, acel(Tdap) 09/28/20 Given Medications acetaminophen 325 mg oral tablet 650 mg, By Mouth, Every 4 hours, PRN, (1-3), may give 325mg per patient preference and re-dose [id number] within 4 hours, if needed. Patient should [...] tablet, Refills 0, Route to Pharmacy Electronically, [facility] [id number], 163, cm, 11/01/21 8:24:00 EST, Height, 85, [...] 11 Refills, Maintenance, 06/16/21 16:02:00 EDT, Tablet, [facility]/pharmacy #[id number], dose changed, 163, cm, 05/29/21 [...] informed of [facility] services/declined - will call if services are [...] informed of [facility] services/declined - will call if services are needed. 5?bipolar 2 disorder; no meds/therapy currently Social History Social History Type Response Smoking Status Former smoker, quit more than 30 days ago entered on: 05/16/20 Sex
--- OUTSIDE RECORDS SUMMARY | 2023-01-26 10:45 | XMS_ITS | Continuity of Care Document ---
Author Name Unknown Organization [facility] Address [address] [place] [address]- Care Team Providers Care Unemployment Inspector Name Role Phone Po Belinda MARY Primary Care Physician [phone] Encounter [facility] Date(s): 08/16/21 - 09/15/21 [facility] [address] [place] [address]- Allergies, Adverse Reactions, Alerts Substance Reaction Severity [...] services for DXs. Pt informed of [facility] services/declined - will call if services are needed. 5?bipolar 2 disorder; no meds/therapy currently Social History Social History Type Response Smoking Status Former smoker, quit more than 30 days ago entered on: 05/16/20 Sex Female
--- OUTSIDE RECORDS SUMMARY | 2023-01-26 10:45 | XMS_ITS | Continuity of Care Document ---
Author Name Unknown Organization [facility] Address [address] [place] [address]- Care Team Providers Care Requirements Manager Name Role Phone Po Belinda MARY Primary Care Physician [phone] Encounter [facility] Date(s): 09/09/20 - 10/09/[address] [address]- Allergies, Adverse Reactions, Alerts Substance Reaction Severity [...]
--- OUTSIDE RECORDS SUMMARY | 2023-01-26 10:45 | XMS_ITS | Continuity of Care Document ---
Author Name Unknown Organization [facility] Address [address] [place] [address]- Care Team Providers Care Mixer Helper Name Role Phone Po Belinda MARY Primary Care Physician [phone] [place] [facility] [place] 06/11/22 - 07/11/[address] [address]- Allergies, Adverse Reactions, Alerts No Known Allergies Immunizations Given and Recorded Vaccine Date Status Refusal Reason tetanus/diphtheria/pertussis, acel(Tdap) 10/03/21 Given tetanus/diphtheria/pertussis, acel(Tdap) 09/28/20 Given Medications acetaminophen 325 mg oral tablet 650 mg, By Mouth, Every 4 hours, PRN, (1-3), may give 325mg per patient preference and re-dose [id number] within 4 hours, if needed. Patient should only receive a total of 650mg of Acetaminophen every 4 hours., Refills 0, Maintenance, Pain , Mild, 0... Start Date: 11/01/21 Status: Ordered Diflucan 150 mg oral tablet 1 tablet = 150 mg, By Mouth, Once, # 1 tablet, 0 Refills, Soft Stop, 01/23/22 18:05:00 EDT, [id number], Partial fill upon patient request if the [...] tablet, Refills 0, Route to Pharmacy Electronically, [facility] 32282, 163, cm, 11/01/21 8:24:00 EST, Height, 85, [...] tablet, 3 Refills, Maintenance, 06/28/22 15:13:00 EDT, [facility] 66822, 163, cm, 04/17/22 12:28:00 EDT, Height, 85, [...] 100 capsule, 2 Refills, Maintenance, 04/07/21 10:09:00EDT, [facility]/pharmacy #[id number], Partial fill upon patient [...] health services for DXs. Pt informed of [facility] services/declined - will call if services are needed. 2Urogyn Consult in CIS 3Patient reports during telehealth OBI visit that she is not currently engaged with Endo or any provider to help manage thyroid dysfunction. TSH level labs ordered. 4Patient reports during telehealth OBI visit that she is not currently engaged with Mental health services for DXs. Pt informed of [facility] services/declined - will call if services are needed. 5?bipolar 2 disorder; no meds/therapy currently Social History Social History Type Response Smoking Status Former smoker, quit more than 30 days ago entered on: 05/16/20 Sex Patient Care team information Personnel Name: Belinda Helm MD Address: Address: [address] [place] [address]-
--- OUTSIDE RECORDS SUMMARY | 2023-01-26 10:45 | XMS_ITS | Continuity of Care Document ---
Author Name Unknown Organization [facility] Address [address] [place] [address]- Care Team Providers Care Survival Specialist Name Role Phone Milind MARY [OB], Itzel Azevedo Primary Care Physician [place] [facility] [place]14[place]21 - 03/16/21 [facility] [address] [address] Allergies, Adverse Reactions, Alerts Substance Reaction [...]
--- OUTSIDE RECORDS SUMMARY | 2023-01-26 10:45 | XMS_ITS | Continuity of Care Document ---
Author Name Unknown Organization [facility] Address [address] [place] [address]- Care Team Providers Care Funeral Car Driver Name Role Phone Po Belinda MARY Primary Care Physician Encounter [facility] [place] Date(s): 12/11/21 - 01/17/[address] [address] Attending Physician: Not on Staff, Attending MD Allergies, Adverse Reactions, Alerts No Known Allergies Immunizations Given and Recorded Vaccine Date Status Refusal Reason tetanus/diphtheria/pertussis, acel(Tdap) 10/03/21 Given tetanus/diphtheria/pertussis, acel(Tdap) 09/28/20 Given Medications acetaminophen 325 mg oral tablet 650 mg, By Mouth, Every 4 hours, PRN, (1-3), may give 325mg per patient preference and re-dose [id number] within 4 hours, if needed. Patient should [...] tablet, Refills 0, Route to Pharmacy Electronically, [facility] 94993, 163, cm, 11/01/21 8:24:00 EST, Height, 85, [...] 11 Refills, Maintenance, 06/16/21 16:02:00 EDT, Tablet, [facility]/pharmacy #[id number], dose changed, 163, cm, 05/29/21 9:58:00 [...] services for DXs. Pt informed of [facility] services/declined - will call if services are needed. 2Urogyn Consult in CIS 3Patient reports during telehealth OBI visit that she is not currently engaged with Endo or any provider to help manage thyroid dysfunction. TSH level labs ordered. 4Patient reports during telehealth OBI visit that she is not currently engaged with Mental health services for DXs. Pt informed of [facility] services/declined - will call if services are needed. 5?bipolar 2 disorder; no meds/therapy currently Social History Social History Type Response Smoking Status Former smoker, quit more than 30 days ago entered on: 05/16/20 Sex
--- OUTSIDE RECORDS SUMMARY | 2023-01-26 10:45 | XMS_ITS | Continuity of Care Document ---
Author Name Unknown Organization [facility] Address [address] [place] [address]- Care Team Providers Care Life Tester Outboard Motors Name Role Phone Po Belinda MARY Primary Care Physician En[facility] [place] Date(s): 10/29/21 - 11/01/[address] [address] Discharge Disposition: A-D/C Home Attending Physician: Gracy Keith DO Admitting Physician: Gracy Keith DO Referring Physician: Gracy Keith DO Allergies, Adverse Reactions, Alerts No Known Allergies Immunizations Given and Recorded Vaccine Date Status Refusal Reason tetanus/diphtheria/pertussis, acel(Tdap) 10/03/21 Given tetanus/diphtheria/pertussis, acel(Tdap) 09/28/20 Given Medications acetaminophen 325 mg oral tablet 650 mg, By Mouth, Every 4 hours, PRN, (1-3), may give 325mg per patient preference and re-dose [id number] within 4 hours, if needed. Patient should [...] 11 Refills, Maintenance, 06/16/21 16:02:00 EDT, Tablet, [facility]/pharmacy #[id number], dose changed, 163, cm, 05/29/21 [...] 100 capsule, 2 Refills, Maintenance, 04/07/21 10:09:00EDT, [facility]/pharmacy #[id number], Partial fill upon patient request [...] for DXs. Pt informed of [facility] services/declined - will call if services are needed. 2Urogyn Consult in CIS 3Patient reports during telehealth OBI visit that she is not currently engaged with Endo or any provider to help manage thyroid dysfunction. TSH level labs ordered. 4Patient reports during telehealth OBI visit that she is not currently engaged with Mental health services for DXs. Pt informed of [facility] services/declined - will call if services are needed. 5?bipolar 2 disorder; no meds/therapy currently Results Orders for Microbiology Reports Name Date Urine Culture 10/29/21 Microbiology Reports TEST:Urine Culture STATUS:Auth (Verified) BODY SITE: SOURCE:URINE COLLECTED DATE/TIME:10/29/21 8:05 PM Urine Culture SPECIMEN DESCRIPTION : URINE CLEAN CATCH/MIDSTREAM SPECIAL REQUESTS : NONE CULTURE : Mixed bacterial carmen, indicative of urogenital contamination. REPORT STATUS : FINAL 11/01/2021 Vital Signs Most recent to oldest [Reference Range]: 1 2 3 Height 163 cm (11/01/21 8:24 AM) 163 cm (10/31/21 9:26 PM) 163 cm (10/30/21 8:45 AM) Weight 85 kg (10/29/21 9:04 PM) 85 kg (10/29/21 6:20 PM) Oxygen Saturation [94-100 %] 98 % (10/30/21 2:30 AM) 100 % (10/30/21 1:58 AM) 100 % (10/30/21 1:56 AM) Pulse Rate [55-90 bpm] 63 bpm (11/01/21 8:24 AM) 79 bpm (10/30/21 10:15 PM) 80 bpm (10/30/21 4:55 PM) Body Mass Index [18.5-24.99] 31.99 *>HHI* (10/29/21 9:04 PM) Blood Pressure [90-138/55-84 mm Hg] 114/71mm Hg (11/01/21 8:24 AM) 112/65mm Hg (11/01/21 4:00 AM) 110/63mm Hg (10/31/21 9:28 PM) Respiratory Rate [16-30 br/min] 20 br/min (11/01/21 8:24 AM) 18 br/min (11/01/21 4:00 AM) 20 br/min (10/31/21 9:28 PM) Temperature [96.8-100.4 DegF] 97.8 DegF (11/01/21 8:24 AM) 98.8 DegF (11/01/21 4:00 AM) 98.7 DegF (10/31/21 9:28 PM) Mode of Delivery (Oxygen) Room air (10/29/21 6:34 PM) Blood pressure sites Arm, left (11/01/21 4:00 AM) Arm, left (10/31/21 9:28 PM) Arm, left (10/31/21 4:45 PM) Temperature Route Oral (11/01/21 8:24 AM) Oral (11/01/21 4:00 AM) Oral (10/31/21 9:28 PM) Dry Weight 85 kg (10/29/21 9:04 PM) 85 kg (10/29/21 6:20 PM) Social History Social History Type Response Smoking Status Former smoker, quit more than 30 days ago entered on: 05/16/20 Sex Female
--- OUTSIDE RECORDS SUMMARY | 2023-01-26 10:45 | XMS_ITS | Continuity of Care Document ---
Author Name Unknown Organization [facility] Address [address] [place] [address]- Care Team Providers Care Operational Trainer Name Role Phone Po Belinda MARY Primary Care Physician [phone] [place] [facility] [place]17[place] - 08/16/21 [facility] [address] [place] [address] Allergies, Adverse Reactions, Alerts Substance Reaction Severity Status NKA Active Immunizations Given and Recorded Vaccine Date Status Refusal Reason tetanus/diphtheria/pertussis, acel(Tdap) 09/28/20 Given Medications Flagyl 500 mg oral tablet 1 tablet = 500 mg, By Mouth, Every 12 hours, for 7 days, # 14 tablet, 0 Refills, Acute 08/23/21 16:54:00 EST, 08/16/21 16:54:00 EDT, [id number], Partial fill upon patient request if the prescription is for a schedule II opioid drug., 163, cm,... Start Date: 08/16/21 Stop Date: 08/23/21 Status: Ordered levothyroxine 125 mcg (0.125 mg) [...]
--- OUTSIDE RECORDS SUMMARY | 2023-01-26 10:45 | XMS_ITS | Continuity of Care Document ---
Author Name Unknown Organization [facility] Address [address] [place] [address]- Care Team Providers Care Communication Lecturer Name Role Phone Luis Fernando MARY, Mina Primary Care Physician En[place] [facility] [place] Date(s): 06/30/20 - 07/30/20 [facility] [address] [address]- [facility] Allergies, Adverse Reactions, Alerts Substance [...]
--- OUTSIDE RECORDS SUMMARY | 2023-01-26 10:45 | XMS_ITS | Continuity of Care Document ---
Author Name Unknown Organization [facility] Address [address] [place] [address]- Care Team Providers Care Capsule Filling Machine Operator Name Role Phone Po Belinda MARY Primary Care Physician [id number] Date[facility] 10/03/21 - 12/31/[address] [address] Attending Physician: Not on Staff, Attending MD Allergies, Adverse Reactions, Alerts No Known Allergies Immunizations Given and Recorded Vaccine Date Status Refusal Reason tetanus/diphtheria/pertussis, acel(Tdap) 10/03/21 Given tetanus/diphtheria/pertussis, acel(Tdap) 09/28/20 Given Medications acetaminophen 325 mg oral tablet 650 mg, By Mouth, Every 4 hours, PRN, (1-3), may give 325mg per patient preference and re-dose [id number] within 4 hours, if needed. Patient should [...] tablet, Refills 0, Route to Pharmacy Electronically, [facility] 22789, 163, cm, 11/01/21 8:24:00 EST, Height, 85, [...] 11 Refills, Maintenance, 06/16/21 16:02:00 EDT, Tablet, [facility]/pharmacy #[id number], dose changed, 163, [...]
--- OUTSIDE RECORDS SUMMARY | 2023-01-26 10:45 | XMS_ITS | Continuity of Care Document ---
Author Name Unknown Organization [facility] Address [address] [place] [address]- Care Team Providers Care Marketing Analytics Lead Name Role Phone Po Belinda MARY Primary Care Physician En[place] [facility] [place] Date(s): 01/23/22 - 02/22/[address] [address] Allergies, Adverse Reactions, Alerts No Known Allergies Immunizations Given and Recorded Vaccine Date Status Refusal Reason tetanus/diphtheria/pertussis, acel(Tdap) 10/03/21 Given tetanus/diphtheria/pertussis, acel(Tdap) 09/28/20 Given Medications acetaminophen 325 mg oral tablet 650 mg, By Mouth, Every 4 hours, PRN, (1-3), may give 325mg per patient preference and re-dose [id number] within 4 hours, if needed. Patient should only receive a total of 650mg of Acetaminophen every 4 hours., Refills 0, Maintenance, Pain , Mild, 0... Start Date: 11/01/21 Status: Ordered Diflucan 150 mg oral tablet 1 tablet = 150 mg, By Mouth, Once, # 1 tablet, 0 Refills, Soft Stop, 01/23/22 18:05:00 EDT, [id number], Partial fill upon patient request if the [...] tablet, Refills 0, Route to Pharmacy Electronically, [facility] 21940, 163, cm, 11/01/21 8:24:00 EST, Height, 85, [...]
--- OUTSIDE RECORDS SUMMARY | 2023-01-26 10:45 | XMS_ITS | Continuity of Care Document ---
Author Name Unknown Organization [facility] Address [address] [place] [address]- Care Team Providers Care Auctioneer Art Name Role Phone Milind MARY [OB], Itzel Azevedo Primary Care Physician En[place] [facility] [place] Date(s): 04/18/21 - 05/18/21 [facility] [address] [place], [place] [address] Allergies, Adverse Reactions, Alerts Substance Reaction [...]
--- OUTSIDE RECORDS SUMMARY | 2023-01-26 10:45 | XMS_ITS | Continuity of Care Document ---
Author Name Unknown Organization [facility] Address [address] [place] [address]- Care Team Providers Care Agriscience Technology Instructor Name Role Phone Po Belinda MARY Primary Care Physician [place] [facility] [place] 02/28/22 - 03/30/[address] [address] Allergies, Adverse Reactions, Alerts No Known Allergies Immunizations Given and Recorded Vaccine Date Status Refusal Reason tetanus/diphtheria/pertussis, acel(Tdap) 10/03/21 Given tetanus/diphtheria/pertussis, acel(Tdap) 09/28/20 Given Medications acetaminophen 325 mg oral tablet 650 mg, By Mouth, Every 4 hours, PRN, (1-3), may give 325mg per patient preference and re-dose [id number] within 4 hours, if needed. Patient should only receive a total of 650mg of Acetaminophen every 4 hours., Refills 0, Maintenance, Pain , Mild, 0... Start Date: 11/01/21 Status: Ordered Diflucan 150 mg oral tablet 1 tablet = 150 mg, By Mouth, Once, # 1 tablet, 0 Refills, Soft Stop, 01/23/22 18:05:00 EDT, [id number], Partial fill upon patient request if the [...] tablet, Refills 0, Route to Pharmacy Electronically, [facility] 53474, 163, cm, 11/01/21 8:24:00 EST, Height, 85, [...] 11 Refills, Maintenance, 06/16/21 16:02:00 EDT, Tablet, [facility]/pharmacy #[id number], dose changed, 163, [...] 100 capsule, 2 Refills, Maintenance, 04/07/21 10:09:00EDT, [facility]/pharmacy #[id number], Partial fill upon patient [...]
--- OUTSIDE RECORDS SUMMARY | 2023-01-26 10:45 | XMS_ITS | Continuity of Care Document ---
Author Name Unknown Organization [facility] Address [address] [place] [address]- Care Team Providers Care Financial Foundations Representative Name Role Phone Milind MARY, Itzel Azevedo Primary Care Physician [phone] Encounter [facility] [place] Date(s): 10/25/20 - 11/24/[address] [address] Allergies, Adverse Reactions, Alerts Substance [...]
--- OUTSIDE RECORDS SUMMARY | 2023-01-26 10:45 | XMS_ITS | Continuity of Care Document ---
Author Name Unknown Organization [facility] Address [address] [place] [address]- Care Team Providers Care Program Eligibility Specialist Name Role Phone Milind MARY [OB], Itzel Azevedo Primary Care Physician [id number] Date[facility] 01/23/21 - 04/08/[address] [address]- Attending Physician: Abril Britton CNM Admitting Physician: Abril Britton CNM Allergies, Adverse Reactions, Alerts Substance Reaction Severity Status NKA Active Immunizations Given and Recorded Vaccine Date Status Refusal Reason tetanus/diphtheria/pertussis, acel(Tdap) 09/28/20 Given Medications Multivitamins with Folic Acid 1 mg oral capsule See Instructions, TAKE ONE DAILY BY MOUTH, # 100 capsule, 2 Refills, Maintenance, 04/07/21 10:09:00EDT, [facility]/pharmacy #[id number], Partial fill upon patient request if the [...]
--- OUTSIDE RECORDS SUMMARY | 2023-01-26 10:45 | XMS_ITS | Continuity of Care Document ---
Author Name Unknown Organization [facility] ter Address [address] [place] [address]- Care Team Providers Care Commodities Clerk Name Role Phone Po Belinda MARY Primary Care Physician Encounter [facility] [place] Date(s): 10/25/21 - 10/25/[address] [address]- Discharge Disposition: A-D/C Home Attending Physician: Gabo Sellers MD Admitting Physician: Gabo Sellers MD Referring Physician: Gabo Sellers MD Allergies, Adverse Reactions, Alerts Substance Reaction Severity Status NKA Active Immunizations Given and Recorded Vaccine Date Status Refusal Reason tetanus/diphtheria/pertussis, acel(Tdap) 10/03/21 Given tetanus/diphtheria/pertussis, acel(Tdap) 09/28/20 Given Medications famotidine 20 mg oral tablet 20 mg, 1, tablet, By Mouth, 2 times a day, # 180 tablet, Refills 0, Tot. Refills 0, Maintenance, 09/25/21 14:02:00 EST, Route to Pharmacy Electronically, [facility]/pharmacy #[id number], Partial fill upon patientrequest if the prescription is for a schedule II op... Start Date: 09/25/21 Status: Ordered levothyroxine 125 mcg (0.125 mg) oral tablet 1 tablet = 125 mcg, By Mouth, Daily, # 30 tablet, 11 Refills, Maintenance, 06/16/21 16:02:00 EDT, Tablet, [facility]/pharmacy #[id number], dose changed, 163, cm, [...] 100 capsule, 2 Refills, Maintenance, 04/07/21 10:09:00EDT, [facility]/pharmacy #[id number], Partial fill upon patient [...] services for DXs. Pt informed of [facility] services/declined - will call if services are needed. 2Urogyn Consult in [facility] 3Patient reports during telehealth OBI visit that she is not currently engaged with [facility] or any provider to help manage thyroid dysfunction. TSH level labs ordered. 4Patient reports during telehealth OBI visit that she is not currently engaged with Mental health services for DXs. Pt informed of [facility] services/declined - will call if services are needed. 5?bipolar 2 disorder; no meds/therapy currently Vital Signs Most recent to oldest [Reference Range]: 1 Weight 84.5 kg (10/25/21 10:40 AM) Oxygen Saturation [94-100 %] 98 % (10/25/21 10:40 AM) Blood Pressure [90-138/55-84 mm Hg] 117/ 73mm Hg (10/25/21 10:40 AM) Respiratory Rate [16-30 br/min] 16 br/mi n (10/25/21 10:32 AM) Temperature [96.8-100.4 DegF] 98.4 DegF (10/25/21 10:42 AM) Mode of Delivery (Oxygen) Room air (10/25/21 10:40 AM) Blood pressure sites Arm, right (10/25/21 10:40 AM) Temperature Route Oral (10/25/21 10:42 AM) Dry Weight 84.5 kg (10/25/21 10:40 AM) Weight Obtained Via Standing scale (10/25/21 10:40 AM) Dry Weight Obtained Via Standing scale (10/25/21 10:40 AM) Social History Social History Type Response Smoking Status Former smoker, quit more than 30 days ago entered on: 05/16/20 Sex Female
--- OUTSIDE RECORDS SUMMARY | 2023-01-26 10:45 | XMS_ITS | Continuity of Care Document ---
Author Name Unknown Organization [facility] Address [address] [place] [address]- Care Team Providers Care Pipe Fittings Molder Name Role Phone Luis Fernando MARY, Mina Primary Care Physician Encounter [facility] Date(s): 06/15/20 - 07/15/20 [facility] [address] [address]- [facility] Allergies, Adverse Reactions, Alerts Substance Reaction [...]
--- OUTSIDE RECORDS SUMMARY | 2023-01-26 10:45 | XMS_ITS | Continuity of Care Document ---
Author Name Unknown Organization [facility] Address [address] [place] [address]- Care Team Providers Care Dry Plasterer Helper Name Role Phone Po Belinda MARY Primary Care Physician [phone] [id number] Date(s): 11/06/21 - 12/13/[address] [address]- Attending Physician: Not on Staff, Attending MD Allergies, Adverse Reactions, Alerts No Known Allergies Immunizations Given and Recorded Vaccine Date Status Refusal Reason tetanus/diphtheria/pertussis, acel(Tdap) 10/03/21 Given tetanus/diphtheria/pertussis, acel(Tdap) 09/28/20 Given Medications acetaminophen 325 mg oral tablet 650 mg, By Mouth, Every 4 hours, PRN, (1-3), may give 325mg per patient preference and re-dose [id number] within 4 hours, if needed. Patient should [...] health services for DXs. Pt informed of [facility] services/declined - will call if services are needed. 5?bipolar 2 disorder; no meds/therapy currently Social History Social History Type Response Smoking Status Former smoker, quit more than 30 days ago entered on: 05/16/20 Sex
--- OUTSIDE RECORDS SUMMARY | 2023-01-26 10:45 | XMS_ITS | Continuity of Care Document ---
Author Name Unknown Organization [facility] Address [address] [place] [address]- Care Team Providers Care Field Technical Assistant Name Role Phone Po Belinda MARY Primary Care Physician [phone] Encounter [facility] [place] [place] Date(s): 08/12/21 - 12/10/[address] [address] Attending Physician: Not on Staff, Attending MD Allergies, Adverse Reactions, Alerts No Known Allergies Immunizations Given and Recorded Vaccine Date Status Refusal Reason tetanus/diphtheria/pertussis, acel(Tdap) 10/03/21 Given tetanus/diphtheria/pertussis, acel(Tdap) 09/28/20 Given Medications acetaminophen 325 mg oral tablet 650 mg, By Mouth, Every 4 hours, PRN, (1-3), may give 325mg per patient preference and re-dose [id number] within 4 hours, if needed. Patient should [...] health services for DXs. Pt informed of [facility] services/declined - will call if services are needed. 5?bipolar 2 disorder; no meds/therapy currently Social History Social History Type Response Smoking Status Former smoker, quit more than 30 days ago entered on: 05/16/20 Sex
--- OUTSIDE RECORDS SUMMARY | 2023-01-26 10:45 | XMS_ITS | Continuity of Care Document ---
Author Name Unknown Organization [facility] Address [address] [place] [address]- Care Team Providers Care Product Applications Engineer Name Role Phone Milind MARY [OB], Itzel Azevedo Primary Care Physician ( [phone] Encounter [facility] [place] Date(s): 05/25/21 - 06/24/[address] [address]- Allergies, Adverse Reactions, Alerts Substance Reaction Severity [...] health services for DXs. Pt informed of [facility] services/declined - will call if services are needed. 2Urogyn Consult in [facility] 3Patient reports during telehealth OBI visit that she is not currently engaged with Endo or any provider to help manage thyroid dysfunction. TSH level labs ordered. 4Patient reports during telehealth OBI visit that she is not currently engaged with Mental health services for DXs. Pt informed of [facility] services/declined - will call if services are needed. 5?bipolar 2 disorder; no meds/therapy currently Social History Social History Type Response Smoking Status Former smoker, quit more than 30 days ago entered on: 05/16/20 Sex
--- OUTSIDE RECORDS SUMMARY | 2023-01-26 10:45 | XMS_ITS | Continuity of Care Document ---
Author Name Unknown Organization [facility] ter Address [address] [place] [address]- Care Team Providers Care Sheetmetal Trades Worker Name Role Phone Po Belinda MARY Primary Care Physician En[place] [facility] [place] Date(s): 08/15/21 - 08/15/[address] [address] Discharge Disposition: A-D/C Home Attending Physician: Milind [...] health services for DXs. Pt informed of [facility] services/declined - will call if services are needed. 5?bipolar 2 disorder; no meds/therapy currently Vital Signs Most recent to oldest [Reference Range]: 1 Weight 81.7 kg (08/15/21 1:44 PM) Blood Pressure [90-138/55-84 mm Hg] 105/ 64mm Hg (08/15/21 1:44 PM) Respiratory Rate [16-30 br/min] 18 br/mi n (08/15/21 1:44 PM) Temperature [96.8-100.4 DegF] 97.5 DegF (08/15/21 1:44 PM) Social History Social History Type Response Smoking Status Former smoker, quit more than 30 days ago entered on: 05/16/20 Sex Female
--- OUTSIDE RECORDS SUMMARY | 2023-01-26 10:45 | XMS_ITS | Continuity of Care Document ---
Author Name Unknown Organization [facility] Address [address] [place] [address]- Care Team Providers Care Road Roller Engineer Name Role Phone Luis Fernando MARY, Mina Primary Care Physician Encounter [facility] [place] Date(s): 03/29/20 - 04/29/[address] [address]- [facility] Attending Physician: Not on Staff, Attending [...] 3 Refills, Maintenance, 04/08/20 10:10:00 EDT, Tablet, [facility]/pharmacy #[id number], 1 tablet By Mouth Daily, 168, cm, 11/11/19 10:21:00 EST, Height, 72.6, kg, 01/29/19 18:47:00 EDT, Dry Weight Start Date: 04/08/20 Status: Ordered pyridoxine 25 mg oral tablet 1 tablet = 25 mg, By Mouth, 3 times a day, PRN Nausea & Vomiting, Take with Doxylamine, # 90 tablet, 0 Refills, Acute 05/20/20 15:32:00 EDT, 04/19/20 15:32:00 EDT, [facility]/pharmacy #[id number], 168, cm, 11/11/19 10:21:00 EST, Height, 72.6, kg, 01/29/19 18:47:00... Start Date: 04/19/20 Stop Date: 05/20/20 Status: Ordered Social History Social History Type Response Tobacco Use: 4 or less cigar ettes(less than 1/4 pack)/day in last 30 days. Sex
--- OUTSIDE RECORDS SUMMARY | 2023-01-26 10:45 | XMS_ITS | Continuity of Care Document ---
Author Name Unknown Organization [facility] Address [address] [place] [address]- Care Team Providers Care Home Demonstration Agent Name Role Phone Po Belinda MARY Primary Care Physician Encounter [facility] [place] Date(s): 10/11/21 - 11/10/[address] [address] Allergies, Adverse Reactions, Alerts No Known Allergies Immunizations Given and Recorded Vaccine Date Status Refusal Reason tetanus/diphtheria/pertussis, acel(Tdap) 10/03/21 Given tetanus/diphtheria/pertussis, acel(Tdap) 09/28/20 Given Medications acetaminophen 325 mg oral tablet 650 mg, By Mouth, Every 4 hours, PRN, (1-3), may give 325mg per patient preference and re-dose [id number] within 4 hours, if needed. Patient should [...] that she is not currently engaged with [facility] or any provider to help manage [...]
--- OUTSIDE RECORDS SUMMARY | 2023-01-26 10:46 | XMS_ITS | Continuity of Care Document ---
Author Name Unknown Organization [facility] [address] [employer] [employer] [facility] Address [address], [address] [place] [address]- Care Team Providers Care Senior Compensation Analyst Name Role Phone Po Belinda MARY Primary Care Physician [phone] Encounter [facility] [place] Date(s): 09/11/21 - 10/11/21 [facility] [employer] [facility] [address] [place], [place] [address] Allergies, Adverse Reactions, Alerts Substance Reaction Severity Status NKA Active Immunizations Given and Recorded Vaccine Date Status Refusal Reason tetanus/diphtheria/pertussis, acel(Tdap) 10/03/21 Given tetanus/diphtheria/pertussis, acel(Tdap) 09/28/20 Given Medications famotidine 20 mg oral tablet 20 mg, 1, tablet, By Mouth, 2 times a day, # 180 tablet, Refills 0, Tot. Refills 0, Maintenance, 09/25/21 14:02:00 EST, Route to Pharmacy Electronically, [facility]/pharmacy #[id number], Partial fill upon patientrequest if the prescription [...] Maintenance, 04/07/21 10:09:00EDT, [facility]/pharmacy #[id number], Partial fill upon patient request if the [...] health services for DXs. Pt informed of [facility] services/declined - will call if services are needed. 2Urogyn Consult in [facility] 3Patient reports during telehealth OBI visit that she is not currently engaged with Endo or any provider to help manage thyroid dysfunction. TSH level labs ordered. 4Patient reports during telehealth OBI visit that she is not currently engaged with Mental health services for DXs. Pt informed of [facility] services/declined - will call if services are needed. 5?bipolar 2 disorder; no meds/therapy currently Social History Social History Type Response Smoking Status Former smoker, quit more than 30 days ago entered on: 05/16/20 Sex Female
[2023-01-26] MEDS: HYDROmorphone HCl 0.5 MG/0.5 ML SYRINGE IVPUSH (11:01)
[2023-01-26] MEDS: ondansetron HCL 4 MG/2 ML VIAL IVPUSH (11:03)
[2023-01-26 11:17] LABS: Appearance Urine Turbid; Color Urine Dark Yellow; Glucose Urine UA Negative (Negative); Leukocyte Esterase Urine Small (1+) (Negative); Nitrite Urine Positive (Negative); PH 5.5 (5.0-9.0); Specific Gravity - Urine >= 1.030 (1.005-1.025); UMIC TRIGGER UACC YES; Urine Blood Large (3+) (Negative); Urine Ketones 40 mg/dL (Negative); Urine Protein 30 (1+) mg/dL (Neg-Trace)
[2023-01-26 11:19] LABS: UPreg QC Valid YES; Urine Pregnancy NEGATIVE (NEGATIVE)
[2023-01-26 11:31] LABS: Bacteria Urine None Seen (None Seen); Hyaline Casts Urine 0-2 /LPF (0-2); Other Crystals Urine Present; RBC Urine >20 /HPF (0-2); Squamous Epithelial Cell Urine 0-2 /HPF (0-2); UACC Culture Trigger YES
--- NOTE | 2023-01-26 12:25 | PC.NURSE ---
Spoke with quality control tech raw materials, filled out screening form. Tech states that they will be here in approximately 30 minutes.
--- NOTE | 2023-01-26 12:35 | P.HPHOSP_ITS ---
History of Present Illness Date of Service: 01/26/23 Attending physician on admission: Ortiz Gordon Chief Complaint: epigastric pain, n/v 32-year-old female with history of hypothyroidism presents to the ED for evaluation of abdominal pain that has been ongoing for 1 week and has been p rogressively worsening. She is reporting epigastric pain that radiates bilaterally across the upper abdomen. She states it is currently rated as an 8/10 in the right upper quadrant / epigastric area but was a 10/10 on arrival. There is associated nausea, vomiting, chills, sweats. She states she feels hungry but is hesitant to eat due to the persistent vomiting. No history of similar symptoms. She does use marijuana on daily basis but denies any alcohol use or cigarette smoking. No illicit drug use. On arrival, vital signs stable. No leukocytosis. Renal function and electrolyte levels normal. Has significant transaminitis with AST 567, ALT 1185, direct bilirubin 1.9, total bilirubin 2.7. UA with 1+ leuks, +nitrites, no significant urinary sediment, and no bacteria. Abd U/S shows cholelithiasis with gallbladder wall thickening and trace pericholecystic fluid and mildly dilated bile duct to 1.0 cm. There was a positive sonographic Gaxiola sign noted. ED discussed case with general surgery and gastroenterology recommending admission to medicine for MRCP. Review of Systems Review of Systems: General: No fevers, malaise, unintentional weight loss HEENT: No blurred vision, diplopia. No sore throat, nasal congestion, rhinorrhea, sinus pain, ear pain Cardiovascular: No chest pain, palpitations, or leg edema Respiratory: No shortness of breath, wheezing, cough GI: +abd pain, +n/v. No diarrhea, constipation, melena, hematochezia : No dysuria, hematuria, increased urinary frequency, decreased urinary output MSK: No myalgia, back pain Neuro: No headaches, weakness, paresthesias Skin: No rashes or lesions [facility] Medical History (Updated 01/26/23 @ 12:45 by RUDY Valverde) Hypothyroidism Social History Alcohol intake: never Patient Tobacco Use Status: Never used Tobacco Smoked in Last 30 Days: No Use of substances other than those prescribed or required for medical reasons: Yes Substance Use Type: Marijuana Advance Directives: No Advance Directives Information Provided: Yes Patient : No Meds Allergies Allergy/AdvReac Type Severity Reaction Status Date / Time No Known Allergies Allergy Mild UNKNOWN Verified 08/03/21 15:06 Active Medications: Current Medications Enoxaparin Sodium (Enoxaparin Sodium 40 Mg/0.4 Ml Syringe) 40 mg SUBCUT Q24H ORESTES Sodium Chloride (Ns) 1,000 mls @ 200 mls/hr IVCONT .Q5H ORESTES Ondansetron HCl (Ondansetron Hcl 4 Mg/2 Ml Vial) 4 mg IVPUSH Q8H PRN PRN Reason: Nausea and Vomiting Sodium Chloride (0.9 % Sodium Chloride Flush 3 Ml Syringe) 3 ml IVFLUSH QSHIFT ORESTES Physical Exam Vital Signs and Narrative: Vital Signs: Last Vital Signs Temp 97.7 F 01/26/23 10:03 Pulse 56 01/26/23 10:03 Resp 18 01/26/23 10:03 BP 115/59 L 01/26/23 10:03 Pulse Ox 99 01/26/23 10:03 O2 Del Method Room Air 01/26/23 10:03 BMI result Body Mass Index 32.9 Results Labs 01/26/23 09:57 01/26/23 09:56 Labs: Laboratory Results - last 24 hr 01/26/23 01/26/23 01/26/23 09:56 09:57 10:09 MCV 97.5 MCH 32.7 MCHC 33.5 RDW 12.5 Plt Count 346 MPV 10.5 Immature Gran % (Auto) 0.3 Neut % (Auto) 73.9 H Lymph % (Auto) 18.4 L Becker % (Auto) 5.7 Eos % (Auto) 1.0 Baso % (Auto) 0.7 Lymph # (Auto) 1.4 Becker # (Auto) 0.4 Eos # (Auto) 0.1 Baso # (Auto) 0.1 Abs Immat Gran (auto) 0.02 Absolute Neuts (auto) 5.4 Absolute Nucleated RBC 0.000 Nucleated RBC % (auto) 0.0 Anion Gap 12 Estim Creat Clear Calc 117.0 Estimated GFR > 60 Random Glucose 112 Calcium 9.1 Total Bilirubin 2.7 H Direct Bilirubin 1.9 H AST 567 H ALT 1185 H Alkaline Phosphatase 222 H Total Protein 7.0 Albumin 4.3 Lipase 21 Beta HCG, Quant < 2 Urine Color Urine Appearance Urine pH Ur Specific [place] Urine Protein Urine Glucose (UA) Urine Ketones Urine Blood Urine Nitrite Ur Leukocyte Esterase Urine RBC Urine WBC Ur Squamous Epith Cells Other Crystals Urine Bacteria Hyaline Casts Urine Test 01/26/23 01/26/23 11:07 11:07 MCV MCH MCHC RDW Plt Count MPV Immature Gran % (Auto) Neut % (Auto) Lymph % (Auto) Becker % (Auto) Eos % (Auto) Baso % (Auto) Lymph # (Auto) Becker # (Auto) Eos # (Auto) Baso # (Auto) Abs Immat Gran (auto) Absolute Neuts (auto) Absolute Nucleated RBC Nucleated RBC % (auto) Anion Gap Estim Creat Clear Calc Estimated GFR Random Glucose Calcium Total Bilirubin Direct Bilirubin AST ALT Alkaline Phosphatase Total Protein Albumin Lipase Beta HCG, Quant Urine Color Dark Yellow Urine Appearance Turbid Urine pH 5.5 Ur Specific [place] >= 1.030 H Urine Protein 30 (1+) H Urine Glucose (UA) Negative Urine Ketones 40 Urine Blood Large (3+) H Urine Nitrite Positive H Ur Leukocyte Esterase Small (1+) H Urine RBC >20 H Urine WBC 6-10 Ur Squamous Epith Cells 0-2 Other Crystals Present Urine Bacteria None Seen Hyaline Casts 0-2 Urine Test NEGATIVE Imaging Radiologist's Impressions: Impressions Abdomen Ultrasound 01/26/23 10:28 IMPRESSION: 1. Cholelithiasis with gallbladder wall thickening, trace pericholecystic free fluid, and positive sonographic Gaxiola sign. Findings can be seen in the setting of acute cholecystitis. 2. Mildly dilated common bile duct measuring up to 1.0 cm. No visualized choledocholithiasis, however, a distal ductal stone cannot be excluded. Assessment and Plan Time Spent With Patient Time: Total time managing care of this patient today ____ minutes. Quality VTE VTE Risk Level:: Medical - moderate - high VTE Device Contraindication: Treatment Not Indicated VTE Drug Contraindication: N/A - Med Ordered
[2023-01-26] MEDS: iohexoL 350 MG/ML 100 ML INFUS..BTL IV (12:40)
--- NOTE | 2023-01-26 12:50 | PM.HPGS ---
History of Present Illness History of Present Illness Date of Service: 01/26/23 Chief complaint: Abd pain per EMS Narrative: Pascale Dooley is a 32 year old female who is seen at the request of Dr. Reddy because of upper abdominal and back pain in the setting of gallstones and a 10 mm CBD. Patient is tearful in notes that about 5 days ago, on Saturday, she was experiencing upper back and upper abdominal pain radiating to her left and right upper quadrant. The pain is continued to progress and she came by ambulance to the emergency department. Prior to this week, she denies any prior history of symptoms. She further denies any risk factors for hepatitis including IVDA. Review of Systems Review of Systems: Yes all other systems are reviewed and are negative Constitutional: Constitutional: Reports as per [facility] Past Medical History Medical History Hypothyroidism Social History Social History Alcohol intake: never Patient Tobacco Use Status: Never used Tobacco Substance Use Type: Marijuana Meds Allergies Allergy/AdvReac Type Severity Reaction Status Date / Time No Known Allergies Allergy Mild UNKNOWN Verified 08/03/21 15:06 Active Medications: Current Medications Docusate Sodium (Docusate Sodium 100 Mg Capsule) 100 mg PO DAILY PRN PRN Reason: Constipation Enoxaparin Sodium (Enoxaparin Sodium 40 Mg/0.4 Ml Syringe) 40 mg SUBCUT Q24H ORESTES Sodium Chloride (Ns) 1,000 mls @ 200 mls/hr IVCONT .Q5H ORESTES Ketorolac Tromethamine (Ketorolac Tromethamine 30 Mg/Ml Vial) 30 mg IVPUSH Q6H PRN PRN Reason: Pain, Moderate (Pain Scale 4-6 Stop: 01/31/23 12:29 Morphine Sulfate (Morphine Sulfate 4 Mg/Ml Cartridge) 2 mg IVPUSH Q4H PRN; Protocol PRN Reason: Pain, Severe (Pain Scale 7-10) Ondansetron HCl (Ondansetron Hcl 4 Mg/2 Ml Vial) 4 mg IVPUSH Q8H PRN PRN Reason: Nausea and Vomiting Pharmacy Consult (Consult Rx Perform Med Rec) 1 each MISCELLANE ONCE PRN PRN Reason: Consult order Sodium Chloride (0.9 % Sodium Chloride Flush 3 Ml Syringe) 3 ml IVFLUSH QSHIFT [facility] Home Medications Medication Instructions Recorded Confirmed Last Taken Type levothyroxine 125 mcg tablet 125 mcg PO DAILY 01/26/23 01/26/23 Unknown History Physical Exam Vital Signs: Vital Signs: Last Vital Signs Temp 97.7 F 01/26/23 10:03 Pulse 56 01/26/23 10:03 Resp 18 01/26/23 10:03 BP 115/59 L 01/26/23 10:03 Pulse Ox 99 01/26/23 10:03 O2 Del Method Room Air 01/26/23 10:03 BMI result Body Mass Index 32.9 The patient is non-toxic & in good spirits NC/AT, PERRLA, EOMI Mood, affect & judgment all appear appropriate Sclera anicteric conjunctiva pink and moist Oropharynx is clear with no aphthous ulcers, Mallampati class 4, mucous membranes moist Neck is supple with no masses, adenopathy or bruits Thyroid is nontender and free of dominant masses Heart is regular, normal S1-S2 no rubs or murmurs Lungs are clear and equal anteriorly with no audible wheezing, rubs or dullness to percussion Abdomen is obese with no demonstrable hernias. She has some epigastric and right upper quadrant discomfort but no peritoneal sign and no guarding. No HSM, rebound, rigidity, guarding, masses or bruits are present. Rectal exam is deferred Skin has good turgor and is free of rashes Extremities free of cyanosis clubbing edema Results Results Labs: Short CBC 01/26/23 Range/Units 09:57 WBC 7.3 (4.8-10.8) X10*3/uL Hgb 14.4 (12.0-16.0) g/dl Hct 43.0 (37.0-47.0) % Plt Count 346 (160-400) X10*3/uL BMP 01/26/23 09:56 Sodium 143 Potassium 3.9 Chloride 110 H Carbon Dioxide 25 BUN 11 Creatinine 0.73 Calcium 9.1 Liver Function 01/26/23 Range/Units 09:56 Total Bilirubin 2.7 H (0.0-1.0) mg/dL Direct Bilirubin 1.9 H (0.0-0.5) mg/dL AST 567 H (5-31) U/L ALT 1185 H (0-31) U/L Alkaline Phosphatase 222 H (39-117) U/L Albumin 4.3 (3.5-5.0) g/dL Urine 01/26/23 01/26/23 Range/Units 11:07 11:07 Urine Color Dark Yellow Urine Appearance Turbid Urine pH 5.5 (5.0-9.0) Ur Specific [place] >= 1.030 H (1.005-1.025) Urine Protein 30 (1+) H (Neg-Trace) mg/dL Urine Glucose (UA) Negative (Negative) mg/dL Urine Test NEGATIVE (NEGATIVE) Abdomen CT scan report/results: image reviewed CT scan - pelvis: image reviewed Abdominal ultrasound report/results: report reviewed and image reviewed Additional studies: In my interpretation of the CT results, there is intrahepatic ductal dilation down to the head of the pancreas but no stone is visualized. There is no hepatic edema or portal edema suggestive of hepatitis. Assessment and Plan (1) Choledocholithiasis: Status: Acute (2) Cholecystitis: Status: Acute (3) Elevated LFTs: Status: Acute (4) Morbid (severe) obesity due to excess calories: Status: Acute Plan NPO and IV fluid Await MRCP Trend labs May need official GI evaluation and consideration for ERCP if the LFTs do not normalize are MRCP demonstrates choledocholithiasis requiring intervention. Time Spent With Patient Time: Total time managing care of this patient today ____ minutes. Quality Stroke Does the patient have a stroke diagnosis?: No VTE Prior VTE?: No VTE Risk Level:: Medical - moderate - high VTE Device Contraindication: Treatment Not Indicated VTE Drug Contraindication: N/A - Med Ordered Procedures Date of Service Date of Service: 01/26/23
--- NOTE | 2023-01-26 12:51 | PHA.MEDREC ---
Addendum entered by Norma Song RPh 01/26/23 12:57: [facility] Original Note: Pharmacy Consult ? Medication Reconciliation Pharmacy has completed the medication reconciliation. spoke with patient. Only takes levothyroxine 125 mcg but she has not taken it since her symptoms started to occur.
--- NOTE | 2023-01-26 13:18 | PC.NURSE ---
Patient place blongings in bag including a yellow metal chain, a pair of yellow metal earrings, and $360 in reyes counted with patient and this nurse.
--- NOTE | 2023-01-26 13:42 | PC.NURSE ---
Patient went to MRI for MRCP accompanied by rim technician.
[2023-01-26] MEDS: Ampicillin Sodium 2 GM in 0.9 % Sodium Chloride 100 ML IV ×3 (14:07→21:53)
[2023-01-26] MEDS: Heparin Sodium,Porcine 5,000 UNIT/ML VIAL 5000 UNIT SUBCUT (14:07)
[2023-01-26] MEDS: Lactated Ringers 1,000 ML 100 ML IVCONT (15:37)
--- NOTE | 2023-01-26 15:51 | PC.NURSE ---
VITAL SIGNS: BP:104/63 HR: 58 O2: 98% RR: 18
--- NOTE | 2023-01-26 15:52 | P.CNGI_ITS ---
History of Present Illness Data of Consult Service Date: 01/26/23 Requesting physician: Da Reddy Primary Care Provider: Unknown Physician HPI Reason for consult: abdo pain 32 yr old f with hypothyroidism, being seen for abdominal pain She had 1 week of worsening colicky and crampy abdominal pain in epigastrium with radiation into the back finally came to the ED as it got much worse 10/10 and associated with nausea and non bloody emesis and made worse with deep breathing, as well as chills, sweats, and feeling hot. Denies jaundice or pale stools, noted that urine is darker. She does not take nsaids, but takes cannabis daily from a young age. She has had simlar pain usu relived with hot showers. Right now she is feeling more relaxed and pain is not as bad Imaging : dilated CBD and gallstones with thickened GB on CT and US, MRCP to my read with no filling defect in CBD and cholelithiasis. LABS; mild raised bili, AST/ALT v high (560/1100) Review of Systems Review of Systems: Constitutional : No Weight loss, ENT/Mouth : No sore throat, No Rhinorrhea Eyes: No Swelling, No Redness Cardiovascular : No Chest Pain, No SOB, No Edema Respiratory : No Cough, No Sputum, No Wheezing Gastrointestinal : see HPI Genitourinary : NO Dysuria, No Urinary Frequency, No Hematuria, No Urgency Musculoskeletal : No joint pain, No Myalgias, No Joint Swelling Skin : No Skin Lesions, No rash Neuro : No Weakness, No Numbness, No Dizziness, No Headache Psych : No Anxiety/Panic, No Depression Heme/Lymph: No Bruising, No Lymphadenopathy Endocrine : No Polyuria, No Polydipsia All other systems reviewed and are negative. [facility] Past Medical History Medical History Hypothyroidism Family History Pertinent family history: No fh of liver or gallbladder disease Social History Social History Alcohol intake: never Patient Tobacco Use Status: Never used Tobacco Smoked in Last 30 Days: No Use of substances other than those prescribed or required for medical reasons: Yes Substance Use Type: Marijuana Advance Directives: No Advance Directives Information Provided: Yes Nutrition Risks: Acute nausea or vomiting x1 week Patient : No Meds Allergies Allergy/AdvReac Type Severity Reaction Status Date / Time No Known Allergies Allergy Mild UNKNOWN Verified 08/03/21 15:06 Active Medications: Current Medications Acetaminophen (Acetaminophen 325 Mg Tablet) 650 mg PO Q6H PRN PRN Reason: Pain, Mild (Pain Scale 1-3) Docusate Sodium (Docusate Sodium 100 Mg Capsule) 100 mg PO DAILY PRN PRN Reason: Constipation Docusate Sodium (Docusate Sodium 100 Mg Capsule) 200 mg PO BID [facility] Heparin Sodium (Porcine) (Heparin Sodium,Porcine 5,000 Unit/Ml Vial) 5,000 unit SUBCUT Q12H [facility] Last Admin: 01/26/23 14:07 Dose: 5,000 unit Hydromorphone HCl (Hydromorphone Hcl 0.5 Mg/0.5 Ml Syringe) 0.25 mg IVPUSH Q2H PRN; Protocol PRN Reason: Pain, Moderate (Pain Scale 4-6 Ampicillin Sodium 2 gm/ Sodium (Chloride) 100 mls @ 100 mls/hr IV Q4H [facility] Last Admin: 01/26/23 14:07 Dose: 100 mls/hr Lactated Ringer's (Lr) 1,000 mls @ 100 mls/hr IVCONT .Q10H [facility] Last Admin: 01/26/23 15:37 Dose: 100 mls/hr Ketorolac Tromethamine (Ketorolac Tromethamine 30 Mg/Ml Vial) 30 mg IVPUSH Q6H PRN PRN Reason: Pain, Moderate (Pain Scale 4-6 Stop: 01/31/23 12:29 Morphine Sulfate (Morphine Sulfate 4 Mg/Ml Cartridge) 2 mg IVPUSH Q4H PRN; Protocol PRN Reason: Pain, Severe (Pain Scale 7-10) Ondansetron HCl (Ondansetron Hcl 4 Mg/2 Ml Vial) 4 mg IVPUSH Q8H PRN PRN Reason: Nausea and Vomiting Ondansetron HCl (Ondansetron Hcl 4 Mg/2 Ml Vial) 4 mg IVPUSH Q6H PRN PRN Reason: Nausea and Vomiting Pharmacy Consult (Consult Rx Perform Med Rec) 1 each MISCELLANE ONCE PRN PRN Reason: Consult order Sodium Chloride (0.9 % Sodium Chloride Flush 3 Ml Syringe) [facility] Medications Medication Instructions Recorded Confirmed Last Taken Type levothyroxine 125 mcg tablet 125 mcg PO DAILY 01/26/23 01/26/23 Unknown History Physical Exam Vital Signs: Vital Signs: Last Vital Signs Temp 97.7 F 01/26/23 10:03 Pulse 56 01/26/23 10:03 Resp 18 01/26/23 10:03 BP 115/59 L 01/26/23 10:03 Pulse Ox 99 01/26/23 10:03 O2 Del Method Room Air 01/26/23 10:03 BMI result Body Mass Index 32.9 EXAM: GENERAL: The patient is well developed and nontoxic. VITAL SIGNS:see workflow HEENT: Nonicteric sclerae, PERRLA, EOMI. Oropharynx clear. Moist mucous membranes. Conjunctivae appear well perfused. No thyroid mass. CHEST: Chest wall is nontender. HEART: Regular rate and rhythm without murmurs. LUNGS: Clear to auscultation bilaterally. ABDOMEN: Soft, positive bowel sounds, mildly tender epigastrium, no organomegaly.no flank tenderness SKIN: No rash, no excessive bruising, petechiae, or purpura. NEUROLOGIC: Cranial nerves II-XII intact without motor/sensory deficit. Psych: Appearance: grossly normal Results Labs 01/26/23 09:57 01/26/23 09:56 Labs: Short CBC 01/26/23 Range/Units 09:57 WBC 7.3 (4.8-10.8) X10*3/uL Hgb 14.4 (12.0-16.0) g/dl Hct 43.0 (37.0-47.0) % Plt Count 346 (160-400) X10*3/uL BMP 01/26/23 09:56 Sodium 143 Potassium 3.9 Chloride 110 H Carbon Dioxide 25 BUN 11 Creatinine 0.73 Calcium 9.1 Liver Function 01/26/23 Range/Units 09:56 Total Bilirubin 2.7 H (0.0-1.0) mg/dL Direct Bilirubin 1.9 H (0.0-0.5) mg/dL AST 567 H (5-31) U/L ALT 1185 H (0-31) U/L Alkaline Phosphatase 222 H (39-117) U/L Albumin 4.3 (3.5-5.0) g/dL Urine 01/26/23 Range/Units 11:07 Urine Color Dark Yellow Urine Appearance Turbid Urine pH 5.5 (5.0-9.0) Ur Specific [place] >= 1.030 H (1.005-1.025) Urine Protein 30 (1+) H (Neg-Trace) mg/dL Urine Glucose (UA) Negative (Negative) mg/dL Imaging MRI - abdomen: Attestation: I personally reviewed and interpreted this imaging study as follows: (dilated cbd, no filling defects, GB with filling defects ) Assessment and Plan (1) Elevated LFTs: Status: Acute (2) Cholecystitis: Status: Acute Plan 1/ Suspect she has passed a CBD stone, she seems much more relaxed now. She may also have perihepatic inflammation from cholecystitis Plan: 1/ Await formal MRI report if indeed neg for choledocholithiasis then surgical review, otherwise can schedule for ERCP 2/ trend LFT Time Spent With Patient Time: Total time managing care of this patient today ____ minutes. Procedures Date of Service Date of Service: 01/26/23
[2023-01-26 16:17] VITALS: BMI 27.3
[2023-01-26 16:25] VITALS: BP 111/65; PULSE 53; RESP 16; TEMP 36.1; O2SAT 98
[2023-01-26 20:55] VITALS: BP 115/63; PULSE 90; RESP 18; TEMP 36.7; O2SAT 93
[2023-01-27] MEDS: Ampicillin Sodium 2 GM in 0.9 % Sodium Chloride 100 ML IV ×3 (01:58→09:01)
[2023-01-27 06:17] LABS: MANUAL DIFF FLAG NO
[2023-01-27 06:28] LABS: Amylase 48 U/L (28-100)
[2023-01-27 06:29] LABS: Basophils Percent Auto 0.4 % (0-2); Eosinophils Absolute Auto 0.1 X10*3/uL (0.0-0.4); Eosinophils Percent Auto 1.2 % (0-4); Hematocrit 39.7 % (37.0-47.0); Hemoglobin 13.1 g/dl (12.0-16.0); Imm Gran Abs Auto 0.03 X10*3/uL (0.00-0.03); Imm Gran Pct Auto 0.4 % (0.0-0.4); Lymphocytes Percent Auto 13.6 % (20-40); Mean Corpuscular Hemoglobin 32.1 pg (27.0-33.0); Mean Corpuscular Volume 97.3 fL (80.0-98.0); Mean Platelet Volume 10.8 fL (9.4-12.3); Monocytes Absolute Auto 0.2 X10*3/uL (0.1-1.2); Monocytes Percent Auto 2.1 % (2-11); Neutrophils Percent Auto 82.3 % (45-73); Platelet Count 298 X10*3/uL (160-400); Red Blood Count 4.08 X10*6/uL (4.20-5.50); Red Cell Distribution Width 12.7 % (11.0-16.0); White Blood Count 7.3 X10*3/uL (4.8-10.8)
[2023-01-27 06:37] LABS: Alanine Aminotransferase 819 U/L (0-31); Albumin Level 3.3 g/dL (3.5-5.0); Alkaline Phosphatase 178 U/L (39-117); Anion Gap 13 (12-20); Aspartate Amino Transferase 237 U/L (5-31); Bilirubin Total 1.9 mg/dL (0.0-1.0); Blood Urea Nitrogen 8 mg/dL (9-16); Calcium 8.3 mg/dL (8.4-10.2); Carbon Dioxide 21 mmol/L (22-29); Chloride 113 mmol/L (96-108); Estimated Glomerular Filt Rate > 60; Glucose Random 83 mg/dL (60-115); Potassium 3.7 mmol/L (3.3-5.1); Sodium 143 mmol/L (135-145); Total Protein 5.6 g/dL (6.5-8.0)
[2023-01-27 07:51] VITALS: BP 103/57; PULSE 74; RESP 18; TEMP 36.8; O2SAT 93
--- NOTE | 2023-01-27 08:22 | P.PNGS_ITS ---
Subjective Subjective Date of Service: 01/27/23 Patient reports: feels better, flatus and bowel movement Interval history: The patient reports that the pain she was experiencing has resolved. Yesterday, she became upset and threatened to sign out against medical advice. We discussed this today, noting that she has 2 small children who are staying at a friend's. After eli discussion of the risks of gallstone pancreatitis, cholangitis and the inherent risks of prolonged admission with this choice, the patient changed her mind and is willing to stay in the hospital. She reports that she is having no further back or abdominal pain. She otherwise denies c hest pain, difficulty breathing or shortness of breath. Physical Exam Vital Signs: Vital Signs: Last Vital Signs Temp 98.3 F 01/27/23 07:51 Pulse 74 01/27/23 07:51 Resp 18 01/27/23 07:51 BP 103/57 L 01/27/23 07:51 Pulse Ox 93 01/27/23 07:51 O2 Del Method Room Air 01/27/23 07:51 BMI result Body Mass Index 27.3 On exam she is nontoxic Sclera are anicteric She is in no acute respiratory distress Abdomen is overweight and soft with no tenderness Objective Data Active Medications Acetaminophen (Acetaminophen 325 Mg Tablet) 650 mg PO Q6H PRN PRN Reason: Pain, Mild (Pain Scale 1-3) Docusate Sodium (Docusate Sodium 100 Mg Capsule) 100 mg PO DAILY PRN PRN Reason: Constipation Docusate Sodium (Docusate Sodium 100 Mg Capsule) 200 mg PO BID [facility] Last Admin: 01/26/23 21:54 Dose: Not Given Documented By: MIKEY Non-Admin Reason: Patient Refused Heparin Sodium (Porcine) (Heparin Sodium,Porcine 5,000 Unit/Ml Vial) 5,000 unit SUBCUT Q12H [facility] Last Admin: 01/27/23 02:04 Dose: Not Given Documented By: MIKEY Non-Admin Reason: Patient Refused Hydromorphone HCl (Hydromorphone Hcl 0.5 Mg/0.5 Ml Syringe) 0.25 mg IVPUSH Q2H PRN; Protocol PRN Reason: Pain, Moderate (Pain Scale 4-6 Lactated Ringer's (Lr) 1,000 mls @ 100 mls/hr IVCONT .Q10H [facility] Last Admin: 01/27/23 02:06 Dose: 100 mls/hr Documented By: MIKEY Ampicillin Sodium 2 gm/ Sodium (Chloride) 100 mls @ 100 mls/hr IV Q4H [facility] Last Admin: 01/27/23 06:00 Dose: 100 mls/hr Documented By: MIKEY Ketorolac Tromethamine (Ketorolac Tromethamine 30 Mg/Ml Vial) 30 mg IVPUSH Q6H PRN PRN Reason: Pain, Moderate (Pain Scale 4-6 Stop: 01/31/23 12:29 Morphine Sulfate (Morphine Sulfate 4 Mg/Ml Cartridge) 2 mg IVPUSH Q4H PRN; Protocol PRN Reason: Pain, Severe (Pain Scale 7-10) Ondansetron HCl (Ondansetron Hcl 4 Mg/2 Ml Vial) 4 mg IVPUSH Q8H PRN PRN Reason: Nausea and Vomiting Ondansetron HCl (Ondansetron Hcl 4 Mg/2 Ml Vial) 4 mg IVPUSH Q6H PRN PRN Reason: Nausea and Vomiting Pharmacy Consult (Consult Rx Perform Med Rec) 1 each MISCELLANE ONCE PRN PRN Reason: Consult order Sodium Chloride (0.9 % Sodium Chloride Flush 3 Ml Syringe) 3 ml IVFLUSH QSHIFT [facility] Last Admin: 01/26/23 23:00 Dose: Not Given Documented By: MIKEY Non-Admin Reason: Patient Refused Labs 01/27/23 05:59 01/27/23 05:59 Labs: Laboratory Results - last 24 hr 01/26/23 01/26/23 01/26/23 09:56 09:57 10:09 MCV 97.5 MCH 32.7 MCHC 33.5 RDW 12.5 Plt Count 346 MPV 10.5 Immature Gran % (Auto) 0.3 Neut % (Auto) 73.9 H Lymph % (Auto) 18.4 L [place] % (Auto) 5.7 Eos % (Auto) 1.0 Baso % (Auto) 0.7 Lymph # (Auto) 1.4 [place] # (Auto) 0.4 Eos # (Auto) 0.1 Baso # (Auto) 0.1 Abs Immat Gran (auto) 0.02 Absolute Neuts (auto) 5.4 Absolute Nucleated RBC 0.000 Nucleated RBC % (auto) 0.0 Anion Gap 12 Estim Creat Clear Calc 117.0 Estimated GFR > 60 Random Glucose 112 Calcium 9.1 Total Bilirubin 2.7 H Direct Bilirubin 1.9 H AST 567 H ALT 1185 H Alkaline Phosphatase 222 H Total Protein 7.0 Albumin 4.3 Amylase Lipase 21 Beta HCG, Quant < 2 Urine Color Urine Appearance Urine pH Ur Specific [place] Urine Protein Urine Glucose (UA) Urine Ketones Urine Blood Urine Nitrite Ur Leukocyte Esterase Urine RBC Urine WBC Ur Squamous Epith Cells Other Crystals Urine Bacteria Hyaline Casts Urine Test 01/26/23 01/26/23 01/27/23 11:07 11:07 05:59 MCV 97.3 MCH 32.1 MCHC 33.0 RDW 12.7 Plt Count 298 MPV 10.8 Immature Gran % (Auto) 0.4 Neut % (Auto) 82.3 H Lymph % (Auto) 13.6 L [place] % (Auto) 2.1 Eos % (Auto) 1.2 Baso % (Auto) 0.4 Lymph # (Auto) 1.0 L [place] # (Auto) 0.2 Eos # (Auto) 0.1 Baso # (Auto) 0.0 Abs Immat Gran (auto) 0.03 Absolute Neuts (auto) 6.0 Absolute Nucleated RBC 0.000 Nucleated RBC % (auto) 0.0 Anion Gap Estim Creat Clear Calc Estimated GFR Random Glucose Calcium Total Bilirubin Direct Bilirubin AST ALT Alkaline Phosphatase Total Protein Albumin Amylase Lipase Beta HCG, Quant Urine Color Dark Yellow Urine Appearance Turbid Urine pH 5.5 Ur Specific [place] >= 1.030 H Urine Protein 30 (1+) H Urine Glucose (UA) Negative Urine Ketones 40 Urine Blood Large (3+) H Urine Nitrite Positive H Ur Leukocyte Esterase Small (1+) H Urine RBC >20 H Urine WBC 6-10 Ur Squamous Epith Cells 0-2 Other Crystals Present Urine Bacteria None Seen Hyaline Casts 0-2 Urine Test NEGATIVE 01/27/23 01/27/23 05:59 05:59 MCV MCH MCHC RDW Plt Count MPV Immature Gran % (Auto) Neut % (Auto) Lymph % (Auto) [place] % (Auto) Eos % (Auto) Baso % (Auto) Lymph # (Auto) [place] # (Auto) Eos # (Auto) Baso # (Auto) Abs Immat Gran (auto) Absolute Neuts (auto) Absolute Nucleated RBC Nucleated RBC % (auto) Anion Gap 13 Estim Creat Clear Calc 118.0 Estimated GFR > 60 Random Glucose 83 Calcium 8.3 L D Total Bilirubin 1.9 H Direct Bilirubin AST 237 H ALT 819 H Alkaline Phosphatase 178 H Total Protein 5.6 L Albumin 3.3 L Amylase 48 Lipase Beta HCG, Quant Urine Color Urine Appearance Urine pH Ur Specific [place] Urine Protein Urine Glucose (UA) Urine Ketones Urine Blood Urine Nitrite Ur Leukocyte Esterase Urine RBC Urine WBC Ur Squamous Epith Cells Other Crystals Urine Bacteria Hyaline Casts Urine Test Procedures Date of Service Date of Service: 01/27/23 Progress Note: A&P Assessment and plan (1) Choledocholithiasis: Status: Acute (2) Elevated LFTs: Status: Acute (3) Morbid (severe) obesity due to excess calories: Status: Acute Plan Clinically, the patient does not have acute calculous cholecystitis. Her abdominal exam is completely benign today and she has no leukocytosis. She likely experienced an episode of choledocholithiasis and I have recommended laparoscopic cholecystectomy. I reviewed the option of continued observation and 2nd opinion which was declined. I also reviewed the inherent risks to surgery which include, but are not limited to: Bleeding that could require another operation or blood transfusion, the need for open surgery, the unlikely but possible issue of bile leak that could require an ERCP, the risk of retained common duct stones that could require an ERCP, the risk of common bile duct injury which would require transfer to a larger institution for another operation. Patient seemed to understand her options, declined a rouge presser or 2nd opinion and wants to pro ceed. Instructions regarding diet and activity reviewed and apparently understood. The patient is advised to avoid rich fatty foods postoperatively to avoid GI distress/diarrhea and advised to not lift more than 20 lb for medical reasons to minimize the risk of hernia postoperatively. I recommended that she discuss these restrictions with her employer and that she is not disabled during this time frame but can perform light duty. The patient's questions seemed to be satisfactorily answered. Patient also asked about starting a diet today. I explained that this could precipitate another episode of choledocholithiasis that may require an ERCP, consequently, I would recommend continuing NPO. In reviewing the OR schedule, will plan to trend labs overnight. The possible need for ERCP was again discussed with the patient, but given the prior studies, I would anticipate her LFTs to normalize. Plan for laparoscopic, possible open cholecystectomy with possible cholangiogram tomorrow morning, January 28 at 0730. Ancef, 2 g IV on-call, continue SCDs and have the patient void on-call to OR. Time Spent With Patient Time: Total time managing care of this patient today ____ minutes. Quality Stroke Does the patient have a stroke diagnosis?: No VTE Prior VTE?: No VTE Risk Level:: Medical - moderate - high VTE Device Contraindication: Treatment Not Indicated VTE Drug Contraindication: N/A - Med Ordered
--- NOTE | 2023-01-27 09:56 | MHC.CM.PN ---
pt lives w/boyfriend has own ride home drelucia augustinebelgica x4 is working and independent home no servceis is the dc plan
[2023-01-27] MEDS: Lactated Ringers 1,000 ML 100 ML IVCONT ×3 (11:04→21:53)
[2023-01-27 16:02] VITALS: BP 113/59; PULSE 71; RESP 16; TEMP 36.7; O2SAT 100
[2023-01-27 19:44] VITALS: BP 113/59; PULSE 61; RESP 16; TEMP 36.6; O2SAT 96
[2023-01-28] VITALS (13 sets, daily range): BP systolic 101–143; BP diastolic 56–78; PULSE 63–93; RESP 16–20; TEMP 36.2–36.9; O2SAT 93–100
[2023-01-28] MEDS: Lactated Ringers 1,000 ML 100 ML IVCONT ×2 (07:33→22:27)
--- NOTE | 2023-01-28 07:55 | P.CONAN_ITS ---
[facility] Active Problems Active Problems: All Active Problems (Updated 01/26/23 @ 13:09 by Da Reddy MD) Elevated LFTs (Acute) Morbid (severe) obesity due to excess calories (Acute) Choledocholithiasis (Acute) Cholecystitis (Acute) Elevated LFTs (Acute) Past Medical History Medical History Hypothyroidism Family History Family history of problems with anesthesia: No Surgical History History of Problems with Anesthesia: No Social History Social History Household Members: Significant Other and Children Housing: Apartment Do you presently have visiting nurse or other home services: Yes Alcohol intake: never Patient Tobacco Use Status: Never used Tobacco Substance Use Type: Marijuana service: No Meds Allergies Allergy/AdvReac Type Severity Reaction Status Date / Time No Known Allergies Allergy Mild UNKNOWN Verified 08/03/21 15:06 Active Medications: Current Medications Acetaminophen (Acetaminophen 325 Mg Tablet) 650 mg PO Q6H PRN PRN Reason: Pain, Mild (Pain Scale 1-3) Docusate Sodium (Docusate Sodium 100 Mg Capsule) 200 mg PO BID [facility] Last Admin: 01/28/23 07:33 Dose: Not Given Heparin Sodium (Porcine) (Heparin Sodium,Porcine 5,000 Unit/Ml Vial) 5,000 unit SUBCUT Q12H [facility] Last Admin: 01/28/23 01:12 Dose: Not Given Hydromorphone HCl (Hydromorphone Hcl 0.5 Mg/0.5 Ml Syringe) 0.25 mg IVPUSH Q2H PRN; Protocol PRN Reason: Pain, Moderate (Pain Scale 4-6 Lactated Ringer's (Lr) 1,000 mls @ 100 mls/hr IVCONT .Q10H [facility] Last Admin: 01/28/23 07:33 Dose: 100 mls/hr Ketorolac Tromethamine (Ketorolac Tromethamine 30 Mg/Ml Vial) 30 mg IVPUSH Q6H PRN PRN Reason: Pain, Moderate (Pain Scale 4-6 Stop: 01/31/23 12:29 Morphine Sulfate (Morphine Sulfate 4 Mg/Ml Cartridge) 2 mg IVPUSH Q4H PRN; Protocol PRN Reason: Pain, Severe (Pain Scale 7-10) Ondansetron HCl (Ondansetron Hcl 4 Mg/2 Ml Vial) 4 mg IVPUSH Q8H PRN PRN Reason: Nausea and Vomiting Ondansetron HCl (Ondansetron Hcl 4 Mg/2 Ml Vial) 4 mg IVPUSH Q6H PRN PRN Reason: Nausea and Vomiting Pharmacy Consult (Consult Rx Perform Med Rec) 1 each MISCELLANE ONCE PRN PRN Reason: Consult order Sodium Chloride (0.9 % Sodium Chloride Flush 3 Ml Syringe) [address] [facility] Last Admin: 01/28/23 07:32 Dose: Not Given Home Medications Medication Instructions Recorded Confirmed Last Taken Type levothyroxine 125 mcg tablet 125 mcg PO DAILY 01/26/23 01/26/23 Unknown History Exam Exam Date and Time: January 28, 2023 0755 Height,Weight and Vital Signs: Height 5 ft 4 in Weight 72.1 kg Last Vital Signs Temp 98.5 F 01/28/23 04:00 Pulse 77 01/28/23 04:00 Resp 16 01/28/23 04:00 BP 101/56 L 01/28/23 04:00 Pulse Ox 93 01/28/23 04:00 O2 Del Method Room Air 01/28/23 04:00 Pertinent Lab Results Pertinent Lab Results: Laboratory Tests 01/26/23 01/26/23 01/26/23 09:56 09:57 10:09 WBC 7.3 RBC 4.41 Hgb 14.4 Hct 43.0 MCV 97.5 MCH 32.7 MCHC 33.5 RDW 12.5 Plt Count 346 MPV 10.5 Immature Gran % (Auto) 0.3 Neut % (Auto) 73.9 H Lymph % (Auto) 18.4 L [place] % (Auto) 5.7 Eos % (Auto) 1.0 Baso % (Auto) 0.7 Lymph # (Auto) 1.4 [place] # (Auto) 0.4 Eos # (Auto) 0.1 Baso # (Auto) 0.1 Abs Immat Gran (auto) 0.02 Absolute Neuts (auto) 5.4 Absolute Nucleated RBC 0.000 Nucleated RBC % (auto) 0.0 Sodium 143 Potassium 3.9 Chloride 110 H Carbon Dioxide 25 Anion Gap 12 BUN 11 Creatinine 0.73 Estim Creat Clear Calc 117.0 Estimated GFR > 60 Random Glucose 112 Calcium 9.1 Total Bilirubin 2.7 H Direct Bilirubin 1.9 H AST 567 H ALT 1185 H Alkaline Phosphatase 222 H Total Protein 7.0 Albumin 4.3 Amylase Lipase 21 Beta HCG, Quant < 2 Urine Color Urine Appearance Urine pH Ur Specific [place] Urine Protein Urine Glucose (UA) Urine Ketones Urine Blood Urine Nitrite Ur Leukocyte Esterase Urine RBC Urine WBC Ur Squamous Epith Cells Other Crystals Urine Bacteria Hyaline Casts Urine Test 01/26/23 01/26/23 01/27/23 11:07 11:07 05:59 WBC 7.3 RBC 4.08 L Hgb 13.1 Hct 39.7 MCV 97.3 MCH 32.1 MCHC 33.0 RDW 12.7 Plt Count 298 MPV 10.8 Immature Gran % (Auto) 0.4 Neut % (Auto) 82.3 H Lymph % (Auto) 13.6 L [place] % (Auto) 2.1 Eos % (Auto) 1.2 Baso % (Auto) 0.4 Lymph # (Auto) 1.0 L [place] # (Auto) 0.2 Eos # (Auto) 0.1 Baso # (Auto) 0.0 Abs Immat Gran (auto) 0.03 Absolute Neuts (auto) 6.0 Absolute Nucleated RBC 0.000 Nucleated RBC % (auto) 0.0 Sodium Potassium Chloride Carbon Dioxide Anion Gap BUN Creatinine Estim Creat Clear Calc Estimated GFR Random Glucose Calcium Total Bilirubin Direct Bilirubin AST ALT Alkaline Phosphatase Total Protein Albumin Amylase Lipase Beta HCG, Quant Urine Color Dark Yellow Urine Appearance Turbid Urine pH 5.5 Ur Specific [place] >= 1.030 H Urine Protein 30 (1+) H Urine Glucose (UA) Negative Urine Ketones 40 Urine Blood Large (3+) H Urine Nitrite Positive H Ur Leukocyte Esterase Small (1+) H Urine RBC >20 H Urine WBC 6-10 Ur Squamous Epith Cells 0-2 Other Crystals Present Urine Bacteria None Seen Hyaline Casts 0-2 Urine Test NEGATIVE 01/27/23 01/27/23 05:59 05:59 WBC RBC Hgb Hct MCV MCH MCHC RDW Plt Count MPV Immature Gran % (Auto) Neut % (Auto) Lymph % (Auto) [place] % (Auto) Eos % (Auto) Baso % (Auto) Lymph # (Auto) [place] # (Auto) Eos # (Auto) Baso # (Auto) Abs Immat Gran (auto) Absolute Neuts (auto) Absolute Nucleated RBC Nucleated RBC % (auto) Sodium 143 Potassium 3.7 Chloride 113 H Carbon Dioxide 21 L Anion Gap 13 BUN 8 L Creatinine 0.66 Estim Creat Clear Calc 118.0 Estimated GFR > 60 Random Glucose 83 Calcium 8.3 L D Total Bilirubin 1.9 H Direct Bilirubin AST 237 H ALT 819 H Alkaline Phosphatase 178 H Total Protein 5.6 L Albumin 3.3 L Amylase 48 Lipase Beta HCG, Quant Urine Color Urine Appearance Urine pH Ur Specific [place] Urine Protein Urine Glucose (UA) Urine Ketones Urine Blood Urine Nitrite Ur Leukocyte Esterase Urine RBC Urine WBC Ur Squamous Epith Cells Other Crystals Urine Bacteria Hyaline Casts Urine Test Airway Mallampati Class: III TM Dist: >3cm Neck ROM: Full Assessment and Plan Assessment Anesthesia Assessment: Anesthesia Plan Discussed and Chart Reviewed Final Anesthetic Review Family History of Problems with Anesthesia: No History of Problems with Anesthesia: No NPO: Yes ASA Class: II and Emergency Final Preanesthetic Review: No Changes in Pt Med Stat, Meds/Allgs Chart Reviewed, Consent Obtained/Reviewed and Anes Risks/Benef Reviewed Patient Risk: Intermediate Procedure Risk: Intermediate Anesthetic Plan Anesthetic Plan: GA Disposition: Standard PACU
--- NOTE | 2023-01-28 08:02 | P.OP_ITS ---
Operative Note Operative Note Date of Service: 01/28/23 Narrative: Preop diagnosis: [Choledocholithiasis, transient] Postop diagnosis: [Same, [facility]] Procedure: [Laparoscopic cholecystectomy] Surgeon: Warren Douglass MD Assist: [Christy Dee RN] Anesthesia: [GET, Marcaine, 0.5% w/ epi] Estimated blood loss: [100cc] Specimen: [GB with contents] Drain: DEVENDRA in Morison's pouch Intraoperative findings: [The cystic duct was approximately 12 mm OD and required 10 mm clip director of annual giving which did not completely traverse the duct, so endoloop x2 was used on the cystic duct stump, which required an additional 5 mm trocar to be placed in the right subcostal area. The cystic artery was about 3 mm in densely adherent to the posterior enlarged cystic artery. It was double clipped.] Indications: [I explained the symptoms of choledocholithiasis and risk of pancreatitis or cholangitis and recommended laparoscopic cholecystectomy. I reviewed the option of continued observation and 2nd opinion which was declined. I also reviewed the inherent risks to surgery which include, but are not limited to: Bleeding that could require another operation or blood transfusion, the need for open surgery, the unlikely but possible issue of bile leak that could require an ERCP, the risk of retained common duct stones that could require an ERCP, the risk of common bile duct injury which would require transfer to a larger institution for another operation. Patient seemed to understand her options, declined a windsmith or 2nd opinion and wants to proceed. Instructions regarding diet and activity reviewed and apparently understood. The patient is advised to avoid rich fatty foods postoperatively to avoid GI distress/diarrhea and advised to not lift more than 20 lb for medical reasons to minimize the risk of hernia postoperatively. I recommended that she discuss these restrictions with her employer and that she is not disabled during this time frame but can perform light duty. The patient's questions seemed to be satisfactorily answered.] Procedure: [The patient was identified in preoperative holding and again in the operating room and placed supine on the table. An appropriate time-out was performed and preemptive local used at all trocar insertion sites. I began at the patient's supraumbilical midline and placed a Veress needle through a stab incision. An appropriate drop test was performed. The needle was connected to high flow and opening pressures were 8 mmHg. A pneumoperitoneum of 15 mmHg was then obtained using carbon dioxide and I accessed the patient's abdomen through the right side of the abdomen in the anterior axillary line at the level of the umbilicus using a 5 mm Optiview trocar and 30 degree/5 mm laparoscopic without incident. Next a a 5 mm epigastric and 5 mm right subcostal port were placed with preemptive analgesia under direct laparoscopic vision and limited lysis of adhesions adding about 5 minutes to the case was performed to dissect omentum from the umbilical area to allow placement of a 12 mm trocar. During dissection, the epigastric trocar had to be upsized to a 12 mm to accommodate a 10 mm clip director of annual giving and an additional 5 mm port placed, both under direct laparoscopic vision, for placement of endo loops. The gallbladder was clearly identified and grasped by its fundus. It was retracted cranially and anteriorly and dissection began in the cystic triangle. The cystic duct was identified at its junction on the gallbladder and dissection began laterally, then circumferentially dissected using the [place] dissector and hook. The cystic artery was densely adherent to the posterior cystic duct and approximately 3 mm. Once dissection of both structures was complete and the critical view of safety demonstrated, the duct and artery were double clipped proximally and once distally and sharply divided. Electrocautery was used to remove the gallbladder from its fossa on the liver. Liver bed was inspected for hemostasis and the clips were noted to be on the respective structures. The gallbladder was placed in an Endo-Catch bag and delivered through the umbilicus under direct laparoscopic vision. The abdomen was again inspected with the laparoscoped and a abdomen deflated to assess for hemostasis. A 10 mm DEVENDRA drain was placed in Morison's pouch and secured to the skin with a 2-0 silk suture. The patient was returned to neutral position, the abdomen deflated and the fascia of the supraumbilical incision closed with interrupted Vicryl sutures. Skin was closed with 4-0 Monocryl subcuticular sutures. Mastisol and Steri-Strips were applied followed by Band- Aids. The patient tolerated the procedure well and was extubated recovered in stable condition. All sponge instrument counts were correct. At the patient's request I called Naif at [[phone]] and apprise him of the operation and plan to keep her overnight and trend labs. His questions seemed to be satisfactorily answered.]
--- NOTE | 2023-01-28 10:48 | PM.OP ---
Brief Operative Note Date of Service: 01/28/23 Pre-op diagnosis: Choledocholithiasis and chronic calculous cholecystitis Post-op diagnosis: same Procedure: Lap choly Surgeon: Warren Douglass MD, FACS Anesthesia: GETA Was an Traveling Crane Operator used for this Procedure?: Yes Traveling Crane Operator: Pat Dee Estimated blood loss (mL): 100 Pathology: other (Gallbladder and contents) Condition: stable Disposition: PACU
[2023-01-28] MEDS: ondansetron HCL 4 MG/2 ML VIAL IVPUSH ×2 (10:52→17:25)
[2023-01-28] MEDS: fentaNYL citrate/PF 100 MCG/2 ML VIAL 50 MCG IVPUSH ×2 (10:52→10:59)
--- NOTE | 2023-01-28 11:06 | PC.NURSE ---
bladder scan for 559ml walko aware
--- NOTE | 2023-01-28 11:20 | PC.NURSE ---
straight cath patient for 600ml clear yellow urine per dr posey order
[2023-01-28] MEDS: oxyCODONE HCl Immed Release 5 MG TABLET PO (11:24)
[2023-01-28] MEDS: Morphine Sulfate 4 MG/ML CARTRIDGE 2 MG IVPUSH ×2 (13:07→20:34)
[2023-01-28 13:38] LABS: Basophils Percent Auto 0.2 % (0-2); Eosinophils Percent Auto 0.1 % (0-4); Hematocrit 40.2 % (37.0-47.0); Hemoglobin 13.2 g/dl (12.0-16.0); Imm Gran Pct Auto 1.1 % (0.0-0.4); Lymphocytes Absolute Auto 0.6 X10*3/uL (1.2-4.9); Lymphocytes Percent Auto 3.5 % (20-40); MANUAL DIFF FLAG SCAN; Mean Corpuscular HGB Conc 32.8 g/dl (31.0-35.0); Mean Corpuscular Volume 97.6 fL (80.0-98.0); Monocytes Absolute Auto 0.1 X10*3/uL (0.1-1.2); Monocytes Percent Auto 0.8 % (2-11); Neutrophils Absolute Auto 17.1 x10*3/uL (2.0-8.3); Neutrophils Percent Auto 94.3 % (45-73); Platelet Count 314 X10*3/uL (160-400); Red Blood Count 4.12 X10*6/uL (4.20-5.50); Red Cell Distribution Width 12.2 % (11.0-16.0); SCAN SMEAR FLAG 1; White Blood Count 18.1 X10*3/uL (4.8-10.8)
[2023-01-28 14:01] LABS: Alanine Aminotransferase 610 U/L (0-31); Albumin Level 3.8 g/dL (3.5-5.0); Alkaline Phosphatase 179 U/L (39-117); Anion Gap 17 (12-20); Aspartate Amino Transferase 124 U/L (5-31); Blood Urea Nitrogen 5 mg/dL (9-16); Calcium 8.3 mg/dL (8.4-10.2); Carbon Dioxide 15 mmol/L (22-29); Chloride 108 mmol/L (96-108); Creatinine Clr Calc Pharmacy 123.6; Estimated Glomerular Filt Rate > 60; Glucose Random 108 mg/dL (60-115); Potassium 4.1 mmol/L (3.3-5.1); Sodium 136 mmol/L (135-145); Total Protein 6.4 g/dL (6.5-8.0)
[2023-01-28 14:05] LABS: SLIDE REVIEW VERIFIED
[2023-01-28] MEDS: ceFAZolin Sodium/Dextrose,Iso 2 GM/50 ML PIGGYBACK IV (14:51)
[2023-01-28] MEDS: HYDROmorphone HCl 0.5 MG/0.5 ML SYRINGE 0.25 MG IVPUSH (15:20)
--- NOTE | 2023-01-28 17:59 | PC.NURSE ---
Dr Douglass notified of pt refusal for sequentials and heparin sc. Encouraged pt to apply sequentials and pt agreed. Pt voided 4 times post op without difficulty. Andres drain to right abdomen draining serous drainage. Pt belching, encouraged to get OOB. Pt assisted to BR and is currently up in recliner. Medicated for nausea with zofran
[2023-01-28] MEDS: Metoclopramide HCl 10 MG/2 ML VIAL IVPUSH (20:43)
[2023-01-29 03:55] VITALS: BP 125/71; PULSE 57; RESP 16; TEMP 36.3; O2SAT 96
[2023-01-29] MEDS: Acetaminophen 325 MG TABLET 650 MG PO (06:42)
[2023-01-29 07:10] LABS: MANUAL DIFF FLAG NO
[2023-01-29 07:13] LABS: Basophils Percent Auto 0.2 % (0-2); Hemoglobin 13.1 g/dl (12.0-16.0); Imm Gran Abs Auto 0.07 X10*3/uL (0.00-0.03); Imm Gran Pct Auto 0.5 % (0.0-0.4); Lymphocytes Absolute Auto 1.7 X10*3/uL (1.2-4.9); Lymphocytes Percent Auto 12.1 % (20-40); Mean Corpuscular HGB Conc 33.6 g/dl (31.0-35.0); Mean Corpuscular Hemoglobin 31.8 pg (27.0-33.0); Mean Corpuscular Volume 94.7 fL (80.0-98.0); Mean Platelet Volume 11.1 fL (9.4-12.3); Monocytes Absolute Auto 0.7 X10*3/uL (0.1-1.2); Monocytes Percent Auto 4.9 % (2-11); Neutrophils Absolute Auto 11.3 x10*3/uL (2.0-8.3); Neutrophils Percent Auto 82.3 % (45-73); Platelet Count 259 X10*3/uL (160-400); Red Blood Count 4.12 X10*6/uL (4.20-5.50); Red Cell Distribution Width 12.1 % (11.0-16.0); White Blood Count 13.8 X10*3/uL (4.8-10.8)
[2023-01-29] MEDS: HYDROmorphone HCl 0.5 MG/0.5 ML SYRINGE 0.25 MG IVPUSH (07:21)
[2023-01-29 07:33] VITALS: BP 140/78; PULSE 59; RESP 18; TEMP 36.7; O2SAT 96
--- NOTE | 2023-01-29 07:37 | P.PNGS_ITS ---
Subjective Subjective Date of Service: 01/29/23 Patient reports: feels better, still having pain, nausea and vomiting Interval history: The patient was seen around 07:15. She notes nausea and some vomiting overnight so she really has not taken much along the line of liquids. As a result, she did not get a low-fat diet. She reports minimal pain and remains interested in being discharged. We would discuss the importance of being able to drink liquid in maintain hydration to minimize the risk of DVT and other complications such as dehydration that could have significant risk factors to her health. She verbalized understanding and is willing to stay until we see labs and make sure that she is able to tolerate clear liquids. She otherwise denies any chest pain, difficulty breathing, shortness of breath. Physical Exam Vital Signs: Vital Signs: Last Vital Signs Temp 98.0 F 01/29/23 07:33 Pulse 59 01/29/23 07:33 Resp 18 01/29/23 07:33 BP 140/78 H 01/29/23 07:33 Pulse Ox 96 01/29/23 07:33 O2 Del Method Room Air 01/29/23 07:33 O2 Flow Rate 2 01/28/23 11:06 BMI result Body Mass Index 27.3 On exam, she is nontoxic and anicteric She is in no acute respiratory distress Her DEVENDRA was putting out slight serosanguineous material. There is no evidence of bile leak or ongoing bleeding. Her other trocar dressings are clean and intact and she has appropriate incisional tenderness After premedication with Dilaudid, 0.25 mg IV, the DEVENDRA was removed at the patient's bedside without incident and with minimal pain. Patient was re-examined at 0845 and is tolerating clear liquids and notes that her nausea has completely resolved. She otherwise denies pain in her chest trouble breathing or leg pain. She is anxious for discharge and also denies any back pain like she was experiencing a week ago when this illness started. Objective Data Active Medications Acetaminophen (Acetaminophen 325 Mg Tablet) 650 mg PO Q6H PRN PRN Reason: Pain, Mild (Pain Scale 1-3) Last Admin: 01/29/23 06:42 Dose: 650 mg Documented By: PRIYA Docusate Sodium (Docusate Sodium 100 Mg Capsule) 200 mg PO BID [facility] Last Admin: 01/28/23 20:54 Dose: Not Given Documented By: HO.LYSZ Non-Admin Reason: Patient Refused Fentanyl (Fentanyl Citrate/Pf 100 Mcg/2 Ml Vial) 50 mcg IVPUSH Q5M PRN; Protocol PRN Reason: Pain, Severe (Pain Scale 7-10) Last Admin: 01/28/23 10:59 Dose: 50 mcg Documented By: KM Hydromorphone HCl (Hydromorphone Hcl 0.5 Mg/0.5 Ml Syringe) 0.25 mg IVPUSH Q2H PRN; Protocol PRN Reason: Pain, Moderate (Pain Scale 4-6 Last Admin: 01/29/23 07:21 Dose: 0.25 mg Documented By: FLAQUITA Lactated Ringer's (Lr) 1,000 mls @ 100 mls/hr IVCONT .Q10H ORESTES Last Admin: 01/28/23 22:27 Dose: 100 mls/hr Documented By: PRIYA Metoclopramide HCl (Metoclopramide Hcl 10 Mg/2 Ml Vial) 10 mg IVPUSH Q8H PRN PRN Reason: Nausea Last Admin: 01/28/23 20:43 Dose: 10 mg Documented By: PRIYA Morphine Sulfate (Morphine Sulfate 4 Mg/Ml Cartridge) 2 mg IVPUSH Q4H PRN; Protocol PRN Reason: Pain, Severe (Pain Scale 7-10) Last Admin: 01/28/23 20:34 Dose: 2 mg Documented By: PRIYA Ondansetron HCl (Ondansetron Hcl 4 Mg/2 Ml Vial) 4 mg IVPUSH Q8H PRN PRN Reason: Nausea and Vomiting Last Admin: 01/28/23 10:52 Dose: 4 mg Documented By: DEMARCUS Ondansetron HCl (Ondansetron Hcl 4 Mg/2 Ml Vial) 4 mg IVPUSH Q6H PRN PRN Reason: Nausea and Vomiting Last Admin: 01/28/23 17:25 Dose: 4 mg Documented By: EDNA Ondansetron HCl (Ondansetron Hcl 4 Mg/2 Ml Vial) 4 mg IVPUSH ONCE PRN PRN Reason: Nausea and Vomiting Pharmacy Consult (Consult Rx Perform Med Rec) 1 each MISCELLANE ONCE PRN PRN Reason: Consult order Sodium Chloride (0.9 % Sodium Chloride Flush 3 Ml Syringe) 3 ml IVFLUSH [facility] Last Admin: 01/29/23 07:29 Dose: Not Given Documented By: FLAQUITA Non-Admin Reason: IV Running Labs 01/29/23 06:54 01/28/23 13:32 Labs: Laboratory Results - last 24 hr 01/28/23 01/28/23 01/29/23 13:32 13:32 06:54 MCV 97.6 94.7 MCH 32.0 31.8 MCHC 32.8 33.6 RDW 12.2 12.1 Plt Count 314 259 MPV 10.0 11.1 Immature Gran % (Auto) 1.1 H 0.5 H Neut % (Auto) 94.3 H 82.3 H Lymph % (Auto) 3.5 L 12.1 L [place] % (Auto) 0.8 L 4.9 Eos % (Auto) 0.1 0.0 Baso % (Auto) 0.2 0.2 Lymph # (Auto) 0.6 L 1.7 [place] # (Auto) 0.1 0.7 Eos # (Auto) 0.0 0.0 Baso # (Auto) 0.0 0.0 Abs Immat Gran (auto) 0.20 H 0.07 H Absolute Neuts (auto) 17.1 H 11.3 H Absolute Nucleated RBC 0.000 0.000 Nucleated RBC % (auto) 0.0 0.0 Smear Tech's Comments VERIFIED Anion Gap 17 Estim Creat Clear Calc 123.6 Estimated GFR > 60 Random Glucose 108 Calcium 8.3 L Total Bilirubin 1.0 AST 124 H ALT 610 H Alkaline Phosphatase 179 H Total Protein 6.4 L Albumin 3.8 Microbiology Microbiology Results: Microbiology 01/26/23 13:37 Blood Culture - Preliminary Blood - Venous No growth after 48 hours. 01/26/23 13:37 Blood Culture - Preliminary Blood - Venous No growth after 48 hours. Procedures Date of Service Date of Service: 01/29/23 Progress Note: A&P Assessment and plan (1) Choledocholithiasis: Status: Acute (2) Morbid (severe) obesity due to excess calories: Status: Acute (3) Elevated LFTs: Status: Acute Plan Clinically, the patient is making progress. Her leukocytosis is likely inflammatory in nature and she does not need antibiotics. Her nausea and vomiting have resolved, and we did discuss the possibility that she still has sludge in her common bile duct which can precipitate symptoms is she was experiencing a week ago due to choledocholithiasis. Since there was no evidence of stones on MRCP, I think the patient is safe for discharge and I will see her later this week with repeat LFTs to trend. Her total bilirubin is normal and the transaminases persistent elevation may be secondary to cautery on the liver. Her DEVENDRA was removed since there was no bilious or bloody drainage. Instructions regarding diet and activity were reviewed and apparently understood. The patient is requesting a nutrition consult regarding low-fat diet after acknowledge ink that she typically eats a high fat diet. Will plan for discharge after lunch if she continues to make progress. Time Spent With Patient Time: Total time managing care of this patient today ____ minutes. Quality Stroke Does the patient have a stroke diagnosis?: No VTE Prior VTE?: No VTE Risk Level:: Medical - moderate - high VTE Device Contraindication: Treatment Not Indicated VTE Drug Contraindication: N/A - Med Ordered
[2023-01-29 07:40] LABS: Alanine Aminotransferase 446 U/L (0-31); Albumin Level 3.8 g/dL (3.5-5.0); Alkaline Phosphatase 161 U/L (39-117); Aspartate Amino Transferase 76 U/L (5-31); Bilirubin Total 1.1 mg/dL (0.0-1.0); Blood Urea Nitrogen 5 mg/dL (9-16); Calcium 8.8 mg/dL (8.4-10.2); Creatinine Clr Calc Pharmacy 121.6; Estimated Glomerular Filt Rate > 60; Glucose Random 95 mg/dL (60-115); Total Protein 6.5 g/dL (6.5-8.0)
[2023-01-29 07:53] LABS: Anion Gap 16 (12-20); Carbon Dioxide 18 mmol/L (22-29); Chloride 108 mmol/L (96-108); Potassium 4.1 mmol/L (3.3-5.1); Sodium 138 mmol/L (135-145)
--- NOTE | 2023-01-29 10:34 | HO.POSTANES ---
Post Anesthesia Evaluation Post Anesthesia Evaluation Vital Signs: Vital Signs Temp Pulse Resp BP Pulse Ox O2 Del Method 01/29/23 07:33 98.0 F 59 18 140/78 H 96 Room Air 01/29/23 03:55 97.4 F 57 16 125/71 96 Room Air 01/28/23 23:49 18 Anesthesia: General Endotracheal-GETA Mental Status: Awake Pain Control: Satisfactory Nausea/Vomiting: None Hydration: Adequate Anesthesia-Related Issues: No Anes. Related Issues
--- NOTE | 2023-01-29 11:19 | MHC.CLN ---
re: consult CONSULT COMPLETED SEE TEACHING RECORD FOR DETAILS
--- NOTE | 2023-01-29 11:21 | P.DS_ITS ---
DS: Providers Provider Date of Service: 01/29/23 Date of admission: 01/26/23 13:08 Primary care physician: Unknown Physician Consults: 01/26/23 11:25 Consult to Gastroenterology Stat Consulting Provider: Aletha Walls Reason for consultation: elevated LFT Has provider been notified: Yes 01/26/23 11:26 Consult to General Surgery Stat Consulting Provider: Warren Douglass Reason for consultation: gallstones Has provider been notified: Yes DS: Diagnosis Discharge Diagnosis (1) Choledocholithiasis: Status: Acute (2) Morbid (severe) obesity due to excess calories: Status: Acute (3) Elevated LFTs: Status: Acute DS: Summary Hospital Course Hospital Course: Please see admitting H and P for full details. Briefly, this 32-year-old woman presented with abdominal and back pain, significantly elevated LFTs and a white count. She was demonstrated to have recent choledocholithiasis but no stones in her common bile duct. After trending her labs and monitoring her to be sure she did not need an ERCP, she underwent laparoscopic cholecystectomy. On the day of discharge, she was tolerating clears and a low-fat diet. Activity restrictions and dietary recommendations were reviewed. The patient will follow-up with me in a few days with repeat LFTs. If her symptoms of choledocholithiasis return, she will contact me in report to the nearest emergency room for evaluation for ERCP. Overall condition at time discharge is improved. Time Spent with Patient Time attestation: Total time managing care of this patient today ____ minutes. Discharge coordination time: Greater than 30 minutes Quality: Safe Use of Opioids Does Pt have an Active Cancer Diagnosis on the Problem List?: No Quality: Stroke Does the patient have a stroke diagnosis?: No Physical Exam Vital Signs: Vital Signs: Last Vital Signs Temp 98.0 F 01/29/23 07:33 Pulse 59 01/29/23 07:33 Resp 18 01/29/23 07:33 BP 140/78 H 01/29/23 07:33 Pulse Ox 96 01/29/23 07:33 O2 Del Method Room Air 01/29/23 07:33 O2 Flow Rate 2 01/28/23 11:06 BMI result Body Mass Index 27.3 DS: Data Data Completed and Pending Pending studies at discharge: Pending at discharge 01/28/23 10:17 Surgical [PTH] Routine Labs on day of discharge: Laboratory Results - last 24 hr 01/28/23 01/28/23 01/29/23 13:32 13:32 06:54 WBC 18.1 H 13.8 H RBC 4.12 L 4.12 L Hgb 13.2 13.1 Hct 40.2 39.0 MCV 97.6 94.7 MCH 32.0 31.8 MCHC 32.8 33.6 RDW 12.2 12.1 Plt Count 314 259 MPV 10.0 11.1 Immature Gran % (Auto) 1.1 H 0.5 H Neut % (Auto) 94.3 H 82.3 H Lymph % (Auto) 3.5 L 12.1 L [place] % (Auto) 0.8 L 4.9 Eos % (Auto) 0.1 0.0 Baso % (Auto) 0.2 0.2 Lymph # (Auto) 0.6 L 1.7 [place] # (Auto) 0.1 0.7 Eos # (Auto) 0.0 0.0 Baso # (Auto) 0.0 0.0 Abs Immat Gran (auto) 0.20 H 0.07 H Absolute Neuts (auto) 17.1 H 11.3 H Absolute Nucleated RBC 0.000 0.000 Nucleated RBC % (auto) 0.0 0.0 Smear Tech's Comments VERIFIED Sodium 136 Potassium 4.1 Chloride 108 Carbon Dioxide 15 L Anion Gap 17 BUN 5 L Creatinine 0.63 Estim Creat Clear Calc 123.6 Estimated GFR > 60 Random Glucose 108 Calcium 8.3 L Total Bilirubin 1.0 AST 124 H ALT 610 H Alkaline Phosphatase 179 H Total Protein 6.4 L Albumin 3.8 01/29/23 06:54 WBC RBC Hgb Hct MCV MCH MCHC RDW Plt Count MPV Immature Gran % (Auto) Neut % (Auto) Lymph % (Auto) [place] % (Auto) Eos % (Auto) Baso % (Auto) Lymph # (Auto) [place] # (Auto) Eos # (Auto) Baso # (Auto) Abs Immat Gran (auto) Absolute Neuts (auto) Absolute Nucleated RBC Nucleated RBC % (auto) Smear Tech's Comments Sodium 138 Potassium 4.1 Chloride 108 Carbon Dioxide 18 L Anion Gap 16 BUN 5 L Creatinine 0.64 Estim Creat Clear Calc 121.6 Estimated GFR > 60 Random Glucose 95 Calcium 8.8 D Total Bilirubin 1.1 H AST 76 H ALT 446 H Alkaline Phosphatase 161 H Total Protein 6.5 Albumin 3.8 Preliminary micro results at discharge 01/26/23 13:37 Blood Culture - Preliminary Blood - Venous No growth after 48 hours. 01/26/23 13:37 Blood Culture - Preliminary Blood - Venous No growth after 48 hours. Discharge Plan Discharge Anticipated Discharge Date/Time: 01/29/23 12:00 Patient Disposition: Home, Self-Care Discharge Diagnosis: Choledocholithiasis, status post lap choly Referrals: Physician,Sha John [Primary Care Provider] - 1 Week Warren Douglass MD [Physician] - 1 Week Discharge Medications: New oxycodone 5 mg tablet 5 mg PO Q4H PRN (Reason: pain) Qty: 14 0RF Rx Instructions: Partial Fill upon patient request. Continued levothyroxine 125 mcg Tablet 125 mcg PO DAILY Discharge Orders: Discharge Order (Routine); Ordered 01/29/23 Ordered By: Warren Douglass Diet: Low-fat Activity on Discharge: No heavy lifting Stand Alone Forms: Patient Portal Discharge page Activity Restrictions/Additional Instructions: You had a laparoscopic cholecystectomy performed by Dr. Douglass. It is normal to experience some neck or shoulder pain from the gas used to inflate your abdomen. It is also normal to have pain or discomfort in your abdomen/belly as well as at the trocar sites (small incisions). This discomfort will resolve over the next 1-3 days, however, if it gets progressively worse, if you should develop w orsening pain, nausea, vomiting and cannot keep liquids down, chest pain, difficulty breathing or shortness of breath, fevers over 100F please report to the nearest emergency department. Please call Dr. Douglass's office at [phone] to schedule a f/u appointment this or Saturday & obtain a work note. Please advise your employer you need light duty (cannot lift over 20lbs) for 1 month for medical reasons. If you start to develop back pain like you experienced last week prior to admission, this can be indicative of sludge an your bile duct. If you are having severe pain, nausea or vomiting, report to the emergency room. You will need non-fasting lab work to monitor your liver tests. which will be ordered at your follow-up visit. Unless otherwise directed by Dr. Douglass, you should resume taking your regular medications. As Dr. Douglass reviewed, you must not lift more than 20 lb for the next 4 weeks. Strenuous activities can tear out your sutures and cause an incisional hernia that would require another operation. Activities to be avoided include: sports, running, bicycling, yoga, lifting more than 20 lb, digging, gardening, splitting/carrying wood, swimming, hiking uphill, and other activities. If you have questions regarding this specific activity, please check with Dr. Douglass. If your incisions become red, swollen, tender or draining pus, please contact Dr. Douglass or go to the nearest emergency department. Do not shower or bathe for 24 hours. You can shower tomorrow, 01/30. If there are bandages on your incisions, remove them in 48 hours. Do not soak in a tub or swimming pool until your incisions have completely sealed, usually 2 or more weeks. After the dressings are removed in 48 hours, you will notice paper tapes called butterflies/Steri-Strips. These tapes will fall off on their own in 1-2 weeks. You do not need to apply another bandage unless your clothing irritates your incisions. If you need to place another Band-Aid on your incisions, be sure to wait until the Steri strip is dry. You have been prescribed narcotic pain medicine that will cause constipation. Please purchase nbwa-bii-[id number] stool softener known as Colace/docusate, 100 mg. Take 2 tablets with breakfast and the morning and 2 tablets in the evening after dinner until your bowels are moving and urine or longer taking narcotics. Please note that if you are not taking narcotics, the general anesthesia for the procedure can still cause constipation. If you experience diarrhea, stop taking the stool softener medicine. You can take cuxb-tcm-vyazlga Tylenol/acetaminophen with gbht-tlu-bjsnndt ibuprofen or naproxen for pain unless you have an allergy or medical reason you are not not allowed to take these medications, such as peptic ulcers, taking blood thinners or kidney problems. You should also use ice packs to the operative site to help minimize pain and swelling for the first 3 days, or as needed afterwards. Unless there is a medical reason to avoid these medicines, you should take 2 alkx-mqi-dmrvadt Tylenol with two (2) coff-szy-nrvscey ibuprofen together, every 6 hours for the first 3 days to help with pain. Remember that the gallbladder helps to to digest fatty foods. If you eat fried foods; rich, creamy sauces; cheese; gravies or other such heavy, greasy foods, you will likely develop gas and bloating and diarrhea. To minimize this risk, eat a high protein, high-fiber, low-fat diet for the next few weeks. Care Plan Goals: Adequate postoperative healing and low-fat diet Health Concerns: Watch for continued common bile duct debris/recurring pain Plan of Treatment: Allow postoperative healing and trend liver function tests Assessment: Choledocholithiasis, transient status post lap choly 01/28/2023
[2023-01-29 11:34] VITALS: BP 120/62; PULSE 78; RESP 20; TEMP 37.2; O2SAT 95
--- NOTE | 2023-01-29 11:56 | MHC.CM.PN ---
Female 32 is discharged to home today self care. She has arranged for transportation home.
== END 2023-01-29 11:55 | disposition home or self-care (01) | DRG 263 ==
LOC: HO.ED 13:09 → HO.S3 13:09
PROVIDERS: Admitting Provider Surgery; Emergency Provider Emergency Medicine; Visit Provider Surgery
PROC: 0FT44ZZ Resection of Gallbladder, Percutaneous Endoscopic Approach (ICD-10-PCS; CPT 47562; principal; 2023-01-28 08:00)
DX: K80.50 Calculus of bile duct without cholangitis or cholecystitis without obstruction (principal); E03.9 Hypothyroidism, unspecified; R79.89 Other specified abnormal findings of blood chemistry; E66.01 Morbid (severe) obesity due to excess calories; Z68.32 Body mass index [BMI] 32.0-32.9, adult; Z79.890 Hormone replacement therapy
CPT/HCPCS: 36415; 74177; 74181; 76705; 80053; 81001; 81025; 82150; 82248; 83690; 84702; 85025; 87040; 87086; 88304; 99285; J0290; J0690; J1100; J1170; J1643; J1885; J2250; J2270; J2405; J2765; J3010; Q9967

== ENCOUNTER → 2023-01-31 09:46 | Outpatient (BNVA) | payer OTHER, SELFPAY | PROVIDERS: Visit Provider Surgery | DX: Z48.815 Encounter for surgical aftercare following surgery on the digestive system (principal); R79.89 Other specified abnormal findings of blood chemistry; E66.01 Morbid (severe) obesity due to excess calories; Z68.32 Body mass index [BMI] 32.0-32.9, adult; Z90.49 Acquired absence of other specified parts of digestive tract | CPT/HCPCS: 99212 ==